=== PATIENT | male | born 1985 | race Caucasian/White ===

== ENCOUNTER 2021-09-26 15:47 | Outpatient (REF) | payer MEDICAID, SELFPAY ==
--- NOTE | ~2021-09-26 | US_ITS ---
EXAMINATION: US SCROTUM CLINICAL INFORMATION: Worsening swelling. History of left varicocele. COMPARISON: Ultrasound scrotum 12/08/2016. TECHNIQUE: A sonogram of the scrotum was performed assessing lyons-scale appearance and color Doppler flow. Spectral Doppler analysis of the arterial and venous flow were performed in the testes bilaterally. FINDINGS: RIGHT: Right testicle measures 5.9 x 2.8 x 3.7 cm, volume 32.5 mL. No focal parenchymal solid lesion is seen. There is a benign macrocalcification. Spectral Doppler analysis of the arterial and venous flow is normal in the right testis. Right epididymal head is normal in size. A 4 mm epididymal head cyst versus spermatocele is seen. No right hydrocele or varicocele is seen. Right epididymal Doppler flow is normal. LEFT: Left testicle measures 6.1 x 2.4 x 2.6 cm, volume 20.5 mL. There are a few scattered macrocalcifications incidentally noted. Spectral Doppler analysis of the arterial and venous flow is increased in the left testis. Left epididymal head is normal in size. A 7 mm left epidural head versus spermatocele is seen. No left varicocele is seen. There are left varicoceles, accentuated with Valsalva maneuver. Left epididymal Doppler flow is normal. US/US scrotum IMPRESSION: 1. There is mild asymmetric increase in left testicular vasculature, which can be associated with orchitis. This requires clinical correlation. 2. No focal testicular mass or torsion is seen bilaterally. 3. There are small bilateral epididymal head cysts versus spermatoceles. 4. There are left varicoceles, accentuated with Valsalva maneuver.
== END 2021-09-26 15:48 | disposition home or self-care (01) ==
LOC: HO.US 15:47
PROVIDERS: Visit Provider Nurse Practitioner Primary Care
DX: N50.89 Other specified disorders of the male genital organs (principal)
CPT/HCPCS: 76870

== ENCOUNTER 2023-06-10 06:04 | Outpatient (REF) | payer MEDICAID, SELFPAY | END 2023-06-10 06:05 | disposition home or self-care (01) | LOC: HO.HOSX 06:04 | PROVIDERS: Visit Provider Physician Assistant | DX: Z13.89 Encounter for screening for other disorder (principal) ==

== ENCOUNTER 2023-07-09 10:39 | Outpatient (REF) | payer MEDICAID, SELFPAY | END 2023-07-09 10:40 | disposition home or self-care (01) | LOC: HO.HOSX 10:39 | PROVIDERS: Visit Provider Physician Assistant | DX: Z13.89 Encounter for screening for other disorder (principal) ==

== ENCOUNTER 2023-10-28 12:52 | Outpatient (REF) | payer MEDICAID, SELFPAY ==
[2023-10-28 16:24] LABS: Estimated Average Glucose 114 mg/dL; Hemoglobin A1c % 5.6 % (<6.0)
[2023-10-28 16:43] LABS: Anion Gap 15 (12-20); Blood Urea Nitrogen 17 mg/dL (9-16); Carbon Dioxide 24 mmol/L (22-29); Chloride 103 mmol/L (96-108); Cholesterol 201 mg/dL (<200); Estimated Glomerular Filt Rate > 60; Glucose Random 114 mg/dL (60-115); HDL Cholesterol 42 mg/dL (>40); LDL Cholesterol Calculated 125 mg/dL (<100); Potassium 3.6 mmol/L (3.3-5.1); Sodium 138 mmol/L (135-145); Triglycerides 173 mg/dL (<150)
== END 2023-10-28 12:53 | disposition home or self-care (01) ==
LOC: HO.HHCL 12:52
PROVIDERS: Visit Provider Nurse Practitioner Primary Care
DX: E78.1 Pure hyperglyceridemia (principal); R73.01 Impaired fasting glucose; I10 Essential (primary) hypertension
CPT/HCPCS: 36415; 80048; 80061; 82043; 82570; 83036

== ENCOUNTER 2023-10-28 14:48 | Outpatient (REF) | payer MEDICAID, SELFPAY ==
[2023-10-28 17:35] LABS: Creatinine Urine 130.93 mg/dL; Microalbum/Creatinine Ratio Ur 4.5 ug/mg cr (<30)
== END 2023-10-28 14:49 | disposition home or self-care (01) ==
LOC: HO.HHCL 14:48
PROVIDERS: Visit Provider Nurse Practitioner Primary Care
DX: I10 Essential (primary) hypertension (principal)
CPT/HCPCS: 82043; 82570

== ENCOUNTER 2024-07-20 10:32 | Outpatient (AMB) | payer MEDICAID, SELFPAY ==
--- NOTE | 2024-07-20 10:34 | A.OFFVIS_ITS ---
Vital Signs 07/20/24 10:36 Height 6 ft 3 in Weight 278 lb BMI 34.7 Intake Visit Reasons: FINISHER HOT STRIP-Ganglion Cyst Of Left Wrist Intake Note: Shahram is a 38 year old right hand dominant male who presents today for a new patient visit with complaints of a cyst on the left wrist. It is on his volar aspect of hand. This causes him pain when he moves his left thumb, heavy lifting and applying pressure. He has noticed it has increased in size. Patient reports that he also has pain in his left elbow. Denies injury or any falls. Accompanied by: Adele Allergies No Known Allergies [No Known Allergies*] Allergy (Unverified 07/20/24 10:36) HPI HPI FINISHER HOT STRIP-Ganglion Cyst Of Left Wrist: Details: Patient 38-year-old male who presents for evaluation of left volar wrist ganglion cyst, ongoing for approximately 6 weeks. Patient states that this has began is very small and not bothersome, but has since grown larger and causes him discomfort with range of motion of the left wrist. Patient states he is interested in excision of this cyst. Denies any numbness or tingling in the left hand. No other acute complaints or concerns at this time. PENDING SALE TO [facility] Surgical History (Updated 07/20/24 @ 10:40 by SHIRA Devine) S/P cubital tunnel release Social History (Updated 07/20/24 @ 10:40 by SHIRA Devine) Current occupational status: employed Current occupation: chofer/ rt hand Review of Systems Const All systems reviewed & are unremarkable except as noted in HPI and below Physical Exam Vital Signs: BMI result Body Mass Index 34.7 Extrem Other: Patient is alert, oriented, and in no acute distress. Neuro: Normal sensation of the tips of all digits of the left hand at this time Vascular: Cap refill brisk Pain: No tenderness to palpation about the left volar wrist ganglion Patient does report pain with extension of the left wrist in the area of the cyst ROM: Patient is able to flex and extend all digits of the left hand fully and without difficulty Skin: There is noted to be a prominent, approximately 1.5 cm in diameter ganglion cyst noted on the volar aspect of the patient's left wrist No lacerations or abrasions. General: No ecchymosis, erythema, or evidence of infection. Psych: Appears grossly normal Affect normal Attitude cooperative Assessment & Plan Assessment & Plan (1) Ganglion cyst of volar aspect of left wrist: Code(s): M67.432 - Ganglion, left wrist Category: Medical Plan 1. Left wrist volar ganglion cyst I educated the patient about the condition. I discussed both operative and nonoperative treatment options. The patient would like to proceed with surgery. The risks and benefits of operative treatment were discussed with the patient and the patient wishes to proceed with surgery. These risks include, but are not limited to, risk of damage to blood vessels, nerves, tendons, infection, recurrence, incomplete relief of preoperative symptoms, persistent pain, possible need for further surgery, and the risks associated with regional blocks and/or anesthesia. Plan is to take the patient to the operating room at some point in the next few weeks for the following procedures: 1. Left volar wrist ganglion excision under general anesthesia All of the preoperative paperwork including the consent was discussed today. All of the patient's questions were answered in the clinic today. The patient understands that they will be in contact with our surgical scrub technologist to discuss scheduling their procedure. Patient denies diabetes, blood thinners, asthma, heart issues, lung issues, kidney issues, or current smoking. Coding Level of Care Code New Pt Level 4 (58719) Diagnoses Ganglion cyst of volar aspect of left wrist M67.432
[2024-07-20 10:36] VITALS: BMI 34.7
== END 2024-07-20 10:56 | disposition home or self-care (01) ==
PROVIDERS: PCP Nurse Practitioner Primary Care
DX: M67.432 Ganglion, left wrist (principal)
CPT/HCPCS: 99204

== ENCOUNTER → 2024-07-20 10:32 | Outpatient (BNVA) | payer MEDICAID, SELFPAY | PROVIDERS: PCP Nurse Practitioner Primary Care | DX: M67.432 Ganglion, left wrist (principal) | CPT/HCPCS: 99212 ==

== ENCOUNTER 2024-10-03 10:24 | Outpatient (AMB) | payer MEDICAID, SELFPAY ==
--- NOTE | 2024-10-03 10:57 | MHC.OFFVIS ---
Vital Signs 10/03/24 10:58 Height 6 ft 3 in Weight 278 lb BMI 34.7 Intake Visit Reasons: Preop - LT VWG Excision 10/05/24 Intake Note: Shahram 38 yr old male presents today for his pre- op visit for his left volar wrist ganglion cyst excision that is scheduled for 10/05/[address] Baltazar. Consents have been signed and surgery questions have been answered. Allergies No Known Allergies [No Known Allergies*] Allergy (Unverified 07/20/24 10:36) HPI HPI Preop - LT VWG Excision 10/05/24: Details: Shahram is a 38 year old right hand dominant man who presents for his left volar wrist ganglion. He reports this mass has been present for ~6 months, and has been increasing in size. 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 [facility] Medical History (Updated 10/03/24 @ 07:59 by Thania Mark RN) HTN (hypertension) Surgical History (Updated 07/20/24 @ 10:40 by SHIRA Devine) S/P cubital tunnel release Social History (Updated 07/20/24 @ 10:40 by SHIRA Devine) Current occupational status: employed Current occupation: chofer/ rt hand Review of Systems Const All systems reviewed & are unremarkable except as noted in HPI and below Physical Exam Vital Signs: BMI result Body Mass Index 34.7 Const General: cooperative, healthy appearing and no acute distress Orientation/consciousness: patient oriented x3 HEENT Head: Yes normocephalic and Yes atraumatic Eyes EOM: EOMs intact bilaterally Resp Effort & Inspection: normal respiratory effort and able to speak in complete sentences Cardio Jugular venous distension: no JVD Skin General skin exam: turgor normal Rashes: no rashes Neuro General: patient oriented x3 Extrem Other: Evaluation of Left Upper Extremity: The patient is alert, oriented, and in no acute distress Neuro: Median, Ulnar, Radial nerves motor and sensory intact and sensation is normal to the tips of all digits Vascular: Cap refill brisk ROM: He can make a fist and extend all his digits No locking or catching Skin: No lacerations or abrasions. General: No Ecchymosis. No Erythema or evidence of infection. There is a mass on the volar aspect of the right wrist, consistent with a ganglion, measuring ~1.5cm in diameter. This is at the distal wrist crease Psych Appearance: grossly normal Affect: normal affect Attitude: cooperative Assessment & Plan Assessment & Plan (1) Ganglion cyst of volar aspect of left wrist: Code(s): M67.432 - Ganglion, left wrist Category: Medical Plan Assessment & Plan: 1. Left volar wrist ganglion Measuring ~1.5cm in diameter I educated him about this condition I discussed operative and non-operative treatment options The patient would like to proceed with surgery He was given a note to return to work 5 days after surgery, with a 2lb weight limit for 4 weeks. He says he has a placement as a monitor and will not be required to do any lifting or dirty activities. The risks and benefits of operative treatment were discussed with the patient and the patient wishes to proceed with surgery. These risks include, but are not limited to risk of damage to blood vessels, nerves, tendons, infection, recurrence, incomplete relief of preoperative symptoms, persistent pain, possible need for further surgery and the risks associated with regional blocks and anesthesia. The plan is to take the patient to the operating room sometime on 10/05/24 for the following procedures: 1. Left volar wrist ganglion excision, under general All of the preoperative paperwork including the consent was reviewed today. All the patient's questions were answered. He denies Diabetes, blood thinners, asthma, heart, lung, kidney issues Scribed for Simona Baltazar MD by Gene Casillas, nuclear medical technologist, on 10/03/24 at 11:10 AM, EST. Coding Level of Care Code Est Pt Level 4 (84478) Diagnoses Ganglion cyst of volar aspect of left wrist M67.432
[2024-10-03 10:58] VITALS: BMI 34.7
--- OUTSIDE RECORDS SUMMARY | 2024-10-03 12:20 | XMS_ITS | Clinical Summary ---
Author Organization [employer] [facility] ity Address [address] [place] [address] Care Team Providers Care Senior J2Ee Developer Name Role Phone Unavailable Primary Care Provider Unavailabl e Social History Tobacco Use Types Packs/Day Years Used Date Smoking Tobacco: Never Assessed Sex and Gender Information Value Date Recorded Sex Assigned at Not on file Legal Sex Male 10:52 PM EST Gender Identity Not on file Sexual Orientation Not on file Plan of Treatment Health Maintenance Due Date Last Done Comments DTaP,Tdap,and Td Vaccines (1 - Tdap) 2005 Hepatitis B Vaccines (1 of 3 - 19+ 3-dose series) 2005 COVID-19 Vaccine (2023-2 5 season) 2024 Influenza Vaccine (Season Ended) 2025 HIB Vaccines Aged Out No longer eligi ble based on patient's age to complete this topic HPV Vaccines Aged Out No longer eligi ble based on patient's age to complete this topic Hepatitis A Vaccines Aged Out No long er eligible based on patient's age to complete this topic IPV Vaccines Aged Out No longer eligi ble based on patient's age to complete this topic MMR Vaccines Aged Out No longer eligi ble based on patient's age to complete this topic Meningococcal ACWY Vaccine Aged Out N o longer eligible based on patient's age to complete this topic Meningococcal B Vaccine Aged Out No l onger eligible based on patient's age to complete this topic Pneumococcal Vaccine: Pediat rics (0 to 5 Years) and At-Risk Patients (6 to 64 Years) Aged Out No longer eligible b ased on patient's age to complete this topic RSV Immunization Patients Un mahendra 20 months Aged Out No longer eligible b ased on patient's age to complete this topic Varicella Vaccines Aged Out No longer eligible based on patient's age to complete this topic
--- OUTSIDE RECORDS SUMMARY | 2024-10-03 12:20 | XMS_ITS | Encounter Summary ---
Author Organization [employer] Address [address] [facility] 7t [place] [address] Care Team Providers Care Stockbroker Name Role Phone Karon Dickson Primary Care Provider [phone] Reason for Visit * Reason Onset Date Comments Med Refill 10/20/2023 Encounter Details Date Type Department Care Team ([facility] st Contact Info) Description 10/20/2023 Refill [facility] [address] [place], [place] [phone] Karon Dickson ANP [address] [place] [address] Impingement syndrome of right shoulder region Social History Tobacco Use Types Packs/Day Years Used Date Smoking Tobacco: Former Cigarettes Q uit: 2015 Smokeless Tobacco: Never Alcohol Use Standard Drinks/Week Comments Not Currently 0 (1 standard drink = 0.6 oz pur e alcohol) Alcohol Answer Date Recorded Frequency of Alcohol Consumption Not on file 06/24/2023 Average Number of Drinks Not on file 023 Frequency of Binge Drinking Not on file 05/29 Score 0 06/24/2023 Depression Answer Date Recorded Patient Health Questionnaire-9 Score 0 06/24/2023 Patient Health Questionnaire-9 Score 0 06/24/2023 Last PHQ-9: Questionnaire Data Not on file 1 08/25/2022 Housing Stability Answer Date Recorded What is your housing situation today? I have lupe ramírez 04/12/[address] you li ve. Do you have problems with any of the following? None of the above 04/12/2023 Food Insecurity Answer Date Recorded Within the past 12 months, y ou worried that your food would run out before you got money to buy more: Never True 04/12/2023 Within the past 12 months,th e food you bought just didn't last and you didn't have enough money to get more: Never True Transportation Answer Date Recorded In the past 12 months, has l ack of transportation kept you from medical appts, meetings, work or from getting things needed for daily living? No 04/12/2023 Utilities Answer Date Recorded In the past 12 months, has t he [employer], gas, oil or water company threatened to shut off services in your home? No 04/12/2023 Depression Answer Date Recorded Patient Health Questionnaire-2 Score 0 06/24/2023 Sex and Gender Information Value Date Recorded Sex Assigned at Male 04/27/2022 10:30 AM EDT Legal Sex Male 10:30 AM EDT Gender Identity Male 04/27/2022 10:30 AM EDT Sexual Orientation Straight 04/27/2022 10 :30 AM EDT Travel History Travel Start Travel End [place] 08/18/2024 09/15/2024 [place] 08/26/2024 09/08/2024 documented as of this encounter Plan of Treatment Upcoming Encounters Date Type Department Care Team (Late st Contact Info) Description 10/10/2024 10:00 AM EDT Office Visit [facility] [address] [place] [address] Felton Lerma MD [address] [place] [address] 10/17/2024 11:00 AM EDT Office Visit [facility] [address] [place] [address] Karon Dickson ANP [address] [place] [phone] 11/10/2024 1:00 PM EDT Office Visit [address] [address] Karon Dickson ANP [address] [place] [address] 12/27/2024 10:30 AM EDT Clinical Support [facility] [address] [place] [address] Sol Lennon, RN [address] [place] [address] documented as of this encounter Visit Diagnoses Diagnosis Impingement syndrome of right shoulder region documented in this encounter Additional Health Concerns Assessment Noted Time PHQ-9 Depression Total Score: 0 06/24/20 23 2:47 PM EST documented as of this encounter Care Teams Stockbroker Relationship Specialty Start Date End Date Karon Dickson ANP [address] [place] [address] PCP - General Family Medicine 08/27/20 documented as of this encounter
--- OUTSIDE RECORDS SUMMARY | 2024-10-03 12:20 | XMS_ITS | Encounter Summary ---
Author Organization [email or web address] Address [address] [facility] 7[address] [place] [address] Care Team Providers Care Briquetter Operator Name Role Phone Karon Dickson Primary Care Provider [phone] Reason for Visit * Reason Onset Date Comments Med Refill 04/20/2023 Encounter Details Date Type Department Care Team ([facility] st Contact Info) Description 04/20/2023 Refill [facility] [address] [place] [address] Karon Dickson ANP [address] [place] [address] Impingement syndrome of right shoulder region Social History Tobacco Use Types Packs/Day Years Used Date Smoking Tobacco: Former Cigarettes Smokeless Tobacco: Never Alcohol Use Standard Drinks/Week Comments Not Currently 0 (1 standard drink = 0.6 oz pur e alcohol) PHQ-2 Answer Date Recorded Patient Health Questionnaire-2 Score 0 11/24/2022 Housing Stability Answer Date Recorded What is [...] the past 12 months, has t he electric, gas, oil or water company threatened to shut off services in your home? No 04/12/2023 Depression Answer Date Recorded Patient Health Questionnaire-2 Score 0 11/24/2022 Sex and Gender Information Value Date Recorded Sex Assigned at Male 04/27/2022 10:30 AM EDT Legal Sex Male 10:30 AM EDT Gender Identity Male 04/27/2022 10:30 AM EDT Sexual Orientation Straight 04/27/2022 10 :30 AM EDT Travel History Travel Start Travel End [place] 08/18/2024 09/15/2024 [place] 08/26/2024 09/08/2024 documented as of this encounter Plan of Treatment Upcoming Encounters Date Type Department Care Team ([facility] st Contact Info) Description 10/10/2024 10:00 AM EDT Office Visit [facility] MED [facility] PEDS [address] [place] [address] Felton Lerma MD [address] [place] [address] 10/17/2024 11:00 AM EDT Office Visit [address] [address] Karon Dickson ANP [address] [place] [address] 11/10/2024 1:00 PM EDT Office Visit [address] [address] Karon Dickson ANP [address] [place] [address] 12/27/2024 10:30 AM EDT Clinical Support [facility] MED & PEDS [address] [place] [address] Sol Lennon RN [address] [place] [address] documented as of this encounter Visit Diagnoses Diagnosis Impingement syndrome of right shoulder region documented in this encounter Care Teams Briquetter Operator Relationship Specialty Start Date End Date Karon Dickson ANP [address] [place] [address] PCP - General Family Medicine 08/27/20 documented as of this encounter
--- OUTSIDE RECORDS SUMMARY | 2024-10-03 12:20 | XMS_ITS | Encounter Summary ---
Author Organization [employer] Address [address] [facility] [address] [place] [address] Care Team Providers Care Management Scientist Name Role Phone Karon Dickson Primary Care Provider [phone] Reason for Visit * Reason Onset Date Comments Med Refill 12/16/2023 Encounter Details Date Type Department Care Team ([facility] st Contact Info) Description 12/16/2023 Refill [facility] [address] [place], [place] [phone] Karon Dickson ANP [address] [place] [address] Impingement syndrome of right shoulder region Social [...] the past 12 months, has t he [employer], gas, oil or water company threatened to [...] EDT Travel History Travel Start Travel End [place] 08/18/2024 09/15/2024 [place] 08/26/2024 09/08/2024 documented as of this encounter Plan of Treatment Upcoming Encounters Date Type Department Care Team (Late st Contact Info) Description 10/10/2024 10:00 AM EDT Office Visit [facility] [address] [place] [address] Felton Lerma MD [address] [place] [address] 10/17/2024 11:00 AM EDT Office Visit [facility] [address] [place] [address] Karon Dickson ANP [address] [place] [phone] 11/10/2024 1:00 PM EDT Office Visit [address] [address] Karon Dickson ANP [address] [place] [address] 12/27/2024 10:30 AM EDT Clinical Support [facility] [address] [place] [address] Sol Lennon, RN [address] [place] [address] documented as of this encounter Visit Diagnoses Diagnosis Impingement syndrome of right shoulder region documented in this encounter Additional Health Concerns Assessment Noted Time PHQ-9 Depression Total Score: 0 06/24/20 23 2:47 PM EST documented as of this encounter Care Teams Management Scientist Relationship Specialty Start Date End Date Karon Dickson ANP [address] [place] [address] PCP - General Family Medicine 08/27/20 documented as of this encounter
--- OUTSIDE RECORDS SUMMARY | 2024-10-03 12:20 | XMS_ITS | Encounter Summary ---
Author Organization [employer] Address [address] [facility] [address] [place] [address] Care Team Providers Care Measurement Coordinator Name Role Phone Karon Dickson Primary Care Provider Reason for Visit * Reason Comments Med Refill Encounter Details Date Type Department Care Team ([facility] st Contact Info) Description 08/31/2023 Refill [facility] MED & PEDS [address] [place], [place] [phone] Karon Dickson ANP [address] [place] [address] Impingement syndrome of right shoulder region Social [...] EDT Travel History Travel Start Travel End [place] 08/18/2024 09/15/2024 [place] 08/26/2024 09/08/2024 documented as of this encounter Plan of Treatment Upcoming Encounters Date Type Department Care Team (Late st Contact Info) Description 10/10/2024 10:00 AM EDT Office Visit [facility] PEDS [address] [place] [address] Felton Lerma MD [address] [place] [address] 10/17/2024 11:00 AM EDT Office Visit [address] [address] Karon Dickson ANP [address] [place] [phone] 11/10/2024 1:00 PM EDT Office Visit [address] [address] Karon Dickson ANP [address] [place] [address] 12/27/2024 10:30 AM EDT Clinical Support [facility] [address] [place] [address] Sol Lennon, RN [address] [place] [address] documented as of this encounter Visit Diagnoses Diagnosis Impingement syndrome of right shoulder region documented in this encounter Additional Health Concerns Assessment Noted Time PHQ-9 Depression Total Score: 0 06/24/20 23 2:47 PM EST documented as of this encounter Care Teams Measurement Coordinator Relationship Specialty Start Date End Date Karon Dickson ANP [address] [place] [address] PCP - General Family Medicine 08/27/20 documented as of this encounter
--- OUTSIDE RECORDS SUMMARY | 2024-10-03 12:20 | XMS_ITS | Encounter Summary ---
Author Organization [email or web address] Address [address] [facility] 7t [place] [address] Care Team Providers Care Mine Inspector Federal Name Role Phone Karon Dickson Primary Care Provider [phone] Reason for Visit * Reason Onset Date Comments Appointment Request 09/23/2023 Encounter Details Date Type Department Care Team ([facility] Contact Info) Description 09/23/2023 Telephone [facility] MEDICINE [address] [place], [place] [phone] Karon Dickson ANP [address] [place] [address] Appointment Request Social History Tobacco Use Types Packs/Day Years [...] EDT Travel History Travel Start Travel End [place] 08/18/2024 09/15/2024 [place] 08/26/2024 09/08/2024 documented as of this encounter Miscellaneous Notes * Telephone Encounter - Carol Calles - 09/23/2023 9:55 AM EDT Tc from pt calling to inform is Covid Positive, pt is requesting r/s appt. documented in this encounter Plan of Treatment Upcoming Encounters Date Type Department Care Team ([facility] st Contact Info) Description 10/10/2024 10:00 AM EDT Office Visit [facility] MED & PEDS [address] [place] [address] Felton Lerma MD 505 [place] [address] 10/17/2024 11:00 AM EDT Office Visit [facility] MEDICINE [address] [place] [address] Karon Dickson, ROBERT [address] [place] [address] 11/10/2024 1:00 PM EDT Office Visit [facility] MEDICINE [address] [place] [address] Karon Dickson ANP [address] [place] [address] 12/27/2024 10:30 AM EDT Clinical Support [facility]S [address] [place] [address] Sol Lennon, RN [address] [place] [address] documented as of this encounter Visit Diagnoses Not on filedocumented in this encounter Additional Health Concerns Assessment Noted Time PHQ-9 Depression Total Score: 0 06/24/20 23 2:47 PM EST documented as of this encounter Care Teams Mine Inspector Federal Relationship Specialty Start Date End Date Karon Dickson ANP [address] [place] [id number] PCP - General Family Medicine 08/27/20 documented as of this encounter
--- OUTSIDE RECORDS SUMMARY | 2024-10-03 12:20 | XMS_ITS | Encounter Summary ---
Author Organization [employer] Address [address] [facility] 7t [place] [address] Care Team Providers Care Washing Machine Loader Name Role Phone Karon Dickson Primary Care Provider [phone] Reason for Visit * Reason Onset Date Comments Med Refill 09/27/2023 Encounter Details Date Type Department Care Team ([facility] st Contact Info) Description 09/27/2023 Refill [facility] MEDICINE [address] [place], [place] [phone] Karon Dickson ANP [address] [place] [address] Cervical radiculopathy Social History Tobacco Use Types Packs/Day Years [...] the past 12 months, has t he [employer], gas, oil or water company threatened to [...] EDT Travel History Travel Start Travel End [place] 08/18/2024 09/15/2024 [place] 08/26/2024 09/08/2024 documented as of this encounter Plan of Treatment Upcoming Encounters Date Type Department Care Team (Late st Contact Info) Description 10/10/2024 10:00 AM EDT Office Visit [facility] MED & PEDS [address] [place] [address] Felton Lerma MD 505 [place] [address] 10/17/2024 11:00 AM EDT Office Visit [facility] MEDICINE [address] [place] [address] Karon Dickson ANP [address] [place] [address] 11/10/2024 1:00 PM EDT Office Visit [address] [address] Karon Dickson ANP [address] [place] [address] 12/27/2024 10:30 AM EDT Clinical Support [facility] MED & PEDS [address] [place] [address] Sol Lennon, RN 505 [place] [address] documented as of this encounter Visit Diagnoses Diagnosis Cervical radiculopathy Brachial neuritis or radiculitis nos documented in this encounter Additional Health Concerns Assessment Noted Time PHQ-9 Depression Total Score: 0 06/24/20 23 2:47 PM EST documented as of this encounter Care Teams Washing Machine Loader Relationship Specialty Start Date End Date Karon iDckson ANP [address] [place] [address] PCP - General Family Medicine 08/27/20 documented as of this encounter
--- OUTSIDE RECORDS SUMMARY | 2024-10-03 12:20 | XMS_ITS | Encounter Summary ---
Author Organization [employer] Address [address] [facility] 7t [place] [address] Care Team Providers Care Service Order Dispatcher Chief Name Role Phone Karon Dickson Primary Care Provider [phone] Encounter Details Date Type Department Care Team ([facility] Contact Info) Description 08/15/[address] [facility] MEDICINE [address] [place], [place] [phone] Karon Dickson ANP [address] [place], [place] [phone] Social History Tobacco Use Types Packs/Day Years [...] Answer Date Recorded Patient Health Questionnaire-9 Score 1 07/11/2024 Patient Health Questionnaire-9 Score 1 07/11/2024 Last PHQ-9: Questionnaire Data Not on file 0 07/11/2024 Housing Stability Answer Date Recorded What is [...] Date Recorded Patient Health Questionnaire-2 Score 0 07/11/2024 Sex and Gender Information Value Date Recorded Sex Assigned at Male 04/27/2022 10:30 AM EDT Legal Sex Male 10:30 AM EDT Gender Identity Male 04/27/2022 10:30 AM EDT Sexual Orientation Straight 04/27/2022 10 :30 AM EDT Travel History Travel Start Travel End [place] 08/18/2024 09/15/2024 [place] 08/26/2024 09/08/2024 documented as of this encounter Miscellaneous Notes * Telephone Encounter - Jessica Oliva RN - 08/15/2024 1:09 PM EST TC placed to pt who states that per [facility] pharmacy the pt needs additional information/documentation in order to have the Amnesteem 40 MG capsule prescribed. Ordering provider is Dr. Lerma at [facility] dermatology. Will forward this message to the [facility] inbox to inquire with Dr. Lerma and [facility] pharmacy what is needed. * Telephone Encounter - Mona Roblero - 08/15/2024 10:19 AM EST Tc from pt calling to inform pharmacy is not able to distribute medication due needing additional information. Shovel Handle Assembler called pharmacy and was inform a I pledge survey needs to be done. Pt has no moremedication left. documented in this encounter Plan of Treatment Upcoming Encounters Date Type Department Care Team (Late st Contact Info) Description 10/10/2024 10:00 AM EDT Office Visit [facility] MED & PEDS [address] [place] [address] Felton Lerma MD 505 [place] [address] 10/17/2024 11:00 AM EDT Office Visit [address] [address] Karon Dickson ANP [address] [place] [address] 11/10/2024 1:00 PM EDT Office Visit [address] [address] Karon Dickson ANP [address] [place] [address] 12/27/2024 10:30 AM EDT Clinical Support [facility] MED & PEDS [address] [place] [address] Sol Lennon RN 505 [place] [address] documented as of this encounter Visit Diagnoses Not on filedocumented in this encounter Additional Health Concerns Assessment Noted Time PHQ-9 Depression Total Score: 1 07/11/19 25 11:22 AM EST documented as of this encounter Care Teams Service Order Dispatcher Chief Relationship Specialty Start Date End Date Karon Dickson ANP [address] [place] [address] PCP - General Family Medicine 08/27/20 documented as of this encounter
--- OUTSIDE RECORDS SUMMARY | 2024-10-03 12:20 | XMS_ITS | Clinical Summary ---
Author Organization [employer] Address 75 [facility] 7t [place] [address] Care Team Providers Care Delivery Rep Name Role Phone Karon Dickson ROBERT Primary Care Provider Allergies No known active allergies Medications acetaminophen (Tylenol 8 Hour) 650 MG ER tablet Take 1 tablet by mouth in the morning and 1 tablet at noon and 1 tablet in the evening. 05/05/20 19 Active adapalene (Differin) 0.1 % gel Apply topically at bed time. 11/10/19 20 Active benzoyl peroxide (Benzac AC) 10 % external wash Apply topically every 12 (twelve) hours. 11/10/19 20 Active Blood Pressure Monitoring (Omron 3 Series BP Monitor) device USE TO CHECK BLOOD PRESSURE DIRECTED 03/30/20 22 Active hydrocortisone 2.5 % cream APPLY TOPICALLY TWICE A DAY FOR 1-2 WEEKS 04/29/20 22 Active B Complex Vitamins (vitamin B complex) tablet TAKE 1 TABLET BY MOUTH EVERY DAY 90 tablet 3 05/26/20 23 Active benzoyl peroxide (PanOxyl Foaming Wash) 10 % external washIndications: Inflammatory acne Apply topically 2 times daily. 187 g 2 02/22/20 24 025 Active adapalene (Differin) 0.1 % gelIndications:I nflammatory acne,Folliculiti s Apply topically at bedtime. 45 g 2 02/22/20 24 025 Active minocycline 50 MG capsuleIndicatio ns:Inflammatory acne TAKE 1 CAPSULE BY MOUTH EVERY DAY 30 capsule 2 05/31/20 24 Active olmesartan (BENIcar) 40 MG tabletIndication s:Essential hypertension Take 1 tablet (40 mg) by mouth Once per day. 90 tablet 1 07/19/19 25 Active famotidine (Pepcid) 20 MG tabletIndication s:Gastroesophage al reflux disease, unspecified whether esophagitis present TAKE 1 TABLET TWICE DAILY NEEDED FOR ACID REFLUX 180 tablet 08/15/19 25 Active ISOtretinoin (Amnesteem) 40 MG capsuleIndicatio ns:Inflammatory acne Take 1 capsule (40 mg) by mouth with breakfast and with evening meal. 60 capsule 08/21/19 25 Active diclofenac (Cataflam) 50 MG tabletIndication s:Cervical radiculopathy TAKE 1 TABLET BY MOUTH TWICE A DAY 60 tablet 09/15/19 25 Active lidocaine (Lidoderm) 5 % patch APPLY 1 PATCH ONTO SKIN EVERY DAY. MAY WEAR UP TO 12 HOURS, THEN REMOVE FOR 12 HOURS 30 patch 09/21/19 25 Active cyclobenzaprine (Flexeril) 5 MG tabletIndication s:Impingement syndrome of right shoulder region TAKE 1-2 TABS BY MOUTH AT BEDTIME NEEDED FOR MUSCLE CRAMP/SPASM 60 tablet 09/21/19 25 Active traMADol (Ultram) 50 MG tabletIndication s:Impingement syndrome of right shoulder region Take 2 tablets (100 mg) by mouth at bedtime for 7 days. 14 tablet 10/03/19 25 025 Active lidocaine (Lidoderm) 5 % patch APPLY 1 PATCH ONTO SKIN EVERY DAY. MAY WEAR UP TO 12 HOURS, THEN REMOVE FOR 12 HOURS 30 patch 08/15/19 25 025 Discontinued(R eorder (will not trigger notification to Pharmacy)) diclofenac (Cataflam) 50 MG tabletIndication s:Cervical radiculopathy TAKE 1 TABLET BY MOUTH TWICE A DAY 60 tablet 08/17/19 25 025 Discontinued(R eorder (will not trigger notification to Pharmacy)) cyclobenzaprine (Flexeril) 5 MG tabletIndication s:Impingement syndrome of right shoulder region TAKE 1-2 TABS BY MOUTH AT BEDTIME NEEDED FOR MUSCLE CRAMP/SPASM 60 tablet 08/17/19 25 025 Discontinued traMADol (Ultram) 50 MG tabletIndication s:Impingement syndrome of right shoulder region Take 2 tablets (100 mg) by mouth at bedtime for 28 days. 56 tablet 08/20/19 25 025 Discontinued(R eorder (will not trigger notification to Pharmacy)) traMADol (Ultram) 50 MG tabletIndication s:Impingement syndrome of right shoulder region Take 2 tablets (100 mg) by mouth at bedtime for 7 days. 14 tablet 09/15/19 25 09/20/ 025 Discontinued(R eorder (will not trigger notification to Pharmacy)) traMADol (Ultram) 50 MG tabletIndication s:Impingement syndrome of right shoulder region Take 2 tablets (100 mg) by mouth at bedtime for 7 days. Do not start before September 21, 2024. 14 tablet 09/22/19 25 025 Discontinued(R eorder (will not trigger notification to Pharmacy)) traMADol (Ultram) 50 MG tabletIndication s:Impingement syndrome of right shoulder region Take 2 tablets (100 mg) by mouth at bedtime for 7 days. 14 tablet 09/27/19 25 025 Discontinued(R eorder (will not trigger notification to Pharmacy)) Active Problems Problem Noted Date Diagnosed Date Long-term current use of opiate analgesic 2024 Essential hypertension 04/09/2023 Perineal abscess 02/13/2023 Assessment & Plan (02/13/2023 1:01 PM EDT): Pt w skin abscess in perineal area for the past 3 d. Induration is larger than 5 cm, so I recommended that the pt go to ED for drainage. Pt states he cannot go today but reports he will definitely go tomorrow. -Start Bactrim 1 DS BID, prescribed for 7 d - explained to pt that ATB may not be sufficient to treat this large abscess and I still recommended that the patient go to ED for I&D. -Alarm signs and Sx discussed. Pt understood risk of complications if drainage is not performed. -Also discussed w pt that if he keeps having recurrent infection, he can request for bacterial cultures at ER. If Staph aureus is found, he can discuss w PCP about decolonization treatment. 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 Cyst of epididymis 07/10/2016 Hypertriglyceridemia 04/20/2016 Inflammatory acne 04/03/2016 Anxiety 04/03/2016 Obesity 04/03/2016 Encounters Date Type Department Care Team Description 10/03/2024 Telephone [facility] [address] [place] [address] Catrachita Richards [place] appt reschedule (Spoke to pt about the request from him to reshedule ,did explain the pros and cons ,pt agreed to com in 10/17,he has some concerns he stated that if his concerns get worse he will go to walk in.) 10/01/2024 Refill [facility] MEDICINE [address] [place] [address] Karon Dickson ANP Impingement syndrome of right shoulder region 09/26/2024 10:30 AM EDT Clinical Support [facility] MED & PEDS [address] [place] [address] Sol Lennon, ANCA Low back pain due to bilateral sciatica (Primary Dx); retirement (current) use of opiate analgesic; Long-term current use of opiate analgesic 09/26/2024 Telephone [facility] MED & PEDS [address] [place] [address] Sol Lennon, ANCA 09/26/2024 Travel 09/26/2024 Refill [facility] MEDICINE [address] [place] [address] Karon Dickson ANP Impingement syndrome of right shoulder region 09/20/2024 Refill [facility] MED[facility]INE [address] [place] [address] Vane, MD Devon Impingement syndrome of right shoulder region; Cervical radiculopathy 09/20/2024 Refill [facility] MED[facility]INE [address] [place] [address] Karon Dickson ANP Impingement syndrome of right shoulder region 09/20/2024 Refill [facility] [address] [place] [address] Funmi Anders MD 09/15/2024 Travel 09/15/2024 Telephone [facility] MED & PEDS [address] [place] [address] Sol Lennon, ANCA medical education manager 09/14/2024 Refill [facility] MED[facility]INE [address] [place] [address] Kiana Stephenson MD Impingement syndrome of right shoulder region; Cervical radiculopathy 09/14/2024 Refill [facility] MED[facility] [address] [place] [address] Karon Dickson ANP Cervical radiculopathy 09/08/2024 Population Health Risk Score [facility] () [address] [phone] Provider, Population Health Generic 08/21/2024 11:15 AM EST Office Visit [facility] MED & PEDS [address] [place] [address] Felton Lerma MD Inflammatory acne 08/21/2024 Travel 08/18/2024 Refill [facility] MED[facility] [address] [place] [address] Karon Dickson ANP Impingement syndrome of right shoulder region 08/15/2024 Telephone [facility] [address] [place] [address] Karon Dickson ANP 08/15/2024 Refill [facility] [address] [place] [address] Karon Dickson ANP Cervical radiculopathy; Impingement syndrome of right shoulder region 08/13/2024 Refill [facility] [address] [place] [address] Karon Dickson ANP Gastroesophageal reflux disease, unspecified whether esophagitis present 08/07/2024 Refill [facility] & PEDS [address] [place] [address] Felton Lerma MD Inflammatory acne 08/02/2024 Telephone [facility] [address] [place] [address] Lizz Granados [place] Zofia recall 07/21/[address] [facility] [address] [place] [address] Karon Dickson ANP Impingement syndrome of right shoulder region 07/19/[address] [address] Marisela Vila RN Medication Question 07/18/[address] [address] Karon Dickson ANP Call Back Request; Appointment Request 07/11/2024 10:30 AM EST Office Visit [address] [address] Karon Dickson ANP Essential hypertension (Primary Dx); Inflammatory acne; Scalp pruritus; Ganglion cyst of wrist, left 07/11/2024 Travel 07/10/[address] [address] Catrachita Richards MA chart prep from Last 3 Months Immunizations Name Administration Dates Next Due Influenza injectable quadriv alent IIV4 with preservative 04/04/2019 Influenza injectable quadriv alent preservative free 03/30/2022,04/27/2020,07/08/2016 Moderna Covid-19 Vaccine 12+ 12/28/2020,11/17/19 21 Moderna Covid-19 Vaccine 6+ Bivalent 08/18/2022 Tdap 07/08/2016 Social History Tobacco Use Types Packs/Day Years Used Date Smoking Tobacco: Former Cigarettes Q uit: 2015 Smokeless Tobacco: Never Tobacco Cessation:Counseling Given: Not Answered Alcohol Use Standard Drinks/Week Comments Not Currently [...] housing situation today? I have lupe ramírez 08/21/[address] you li ve. Do you have problems with any of the following? None of the above 08/21/2024 Food Insecurity Answer Date Recorded Within the past 12 months, y ou worried that your food would run out before you got money to buy more: Never True 08/21/2024 Within the past 12 months,th e food you bought just didn't last and you didn't have enough money to get more: Never True Transportation Answer Date Recorded In the past 12 months, has l ack of transportation kept you from medical appts, meetings, work or from getting things needed for daily living? No 08/21/2024 Utilities Answer Date Recorded In the past 12 months, has t he electric, gas, oil or water company threatened to shut off services in your home? No 08/21/2024 Depression Answer Date Recorded Patient Health Questionnaire-2 Score 0 07/11/2024 Internet Access Answer Date Recorded Internet Access Q1 Yes 08/21/2024 Internet Access Q2 Not on file 08/21/2024 Sex and Gender Information Value Date Recorded Sex Assigned at Male 04/27/2022 10:30 AM EDT Legal Sex Male 10:30 AM EDT Gender Identity Male 04/27/2022 10:30 AM EDT Sexual Orientation Straight 04/27/2022 10 :30 AM EDT Travel History Travel Start Travel End [place] 08/18/2024 09/15/2024 [place] 08/26/2024 09/08/2024 Last Filed Vital Signs Vital Sign Reading Time Taken Comments Blood Pressure 137/85 08/21/2024 11:11 AM EST Pulse 96 08/21/2024 11:11 AM EST Temperature 36.5 ??C (97.7 ??F) 08/21/2024 11:[address] Respiratory Rate 20 08/21/2024 11:11 AM EST Oxygen Saturation 98% 08/21/2024 11:11 AM EST Inhaled Oxygen Concentration - - Weight 127 kg (281 lb) 08/21/2024 11:11 AM EST Height 190.5 cm (6' 3 ) 08/21/2024 11:11 AM EST Body Mass Index 35.12 08/21/2024 11:11 AM EST Plan of Treatment Upcoming Encounters Date Type Department Care Team (Late st Contact Info) Description 10/10/2024 10:00 AM EDT Office Visit [facility] [address] [place] [address] Felton Lerma MD [address] [place] [address] 10/17/2024 11:00 AM EDT Office Visit [address] [address] Karon Dickson, ANP [address] [place] [address] 11/10/2024 1:00 PM EDT Office Visit [address] [address] Karon Dickson, ANP [address] [place] [address] 12/27/2024 10:30 AM EDT Clinical Support [facility] [address] [place] [address] Sol Lennon RN [address] [place] [address] Health Maintenance Due Date Last Done Comments HIV Screening 1986 Family Planning (PISQ) 2001 Hepatitis C Screening 2004 Hepatitis B Vaccines (1 of 3 - 19+ 3-dose series) 2005 COVID-19 Vaccine ( season) 2024 08/18/2022, 12/28/2020, 11/16/2020 Influenza Vaccine (#1) 2024 , 04/27/2020, 04/04/2019, Additional history exists Alcohol/Substance Use Screening 07/11/2025 07/11/2024 Depression Screening 07/11/2025 07/11/2024, 07/11/19 25 SDOH Screening 08/21/2025 08/21/2024 Tobacco Screening 08/21/2025 08/21/2024 DTaP/Tdap/Td Vaccines (2 - Td or Tdap) 07/08/2026 07/08/2016 Lipid Panel 10/27/2028 10/28/2023, 05/06/2022, 03/21/2021 Zoster Vaccines (1 of 2) 2036 RSV Patients and Patients Aged 60 years or older (1 - 1-dose 75+ series) 2061 HIB Vaccines Aged Out No longer eligi [...] patient's age to complete this topic Meningococcal Vaccine Aged Out No gail sunni eligible based on patient's age to complete this topic Pneumococcal Vaccine: Pediatrics (0 to 5 Years) and At-Risk Patients (6 to 49) Years) Aged Out No longer eligible based on patient's age to complete this topic RSV under 20 months Aged Out No longe r eligible based on patient's age to complete this topic Rotavirus Vaccines Aged Out No longer eligible based on patient's age to complete this topic Procedures Procedure Name Priority Date/Time Associated Diagnosis Comments POCT JANIA-14 URINE DRUG SCREEN Routine 09/26/2024 11:07 AM EDT watermaster (current) use of opiate analgesic Low back pain due to bilateral sciatica LIPID PANEL, STANDARD Routine 10/28/2023 3:28 PM EDT Hypertriglyceridemi a from Last 3 Months or Most Recently Relevant to Health Maintenance Results * POCT JANIA-14 Urine Drug Screen (09/26/2024 11:07 AM EDT) Urine Urine specimen obtained by clean catch procedure / Unknown 09/26/2024 11:07 AM EDT Narrative Sol Lennon RN - 09/26/2024 11:07 AM EDT negative AMP, BAR, BUP, BZO, ZOIE, FTY, MDMA, MET, MOP, MTD, OXY, PCP, TCA, THC. Lot# [id number] Exp: 02-14-26 Karon Dickson ANP POINT OF CARE TEST ENTER/EDIT OR DERABLES Final Result * (ABNORMAL) Lipid Panel, Standard (10/28/2023 3:28 PM EDT) Triglycerides 173(H) <150 mg/dL [facility] Comment:Desirable Triglyceri de: less than 150 mg/dLBorderline High Triglyceride 150-199 mg/dLHigh Triglyceride: 200-499 mg/dLVery High Triglyceride: greater than or equal to 5OO mg/dL Cholesterol 201(H) <200 mg/dL [facility] Comment:Desirable Cholestero l: less than 200 mg/dLBorderline High Cholesterol: 200-239 mg/dLHigh Cholesterol: greater than 239 mg/dL LDL Cholesterol Calculated 125(H) <100 mg/dL [facility] Comment:Desirable LDL: less than 100 mg/dLNear Optimal/Above Optimal LDL: 110- 129 mg/dLBorderline High LDL: 130-159 mg/dLHigh LDL: 160-189 mg/dLVery High LDL: greater than or equal to 190 mg/dL HDL Cholesterol 42 >40 mg/dL [facility] Comment:Desirable HDL: great er than 40 mg/dL Note: This HDL assay may give artificially low results in patients with liver disease. Blood Venous blood specimen / Unknown 10/28/2023 3:28 PM EDT 10/28/2023 4:10 PM EDT Karon Dickson ANP LAB BLOOD ORDERABLES Final Resul t [facility] [address] [place] [address] [phone] from Last 3 Months or Most Recently Relevant to Health Maintenance Insurance [place] [address] C3 Care Teams Delivery Rep Relationship Specialty Start Date End Date Karon Dickson ANP [address] [place] [id number] PCP - General Family Medicine 08/27/20
--- OUTSIDE RECORDS SUMMARY | 2024-10-03 12:20 | XMS_ITS | Encounter Summary ---
Author Organization [facility] Address 75 [facility] 7 [place] [address] Care Team Providers Care Radio Station Operator Name Role Phone Karon Dickson Primary Care Provider [phone] Reason for Visit * Reason Onset Date Comments Call Back Request 07/18/2024 Appointment Request 07/18/2024 Encounter Details Date Type Department Care Team ([facility] Contact Info) Description 07/18/2024 Telephone [facility] [address] [place], [place] [phone] Karon Dickson ANP 230 [place] [address] Call Back Request; Appointment Request Social History Tobacco Use Types Packs/Day Years Used Date Smoking Tobacco: Former Cigarettes Q uit: 2014 Smokeless Tobacco: Never Alcohol Use Standard Drinks/Week [...] the past 12 months, has t he [employer] ([employer] gas, oil or water company threatened to [...] encounter Miscellaneous Notes * Telephone Encounter - Kendy Foley - 07/18/2024 8:23 AM EST Tc from pt requesting a callback to r/s appointment as pt can't make it today. documented in this encounter Plan of Treatment Upcoming Encounters Date Type Department Care Team (Late st Contact Info) Description 10/10/2024 10:00 AM EDT Office Visit [facility] MED & PEDS 505 [place] [address] Felton Lerma MD 505 [place] [address] 10/17/2024 11:00 AM EDT Office Visit [facility] MED[facility]INE [address] [place] [address] Karon Dickson ANP [address] [place] [address] 11/10/2024 1:00 PM EDT Office Visit [facility] [address] [place] [address] Karon Dickson ANP 230 [place] [address] 12/27/2024 10:30 AM EDT Clinical Support [facility] MED & PEDS 505 [place] [address] Sol Lennon, ANCA 505 [place] [address] documented as of this encounter Visit Diagnoses Not on filedocumented in this encounter Additional Health Concerns Assessment Noted Time PHQ-9 Depression Total Score: 1 07/11/19 25 11:22 AM EST documented as of this encounter Care Teams Radio Station Operator Relationship Specialty Start Date End Date Karon Dickson ANP [address] [place] [address] PCP - General Family Medicine 08/27/20 documented as of this encounter
--- OUTSIDE RECORDS SUMMARY | 2024-10-03 12:20 | XMS_ITS | Encounter Summary ---
Author Organization [employer] Address 75 [facility] 7t [place] [address] Care Team Providers Care Instructor Extension Work Name Role Phone Karon Dickson Primary Care Provider [phone] Reason for Visit * Reason Comments Med Refill Encounter Details Date Type Department Care Team ([facility] Contact Info) Description 04/20/2023 Refill [facility] MEDICINE 230 [place], [place] [phone] Karon Dickson ANP 230 [place] [address] Impingement syndrome of right shoulder region Social [...] EDT Travel History Travel Start Travel End [place] 08/18/2024 09/15/2024 [place] 08/26/2024 09/08/2024 documented as of this encounter Plan of Treatment Upcoming Encounters Date Type Department Care Team (Late st Contact Info) Description 10/10/2024 10:00 AM EDT Office Visit [facility] MED & PEDS 505 [place] [address] Felton Lerma MD 505 [place] [address] 10/17/2024 11:00 AM EDT Office Visit [facility] MEDICINE [address] [place] [address] Karon Dickson ANP [address] [place] [address] 11/10/2024 1:00 PM EDT Office Visit [address] [address] Karon Dickson ANP [address] [place] [address] 12/27/2024 10:30 AM EDT Clinical Support [facility] MED & PEDS 505 [place] [address] Sol Lennon RN 505 [place] [address] documented as of this encounter Visit Diagnoses Diagnosis Impingement syndrome of right shoulder region documented in this encounter Care Teams Instructor Extension Work Relationship Specialty Start Date End Date Karon Dickson ANP 230 [place] [address] PCP - General Family Medicine 08/27/20 documented as of this encounter
--- OUTSIDE RECORDS SUMMARY | 2024-10-03 12:20 | XMS_ITS | Encounter Summary ---
Author Organization [employer] Address 75 [facility] 7t [place] [address] Care Team Providers Care Hourly Shift Name Role Phone Karon Dickson Primary Care Provider [phone] Reason for Visit * Reason Onset Date Comments Med Refill 10/26/2023 Encounter Details Date Type Department Care Team ([facility] st Contact Info) Description 10/26/2023 Refill [facility] CHC MED & PEDS [address] [place], [place] [phone] Karon Dickson ANP 230 [place] [address] Impingement syndrome of right shoulder region Social [...] the past 12 months, has t he [employer], gas, oil or water company threatened to [...] Description 10/10/2024 10:00 AM EDT Office Visit [facility] CHC MED & PEDS 505 [place] [address] Felton Lerma MD 505 [place] [address] 10/17/2024 11:00 AM EDT Office Visit [facility] MEDICINE [address] [place] [address] Karon Dickson ANP [address] [place] [address] 11/10/2024 1:00 PM EDT Office Visit [address] [address] Karon Dickson ANP 230 [place] [address] 12/27/2024 10:30 AM EDT Clinical Support [facility] CHC MED & PEDS 505 [place] [address] Sol Lennon, RN 505 [place] [address] documented as of this encounter Visit Diagnoses Diagnosis Impingement syndrome of right shoulder region documented in this encounter Additional Health Concerns Assessment Noted Time PHQ-9 Depression Total Score: 0 06/24/20 23 2:47 PM EST documented as of this encounter Care Teams Hourly Shift Relationship Specialty Start Date End Date Karon Dickson ANP 230 [place] [address] PCP - General Family Medicine 08/27/20 documented as of this encounter
--- OUTSIDE RECORDS SUMMARY | 2024-10-03 12:20 | XMS_ITS | Encounter Summary ---
Author Organization [employer] Address 75 [facility] 7t [place] [address] Care Team Providers Care Consumer Sales Representative Name Role Phone Karon Dickson Primary Care Provider [phone] Reason for Visit * Reason Comments Med Refill Encounter Details Date Type Department Care Team ([facility] Contact Info) Description 04/21/2023 Refill [facility] MEDICINE 230 [place], [place] [phone] Karon Dickson ANP 230 [place] [address] Impingement syndrome of right shoulder region Social [...] Description 10/10/2024 10:00 AM EDT Office Visit [facility] MED & PEDS 505 [place] [address] Felton Lerma MD 505 [place] [address] 10/17/2024 11:00 AM EDT Office Visit [facility] MEDICINE [address] [place] [address] Karon Dickson ANP [address] [place] [address] 11/10/2024 1:00 PM EDT Office Visit [address] [address] Karon Dickson ANP [address] [place] [address] 12/27/2024 10:30 AM EDT Clinical Support [facility] MED & PEDS 505 [place] [address] Sol Lennon RN 505 [place] [address] documented as of this encounter Visit Diagnoses Diagnosis Impingement syndrome of right shoulder region documented in this encounter Care Teams Consumer Sales Representative Relationship Specialty Start Date End Date Karon Dickson ANP 230 [place] [address] PCP - General Family Medicine 08/27/20 documented as of this encounter
--- OUTSIDE RECORDS SUMMARY | 2024-10-03 12:20 | XMS_ITS | Encounter Summary ---
Author Organization [employer] Address [address] [facility] 7t [place] [address] Care Team Providers Care Bilingual Administrative Assistant Name Role Phone Karon iDckson Primary Care Provider [phone] Reason for Visit * Reason Onset Date Comments Med Refill 12/16/2023 Encounter Details Date Type Department Care Team ([facility] st Contact Info) Description 12/16/2023 Refill [facility] MEDICINE 230 [place] [address] Karon Dickson ANP 230 [place] [address] Impingement syndrome of right shoulder region; Cervical radiculopathy Social History Tobacco Use Types [...] the past 12 months, has t he [employer], gas, oil or water company threatened to [...] Description 10/10/2024 10:00 AM EDT Office Visit [facility] CHC MED & PEDS 505 [place] [address] Felton Lerma MD 505 [place] [address] 10/17/2024 11:00 AM EDT Office Visit [facility] MEDICINE [address] [place] [address] Karon Dickson ANP [address] [place] [address] 11/10/2024 1:00 PM EDT Office Visit [address] [address] Karon Dickson ANP 230 [place] [address] 12/27/2024 10:30 AM EDT Clinical Support [facility] MED & PEDS 505 [place] [address] Sol Lennon, ANCA 505 [place] [address] documented as of this encounter Visit Diagnoses Diagnosis Impingement syndrome of right shoulder region Cervical radiculopathy Brachial neuritis or radiculitis nos documented in this encounter Additional Health Concerns Assessment Noted Time PHQ-9 Depression Total Score: 0 06/24/20 23 2:47 PM EST documented as of this encounter Care Teams Bilingual Administrative Assistant Relationship Specialty Start Date End Date Karon Dickson ANP [address] [place] [address] PCP - General Family Medicine 08/27/20 documented as of this encounter
--- OUTSIDE RECORDS SUMMARY | 2024-10-03 12:21 | XMS_ITS | Encounter Summary ---
Author Organization [facility] [facility] [employer] [employer] Address 75 [facility] 7t [place] [address] Care Team Providers Care Weight And Balance Control Agent Name Role Phone Karon Dickson Primary Care Provider [phone] Reason for Visit * Reason Onset Date Comments Appointment Request 08/24/2023 Encounter Details Date Type Department Care Team ([facility] Contact Info) Description 08/24/2023 Telephone [facility] MEDICINE 230 [place], [place] [phone] Karon Dickson ANP 230 [place] [address] Appointment Request Social History Tobacco Use Types [...] EDT Travel History Travel Start Travel End [place] 08/18/2024 09/15/2024 [place] 08/26/2024 09/08/2024 documented as of this encounter Miscellaneous Notes * Telephone Encounter - Mona Roblero - 08/24/2023 1:09 PM EST Tc from pt [place] appt [place] and would not be able to attend appt on time . Would like to r/s . documented in this encounter Plan of Treatment Upcoming Encounters Date Type Department Care Team (Late st Contact Info) Description 10/10/2024 10:00 AM EDT Office Visit [facility] CHC MED & PEDS 505 [place] [address] Felton Lerma MD 505 [place] [address] 10/17/2024 11:00 AM EDT Office Visit [facility] MEDICINE 230 [place], [place] [phone] Karon Dickson, ANP 230 [place] [address] 11/10/2024 1:00 PM EDT Office Visit [facility] MEDICINE 230 [place] [address] Karon Dickson ANP 230 [place] [address] 12/27/2024 10:30 AM EDT Clinical Support [facility] CHC MED & PEDS 505 [place], [place] [phone] Sol Lennon, RN 505 [place] [address] documented as of this encounter Visit Diagnoses Not on filedocumented in this encounter Additional Health Concerns Assessment Noted Time PHQ-9 Depression Total Score: 0 06/24/20 23 2:47 PM EST documented as of this encounter Care Teams Weight And Balance Control Agent Relationship Specialty Start Date End Date Karon Dickson ANP [address] [place] [address] PCP - General Family Medicine 08/27/20 documented as of this encounter
--- OUTSIDE RECORDS SUMMARY | 2024-10-03 12:21 | XMS_ITS | Encounter Summary ---
Author Organization [employer] Address [address] [facility] 7t [place] [address] Care Team Providers Care Color Worker Name Role Phone Karon Dickson Primary Care Provider [phone] Reason for Visit * Reason Onset Date Comments Med Refill 09/14/2024 Encounter Details Date Type Department Care Team ([facility] st Contact Info) Description 09/14/2024 Refill [facility] MED[facility]INE 230 [place], [place] [phone] Karon Dickson ANP 230 [place] [address] Cervical radiculopathy Social History Tobacco Use Types [...] the past 12 months, has t he [employer], gas, oil or water company threatened to [...] EDT Office Visit [facility] CHC MED & PEDS 505 [place] [address] Felton Lerma MD 505 [place] [address] 10/17/2024 11:00 AM EDT Office Visit [address] [address] Karon Dickson ANP 230 [place] [address] 11/10/2024 1:00 PM EDT Office Visit [address] [address] Karon Dickson ANP 230 [place] [address] 12/27/2024 10:30 AM EDT Clinical Support [facility] CHC MED & PEDS 505 [place] [address] Sol Lennon, RN 505 [place] [address] documented as of this encounter Visit Diagnoses Diagnosis Cervical radiculopathy Brachial neuritis or radiculitis nos documented in this encounter Additional Health Concerns Assessment Noted Time PHQ-9 Depression Total Score: 1 07/11/19 25 11:22 AM EST documented as of this encounter Care Teams Color Worker Relationship Specialty Start Date End Date Karon Dickson ANP 230 [place] [address] PCP - General Family Medicine 08/27/20 documented as of this encounter
--- OUTSIDE RECORDS SUMMARY | 2024-10-03 12:21 | XMS_ITS | Encounter Summary ---
Author Organization [employer] Address 75 [facility] 7t [place] [address] Care Team Providers Care Student Specialist Name Role Phone Karon Dickson Primary Care Provider [phone] Reason for Visit * Reason Onset Date Comments Med Refill 07/28/2023 Encounter Details Date Type Department Care Team ([facility] st Contact Info) Description 07/28/2023 Refill [facility] MEDICINE 230 [place], [place] [phone] Karon Dickson ANP 230 [place] [address] Essential hypertension Social History Tobacco Use Types Packs/Day Years [...] EDT Travel History Travel Start Travel End [place] 08/18/2024 09/15/2024 [place] 08/26/2024 09/08/2024 documented as of this encounter Plan of Treatment Upcoming Encounters Date Type Department Care Team (Late st Contact Info) Description 10/10/2024 10:00 AM EDT Office Visit [facility] CHC MED & PEDS 505 [place] [address] Felton Lerma MD 505 [place] [address] 10/17/2024 11:00 AM EDT Office Visit [address] [address] Karon Dickson ANP [address] [place] [address] 11/10/2024 1:00 PM EDT Office Visit [address] [address] Karon Dickson ANP [address] [place] [address] 12/27/2024 10:30 AM EDT Clinical Support [facility] CHC MED & PEDS [address] [place] [address] Sol Lennon, RN [address] [place] [address] documented as of this encounter Visit Diagnoses Diagnosis Essential hypertension Unspecified essential hypertension documented in this encounter Additional Health Concerns Assessment Noted Time PHQ-9 Depression Total Score: 0 06/24/20 23 2:47 PM EST documented as of this encounter Care Teams Student Specialist Relationship Specialty Start Date End Date Karon Dickson ANP 230 [place] [address] PCP - General Family Medicine 08/27/20 documented as of this encounter
--- OUTSIDE RECORDS SUMMARY | 2024-10-03 12:21 | XMS_ITS | Encounter Summary ---
Author Organization [employer] Address 75 [facility] 7t [place] [address] Care Team Providers Care Windows Administrator Name Role Phone aKron Dickson Primary Care Provider [phone] Reason for Visit * Reason Onset Date Comments Med Refill 04/28/2024 Encounter Details Date Type Department Care Team ([facility] st Contact Info) Description 04/28/2024 Refill [facility] CHC MED & PEDS [address] [place], [place] [phone] Karon Dickson ANP 230 [place] [address] Impingement syndrome of right shoulder region Social [...] the past 12 months, has t he [employer], gas, oil or water company threatened to [...] EDT Travel History Travel Start Travel End [place] 08/18/2024 09/15/2024 [place] 08/26/2024 09/08/2024 documented as of this encounter Plan of Treatment Upcoming Encounters Date Type Department Care Team (Late st Contact Info) Description 10/10/2024 10:00 AM EDT Office Visit [facility] CHC MED & PEDS 505 [place] [address] Felton Lerma MD 505 [place] [address] 10/17/2024 11:00 AM EDT Office Visit [facility] MEDICINE [address] [place] [address] Karon Dickson ANP [address] [place] [address] 11/10/2024 1:00 PM EDT Office Visit [address] [address] Karon Dickson ANP 230 [place] [address] 12/27/2024 10:30 AM EDT Clinical Support [facility] MED & PEDS 505 [place] [address] Sol Lennon, RN 505 [place] [address] documented as of this encounter Visit Diagnoses Diagnosis Impingement syndrome of right shoulder region documented in this encounter Additional Health Concerns Assessment Noted Time PHQ-9 Depression Total Score: 0 06/24/20 23 2:47 PM EST documented as of this encounter Care Teams Windows Administrator Relationship Specialty Start Date End Date Karon Dickson ANP 230 [place] [address] PCP - General Family Medicine 08/27/20 documented as of this encounter
--- OUTSIDE RECORDS SUMMARY | 2024-10-03 12:21 | XMS_ITS | Encounter Summary ---
Author Organization [employer] Address 75 [facility] 7t [place] [address] Care Team Providers Care Prepress Operator Name Role Phone Karon Dickson Primary Care Provider [phone] Reason for Visit * Reason Onset Date Comments Med Refill 08/04/2023 Encounter Details Date Type Department Care Team ([facility] st Contact Info) Description 08/04/2023 Refill [facility] MEDICINE 230 [place], [place] [phone] Karon Dickson ANP 230 [place] [address] Cervical radiculopathy Social History Tobacco Use Types [...] the past 12 months, has t he [employer], gas, oil or water company threatened to [...] EDT Travel History Travel Start Travel End [place] 08/18/2024 09/15/2024 [place] 08/26/2024 09/08/2024 documented as of this encounter Plan of Treatment Upcoming Encounters Date Type Department Care Team (Late st Contact Info) Description 10/10/2024 10:00 AM EDT Office Visit [facility] CHC MED & PEDS 505 [place] [address] Felton Lerma MD 505 [place] [address] 10/17/2024 11:00 AM EDT Office Visit [facility] MEDICINE [address] [place] [address] Karon Dickson ANP [address] [place] [address] 11/10/2024 1:00 PM EDT Office Visit [address] [address] Karon Dickson ANP [address] [place] [address] 12/27/2024 10:30 AM EDT Clinical Support [facility] MED & PEDS 505 [place] [address] Sol Lennon, RN 505 [place] [address] documented as of this encounter Visit Diagnoses Diagnosis Cervical radiculopathy Brachial neuritis or radiculitis nos documented in this encounter Additional Health Concerns Assessment Noted Time PHQ-9 Depression Total Score: 0 06/24/20 23 2:47 PM EST documented as of this encounter Care Teams Prepress Operator Relationship Specialty Start Date End Date Karon Dickson ANP 230 [place] [address] PCP - General Family Medicine 08/27/20 documented as of this encounter
--- OUTSIDE RECORDS SUMMARY | 2024-10-03 12:21 | XMS_ITS | Encounter Summary ---
Author Organization [employer] Address 75 [facility] 7t [place] [address] Care Team Providers Care Electronics Installer Name Role Phone Karon Dickson Primary Care Provider [phone] Reason for Visit * Reason Onset Date Comments Med Refill 11/18/2023 Encounter Details Date Type Department Care Team ([facility] st Contact Info) Description 11/18/2023 Refill [facility] CHC MED & PEDS [address] [place], [place] [phone] Karon Dickson ANP 230 [place] [address] Impingement syndrome of right shoulder region Social [...] the past 12 months, has t he [employer], gas, oil or water company threatened to [...] Description 10/10/2024 10:00 AM EDT Office Visit [facility] CHC MED & PEDS 505 [place] [address] Felton Lerma MD 505 [place] [address] 10/17/2024 11:00 AM EDT Office Visit [facility] MEDICINE [address] [place] [address] Karon Dickson ANP [address] [place] [address] 11/10/2024 1:00 PM EDT Office Visit [address] [address] Karon Dickson ANP 230 [place] [address] 12/27/2024 10:30 AM EDT Clinical Support [facility] CHC MED & PEDS [address] [place] [address] Sol Lennon, RN 505 [place] [address] documented as of this encounter Visit Diagnoses Diagnosis Impingement syndrome of right shoulder region documented in this encounter Additional Health Concerns Assessment Noted Time PHQ-9 Depression Total Score: 0 06/24/20 23 2:47 PM EST documented as of this encounter Care Teams Electronics Installer Relationship Specialty Start Date End Date Karon Dickson ANP 230 [place] [address] PCP - General Family Medicine 08/27/20 documented as of this encounter
--- OUTSIDE RECORDS SUMMARY | 2024-10-03 12:21 | XMS_ITS | Encounter Summary ---
Author Organization [employer] Address 75 [facility] 7t [place] [address] Care Team Providers Care Hog Grader Name Role Phone Karon Dickson Primary Care Provider [phone] Reason for Visit * Reason Onset Date Comments Med Refill 05/28/2024 Encounter Details Date Type Department Care Team ([facility] st Contact Info) Description 05/28/2024 Refill [facility] CH[facility] MED & PEDS [address] [place], [place] [phone] Karon Dickson ANP 230 [place] [address] Impingement syndrome of right shoulder region Social [...] the past 12 months, has t he [employer], gas, oil or water company threatened to [...] EDT Travel History Travel Start Travel End [place] 08/18/2024 09/15/2024 [place] 08/26/2024 09/08/2024 documented as of this encounter Plan of Treatment Upcoming Encounters Date Type Department Care Team (Late st Contact Info) Description 10/10/2024 10:00 AM EDT Office Visit [facility] CHC MED & PEDS 505 [place] [address] Felton Lerma MD 505 [place] [address] 10/17/2024 11:00 AM EDT Office Visit [facility] MEDICINE [address] [place] [address] Karon Dickson ANP [address] [place] [address] 11/10/2024 1:00 PM EDT Office Visit [address] [address] Karon Dickson ANP 230 [place] [address] 12/27/2024 10:30 AM EDT Clinical Support [facility] CHC MED & PEDS 505 [place] [address] Sol Lennon, RN 505 [place] [address] documented as of this encounter Visit Diagnoses Diagnosis Impingement syndrome of right shoulder region documented in this encounter Additional Health Concerns Assessment Noted Time PHQ-9 Depression Total Score: 0 06/24/20 23 2:47 PM EST documented as of this encounter Care Teams Hog Grader Relationship Specialty Start Date End Date Karon Dickson ANP 230 [place] [address] PCP - General Family Medicine 08/27/20 documented as of this encounter
--- OUTSIDE RECORDS SUMMARY | 2024-10-03 12:21 | XMS_ITS | Encounter Summary ---
Author Organization [employer] Address 75 [facility] 7t [place] [address] Care Team Providers Care Warehouse Distribution Associate Name Role Phone Karon Dickson ROBERT Primary Care Provider [phone] Reason for Visit * Reason Onset Date Comments Med Refill 09/20/2024 Encounter Details Date Type Department Care Team ([facility] st Contact Info) Description 09/20/2024 Refill [facility] MEDICINE 230 [place] [address] Funmi Anders MD 230 [place] [address] Social History Tobacco Use Types Packs/Day Years [...] EDT Travel History Travel Start Travel End [place] 08/18/2024 09/15/2024 [place] 08/26/2024 09/08/2024 documented as of this encounter Plan of Treatment Upcoming Encounters Date Type Department Care Team (Late st Contact Info) Description 10/10/2024 10:00 AM EDT Office Visit [facility] MED & PEDS [address] [place] [address] Felton Lerma MD 505 [place] [address] 10/17/2024 11:00 AM EDT Office Visit [address] [address] Karon Dickson ANP [address] [place] [address] 11/10/2024 1:00 PM EDT Office Visit [address] [address] Karon Dickson ANP 230 [place] [address] 12/27/2024 10:30 AM EDT Clinical Support [facility] CH[facility] MED & PEDS 505 [place] [address] Sol Lennon, RN [address] [place] [address] documented as of this encounter Visit Diagnoses Not on filedocumented in this encounter Additional Health Concerns Assessment Noted Time PHQ-9 Depression Total Score: 1 07/11/19 25 11:22 AM EST documented as of this encounter Care Teams Warehouse Distribution Associate Relationship Specialty Start Date End Date Karon Dickson ANP [address] [place] [address] PCP - General Family Medicine 08/27/20 documented as of this encounter
--- OUTSIDE RECORDS SUMMARY | 2024-10-03 12:21 | XMS_ITS | Encounter Summary ---
Author Organization [employer] Address 75 [facility] 7t [place] [address] Care Team Providers Care Courtroom Clerk Name Role Phone Karon Dickson Primary Care Provider [phone] Reason for Visit * Reason Comments Med Refill Encounter Details Date Type Department Care Team (Late Contact Info) Description 10/15/2022 Refill [facility] MEDICINE 230 [place], [place] [phone] Karon Dickson ANP 230 [place] [address] Impingement syndrome of right shoulder region Social [...] [place] 08/18/2024 09/15/2024 [place] 08/26/2024 09/08/2024 COVID-19 Exposure Response Date Recorded In the last 10 days, have yo u been in contact with someone who was confirmed or suspected to have Coronavirus/COVID-19? No / Unsure 10/16/2022 9:58 AM EDT documented as of this encounter Plan of Treatment Upcoming Encounters Date Type Department Care Team ([facility] Contact Info) Description 10/10/2024 10:00 AM EDT Office Visit [facility] CH[facility] MED & PEDS [address] [place] [address] Felton Lerma MD 505 [place] [address] 10/17/2024 11:00 AM EDT Office Visit [address] [address] Karon Dickson ANP [address] [place] [address] 11/10/2024 1:00 PM EDT Office Visit [address] [address] Karon Dickson ANP [address] [place] [address] 12/27/2024 10:30 AM EDT Clinical Support [facility] CH[facility] MED & PEDS 505 [place] [address] Sol Lennon RN 505 [place] [address] documented as of this encounter Visit Diagnoses Diagnosis Impingement syndrome of right shoulder region documented in this encounter Care Teams Courtroom Clerk Relationship Specialty Start Date End Date Karon Dickson ANP [address] [place] [address] PCP - General Family Medicine 08/27/20 documented as of this encounter
--- OUTSIDE RECORDS SUMMARY | 2024-10-03 12:21 | XMS_ITS | Encounter Summary ---
Author Organization [employer] Address 75 [facility] 7t [place] [address] Care Team Providers Care Director Medicare Sales Name Role Phone Karon Dickson ROBERT Primary Care Provider [phone] Encounter Details Date Type Department Care Team ([facility] [address] Contact Info) Description 06/19/2024 Orders Only [facility] CHC MED & PEDS 505 [place], [place] [phone] Felton Lerma MD 505 [place] [address] Social History Tobacco Use Types Packs/Day Years [...] EDT Travel History Travel Start Travel End [place] 08/18/2024 09/15/2024 [place] 08/26/2024 09/08/2024 documented as of this encounter Plan of Treatment Upcoming Encounters Date Type Department Care Team ([facility] st Contact Info) Description 10/10/2024 10:00 AM EDT Office Visit [facility] MED & PEDS 505 [place] [address] Felton Lerma MD 505 [place] [address] 10/17/2024 11:00 AM EDT Office Visit [address] [address] Karon Dickson ANP [address] [place] [address] 11/10/2024 1:00 PM EDT Office Visit [address] [address] Karon Dickson ANP [address] [place] [address] 12/27/2024 10:30 AM EDT Clinical Support [facility] CHC MED & PEDS 505 [place] [address] Sol Lennon, RN 505 [place] [address] documented as of this encounter Visit Diagnoses Not on filedocumented in this encounter Additional Health Concerns Assessment Noted Time PHQ-9 Depression Total Score: 0 06/24/20 23 2:47 PM EST documented as of this encounter Care Teams Director Medicare Sales Relationship Specialty Start Date End Date Karon Dickson ANP [address] [place] [address] PCP - General Family Medicine 08/27/20 documented as of this encounter
--- OUTSIDE RECORDS SUMMARY | 2024-10-03 12:21 | XMS_ITS | Encounter Summary ---
Author Organization [employer] Address 75 [facility] 7t [place] [address] Care Team Providers Care Radial Drill Operator Name Role Phone Karon Dickson Primary Care Provider [phone] Reason for Visit * Reason Onset Date Comments Med Refill 07/28/2023 Encounter Details Date Type Department Care Team ([facility] st Contact Info) Description 07/28/[address] [facility] MEDICINE 230 [place], [place] [phone] Karon Dickson ANP 230 [place] [address] Gastroesophageal reflux disease, unspecified whether esophagitis present Social History Tobacco Use Types Packs/Day Years [...] the past 12 months, has t he [employer], gas, oil or water company threatened to [...] 10:00 AM EDT Office Visit [facility] CHC MED & PEDS 505 [place] [address] Felton Lerma MD 505 [place] [address] 10/17/2024 11:00 AM EDT Office Visit [facility] MEDICINE [address] [place] [address] Karon Dickson ANP [address] [place] [address] 11/10/2024 1:00 PM EDT Office Visit [address] [address] Karon Dickson ANP 230 [place] [address] 12/27/2024 10:30 AM EDT Clinical Support [facility] MED & PEDS 505 [place] [address] Sol Lennon, RN 505 [place] [address] documented as of this encounter Visit Diagnoses Diagnosis Gastroesophageal reflux disease, unspecified whether esophagitis present documented in this encounter Additional Health Concerns Assessment Noted Time PHQ-9 Depression Total Score: 0 06/24/20 23 2:47 PM EST documented as of this encounter Care Teams Radial Drill Operator Relationship Specialty Start Date End Date Karon Dickson ANP 230 [place] [address] PCP - General Family Medicine 08/27/20 documented as of this encounter
--- OUTSIDE RECORDS SUMMARY | 2024-10-03 12:21 | XMS_ITS | Encounter Summary ---
Author Organization [employer] Address 75 [facility] 7t [place] [address] Care Team Providers Care Cco Name Role Phone Karon Dickson Primary Care Provider [phone] Reason for Visit * Reason Onset Date Comments Med Refill 10/01/2024 Encounter Details Date Type Department Care Team ([facility] st Contact Info) Description 10/01/2024 Refill [facility] MEDICINE 230 [place], [place] [phone] Karon Dickson ANP 230 [place] [address] Impingement syndrome of right shoulder region Social [...] the past 12 months, has t he [employer], gas, oil or water company threatened to [...] Description 10/10/2024 10:00 AM EDT Office Visit [facility] CHC MED & PEDS 505 [place] [address] Felton Lerma MD 505 [place] [address] 10/17/2024 11:00 AM EDT Office Visit [address] [address] Karon Dickson ANP 230 [place] [address] 11/10/2024 1:00 PM EDT Office Visit [address] [address] Karon Dickson ANP 230 [place] [address] 12/27/2024 10:30 AM EDT Clinical Support [facility] CHC MED & PEDS [address] [place] [address] Sol Lennon, RN [address] [place] [address] documented as of this encounter Visit Diagnoses Diagnosis Impingement syndrome of right shoulder region documented in this encounter Additional Health Concerns Assessment Noted Time PHQ-9 Depression Total Score: 1 07/11/19 25 11:22 AM EST documented as of this encounter Care Teams Cco Relationship Specialty Start Date End Date Karon Dickson ANP 230 [place] [address] PCP - General Family Medicine 08/27/20 documented as of this encounter
--- OUTSIDE RECORDS SUMMARY | 2024-10-03 12:21 | XMS_ITS | Encounter Summary ---
Author Organization [employer] Address 75 [facility] 7t [place] [address] Care Team Providers Care Chopper Operator Name Role Phone Karon Dickson Primary Care Provider [phone] Reason for Visit * Reason Onset Date Comments appt reschedule 10/03/2024 Spoke to pt abou t the request from him to reshedule ,did explain the pros and cons ,pt agreed to com in 10/17,he has some concerns he stated that if his concerns get worse he will go to walk in. Encounter Details Date Type Department Care Team ([facility] st Contact Info) Description 10/03/2024 Telephone [facility] 230 [place], [place] [phone] Catrachita Richards [place] appt reschedule (Spoke to pt about the request from him to reshedule ,did explain the pros and cons ,pt agreed to com in 10/17,he has some concerns he stated that if his concerns get worse he will go to walk in.) Social History Tobacco Use Types Packs/Day Years [...] encounter Miscellaneous Notes * Telephone Encounter - Catrachita Richards [place] - 10/03/2024 11:59 AM EDT Spoke to pt about the request from him to reshedule ,did explain the pros and cons ,pt agreed to com in 10/17,he has some concerns he stated that if his concerns get worse he will go to walk in. documented in this encounter Plan of Treatment Upcoming Encounters Date Type Department Care Team (Late st Contact Info) Description 10/10/2024 10:00 AM EDT Office Visit [facility] MED & PEDS 505 [place] [address] Felton Lerma MD 505 [place] [address] 10/17/2024 11:00 AM EDT Office Visit [address] [address] Karon Dickson ANP [address] [place] [address] 11/10/2024 1:00 PM EDT Office Visit [address] [address] Karon Dickson ANP [address] [place] [address] 12/27/2024 10:30 AM EDT Clinical Support [facility] MED & PEDS 505 [place] [address] Sol Lennon, ANCA 505 [place] [address] documented as of this encounter Visit Diagnoses Not on filedocumented in this encounter Additional Health Concerns Assessment Noted Time PHQ-9 Depression Total Score: 1 07/11/19 25 11:22 AM EST documented as of this encounter Care Teams Chopper Operator Relationship Specialty Start Date End Date Karon Dickson ANP [address] [place] [address] PCP - General Family Medicine 08/27/20 documented as of this encounter
--- OUTSIDE RECORDS SUMMARY | 2024-10-03 12:22 | XMS_ITS | Encounter Summary ---
Author Organization [employer] Address 75 [facility] 7t [place] [address] Care Team Providers Care Film Numberer Name Role Phone Karon Dickson Primary Care Provider [phone] Reason for Visit * Reason Onset Date Comments Appointment Request 03/22/2024 Encounter Details Date Type Department Care Team ([facility] Contact Info) Description 03/22/2024 Telephone [facility] MEDICINE 230 [place], [place] [phone] Karon Dickson ANP 230 [place] [address] Appointment Request Social History Tobacco Use Types [...] encounter Miscellaneous Notes * Telephone Encounter - Sriram Ruiz - 03/22/2024 1:46 PM EDT Tc from patient calling to cancel appt from 03/23 states has been having symptoms of Covid and is not feeling well patients child had COVID documented in this encounter Plan of Treatment Upcoming Encounters Date Type Department Care Team (Late st Contact Info) Description 10/10/2024 10:00 AM EDT Office Visit [facility] CHC MED & PEDS 505 [place] [address] Felton Lerma MD 505 [place] [address] 10/17/2024 11:00 AM EDT Office Visit [facility] MEDICINE 230 [place] [address] Karon Dickson, ANP 230 [place] [address] 11/10/2024 1:00 PM EDT Office Visit [facility] MEDICINE 230 [place] [address] Karon Dickson ANP 230 [place] [address] 12/27/2024 10:30 AM EDT Clinical Support [facility] CHC MED & PEDS 505 [place], [place] [phone] Sol Lennon, RN 505 [place] [address] documented as of this encounter Visit Diagnoses Not on filedocumented in this encounter Additional Health Concerns Assessment Noted Time PHQ-9 Depression Total Score: 0 06/24/20 23 2:47 PM EST documented as of this encounter Care Teams Film Numberer Relationship Specialty Start Date End Date Karon Dickson ANP [address] [place] [address] PCP - General Family Medicine 08/27/20 documented as of this encounter
--- OUTSIDE RECORDS SUMMARY | 2024-10-03 12:22 | XMS_ITS | Encounter Summary ---
Author Organization [employer] Address 75 [facility] 7t [place] [address] Care Team Providers Care Website Designer Name Role Phone Karon Dickson Primary Care Provider [phone] Reason for Visit * Reason Onset Date Comments MINING ANALYST 01/11/2024 Encounter Details Date Type Department Care Team ([facility] Contact Info) Description 01/11/2024 Telephone [facility] MEDICINE 230 [place], [place] [phone] Karon Dickson ANP 230 [place], [place] [phone] MINING ANALYST Social History Tobacco Use Types Packs/Day Years [...] EDT Travel History Travel Start Travel End [place] 08/18/2024 09/15/2024 [place] 08/26/2024 09/08/2024 documented as of this encounter Miscellaneous Notes * Telephone Encounter - [place] - 01/11/2024 11:15 AM EDT Tc from pt requesting to r/s appt for MINING ANALYST on 01/12/24 due to work schedule documented in this encounter Plan of Treatment Upcoming Encounters Date Type Department Care Team (Late st Contact Info) Description 10/10/2024 10:00 AM EDT Office Visit [facility] CHC MED & PEDS 505 [place] [address] Felton Lerma MD 505 [place] [address] 10/17/2024 11:00 AM EDT Office Visit [facility] MEDICINE 230 [place] [address] Karon Dickson, ANP 230 [place] [address] 11/10/2024 1:00 PM EDT Office Visit [facility] MEDICINE 230 [place] [address] Karon Dickson ANP 230 [place] [address] 12/27/2024 10:30 AM EDT Clinical Support [facility] CHC MED & PEDS 505 [place], [place] [phone] Sol Lennon, RN 505 [place] [address] documented as of this encounter Visit Diagnoses Not on filedocumented in this encounter Additional Health Concerns Assessment Noted Time PHQ-9 Depression Total Score: 0 06/24/20 23 2:47 PM EST documented as of this encounter Care Teams Website Designer Relationship Specialty Start Date End Date Karon Dickson ANP [address] [place] [address] PCP - General Family Medicine 08/27/20 documented as of this encounter
--- OUTSIDE RECORDS SUMMARY | 2024-10-03 12:22 | XMS_ITS | Encounter Summary ---
Author Organization [employer] Address 75 [facility] 7t [place] [address] Care Team Providers Care Trouble Clerk Name Role Phone Karon Dickson Primary Care Provider Reason for Visit * Reason Onset Date Comments Med Refill 02/11/2024 Encounter Details Date Type Department Care Team ([facility] st Contact Info) Description 02/11/2024 Refill [facility] MEDICINE 230 [place], [place] [phone] Karon Dickson ANP 230 [place] [address] Gastroesophageal reflux disease, unspecified whether esophagitis present [...] the past 12 months, has t he [employer], gas, oil or water company threatened to [...] Description 10/10/2024 10:00 AM EDT Office Visit [facility] CHC MED & PEDS [address] [place] [address] Felton Lerma MD 505 [place] [address] 10/17/2024 11:00 AM EDT Office Visit [facility] MEDICINE [address] [place] [address] Karon Dikcson ANP [address] [place] [address] 11/10/2024 1:00 PM EDT Office Visit [address] [address] Karon Dickson ANP 230 [place] [address] 12/27/2024 10:30 AM EDT Clinical Support [facility] MED & PEDS 505 [place] [address] Sol Lennon, RN 505 [place] [address] documented as of this encounter Visit Diagnoses Diagnosis Gastroesophageal reflux disease, unspecified whether esophagitis present documented in this encounter Additional Health Concerns Assessment Noted Time PHQ-9 Depression Total Score: 0 06/24/20 23 2:47 PM EST documented as of this encounter Care Teams Trouble Clerk Relationship Specialty Start Date End Date Karon Dickson ANP 230 [place] [address] PCP - General Family Medicine 08/27/20 documented as of this encounter
--- OUTSIDE RECORDS SUMMARY | 2024-10-03 12:22 | XMS_ITS | Encounter Summary ---
Author Organization [facility] Address 75 [facility] 7t [place] [address] Care Team Providers Care Special Programs Director Name Role Phone Karon Dickson Primary Care Provider [phone] Reason for Visit * Reason Onset Date Comments Med Refill 02/01/2023 Encounter Details Date Type Department Care Team (Late st Contact Info) Description 02/01/2023 Refill [facility] MEDICINE 230 [place] [address] Karon Dickson ANP 230 [place] [address] Impingement syndrome of right shoulder region Social History Tobacco Use Types Packs/Day Years Used Date Smoking Tobacco: Former Cigarettes Smokeless Tobacco: Never Alcohol Use Standard Drinks/Week Comments Not Currently 0 (1 standard drink = 0.6 oz pur e alcohol) PHQ-2 Answer Date Recorded Patient Health Questionnaire-2 Score 0 11/24/2022 Depression Answer Date Recorded Patient Health Questionnaire-2 [...] Description 10/10/2024 10:00 AM EDT Office Visit [facility] MED & PEDS 505 [place] [address] Felton Lerma MD 505 [place] [address] 10/17/2024 11:00 AM EDT Office Visit [address] [address] Karon Dickson ANP [address] [place] [address] 11/10/2024 1:00 PM EDT Office Visit [address] [address] Karon Dickson ANP [address] [place] [address] 12/27/2024 10:30 AM EDT Clinical Support [facility] MED & PEDS 505 [place] [address] Sol Lennon, ANCA 505 [place] [address] documented as of this encounter Visit Diagnoses Diagnosis Impingement syndrome of right shoulder region documented in this encounter Care Teams Special Programs Director Relationship Specialty Start Date End Date Karon Dickson ANP [address] [place] [address] PCP - General Family Medicine 08/27/20 documented as of this encounter
--- OUTSIDE RECORDS SUMMARY | 2024-10-03 12:22 | XMS_ITS | Encounter Summary ---
Author Organization [employer] Address 75 [facility] 7t [place] [address] Care Team Providers Care Billing Manager Name Role Phone Karon Dickson Primary Care Provider [phone] Reason for Visit * Reason Comments Med Refill Encounter Details Date Type Department Care Team ([facility] st Contact Info) Description 12/07/2022 Refill [facility] MEDICINE 230 [place], [place] [phone] Karon Dickson ANP 230 [place] [address] Impingement syndrome of right shoulder region Social [...] EDT Travel History Travel Start Travel End [place] 08/18/2024 09/15/2024 [place] 08/26/2024 09/08/2024 COVID-19 Exposure Response Date Recorded In the last 10 days, have yo u been in contact with someone who was confirmed or suspected to have Coronavirus/COVID-19? No / Unsure 11/24/2022 10:22 AM EDT documented as of this encounter Miscellaneous Notes * Telephone Encounter - Cindy Anderson RN - 12/07/2022 11:48 AM EDT Refused. Pcp sent med to cover until appt on Wednesday. documented in this encounter Plan of Treatment Upcoming Encounters Date Type Department Care Team (Late st Contact Info) Description 10/10/2024 10:00 AM EDT Office Visit [facility] MED & PEDS 505 [place] [address] Felton Lerma MD 505 [place] [address] 10/17/2024 11:00 AM EDT Office Visit [address] [address] Karon Dickson ANP [address] [place] [address] 11/10/2024 1:00 PM EDT Office Visit [address] [address] Karon Dickson ANP [address] [place] [address] 12/27/2024 10:30 AM EDT Clinical Support [facility] MED & PEDS 505 [place] [address] Sol Lennon RN 505 [place] [address] documented as of this encounter Visit Diagnoses Diagnosis Impingement syndrome of right shoulder region documented in this encounter Care Teams Billing Manager Relationship Specialty Start Date End Date Karon Dickson ANP [address] [place] [address] PCP - General Family Medicine 08/27/20 documented as of this encounter
--- OUTSIDE RECORDS SUMMARY | 2024-10-03 12:22 | XMS_ITS | Encounter Summary ---
Author Organization [employer] Address 75 [facility] 7t [place] [address] Care Team Providers Care Financial Professional Name Role Phone Karon Dickson ROBERT Primary Care Provider [phone] Reason for Visit * Reason Comments Med Refill Encounter Details Date Type Department Care Team ([facility] Contact Info) Description 02/11/2024 Refill [facility] MED & PEDS 505 [place] [address] Allison Martinez MD 230 [place] [address] Impingement syndrome of right shoulder region Social [...] the past 12 months, has t he [employer], gas, oil or water company threatened to [...] EDT Travel History Travel Start Travel End [place] 08/18/2024 09/15/2024 [place] 08/26/2024 09/08/2024 documented as of this encounter Plan of Treatment Upcoming Encounters Date Type Department Care Team (Late st Contact Info) Description 10/10/2024 10:00 AM EDT Office Visit [facility] MED [facility] PEDS 505 [place] [address] Feltno Lerma MD 505 [place] [address] 10/17/2024 11:00 AM EDT Office Visit [facility] MEDICINE [address] [place] [address] Karon Dickson ANP [address] [place] [address] 11/10/2024 1:00 PM EDT Office Visit [address] [address] Karon Dickson ANP [address] [place] [address] 12/27/2024 10:30 AM EDT Clinical Support [facility] MED & PEDS 505 [place] [address] Sol Lennon, RN 505 [place] [address] documented as of this encounter Visit Diagnoses Diagnosis Impingement syndrome of right shoulder region documented in this encounter Additional Health Concerns Assessment Noted Time PHQ-9 Depression Total Score: 0 06/24/20 23 2:47 PM EST documented as of this encounter Care Teams Financial Professional Relationship Specialty Start Date End Date Karon Dickson ANP 230 [place] [address] PCP - General Family Medicine 08/27/20 documented as of this encounter
--- OUTSIDE RECORDS SUMMARY | 2024-10-03 12:22 | XMS_ITS | Encounter Summary ---
Author Organization [employer] Address [address] [facility] 7t [place] [address] Care Team Providers Care Inside Sales Manager Name Role Phone Karon Dickson Primary Care Provider [phone] Reason for Visit * Reason Comments Med Refill Encounter Details Date Type Department Care Team (Late st Contact Info) Description 09/15/2022 Refill [facility] 230 [place], [place] [phone] Osvaldo Proctor MD 230 [place] [address] Impingement syndrome of right shoulder region Social [...] End [place] 08/18/2024 09/15/2024 [place] 08/26/2024 09/08/2024 COVID-19 Exposure Response Date Recorded In the last 10 days, have yo u been in contact with someone who was confirmed or suspected to have Coronavirus/COVID-19? No / Unsure 08/18/2022 2:24 PM EST documented as of this encounter Plan of Treatment Upcoming Encounters Date Type Department Care Team (Late Contact Info) Description 10/10/2024 10:00 AM EDT Office Visit [facility] 505 [place] [address] Felton Lerma MD 505 [place] [address] 10/17/2024 11:00 AM EDT Office Visit [address] [address] Karon Dickson ANP [address] [place] [address] 11/10/2024 1:00 PM EDT Office Visit [address] [address] Karon Dickson ANP [address] [place] [address] 12/27/2024 10:30 AM EDT Clinical Support [facility] 505 [place] [address] Sol Lennon RN 505 [place] [address] documented as of this encounter Visit Diagnoses Diagnosis Impingement syndrome of right shoulder region documented in this encounter Care Teams Inside Sales Manager Relationship Specialty Start Date End Date Karon Dickson ANP [address] [place] [address] PCP - General Family Medicine 08/27/20 documented as of this encounter
--- OUTSIDE RECORDS SUMMARY | 2024-10-03 12:22 | XMS_ITS | Encounter Summary ---
Author Organization [employer] Address 75 [facility] 7t [place] [address] Care Team Providers Care Band Edger Name Role Phone Karon Dickson Primary Care Provider [phone] Encounter Details Date Type Department Care Team (Late Contact Info) Description 07/10/2022 Orders Only [facility] MEDICINE 230 [place] [address] Genoveva Jarrett RN Impingement syndrome of right shoulder region (Primary Dx) Social History Tobacco Use Types Packs/Day Years Used Date Smoking Tobacco: Never Assessed Sex and Gender Information Value Date Recorded Sex Assigned at Male 04/27/2022 10:30 AM EDT Legal Sex Male 10:30 AM EDT Gender Identity Male 04/27/2022 10:30 AM EDT Sexual Orientation Straight 04/27/2022 10 :30 AM EDT Travel History Travel Start Travel End [place] 08/18/2024 09/15/2024 [place] 08/26/2024 09/08/2024 COVID-19 Exposure Response Date Recorded In the last 10 days, have yo u been in contact with someone who was confirmed or suspected to have Coronavirus/COVID-19? No / Unsure 07/09/2022 3:28 PM EST documented as of this encounter Plan of Treatment Upcoming Encounters Date Type Department Care Team (Late Contact Info) Description 10/10/2024 10:00 AM EDT Office Visit [facility] 505 [place], [place] [phone] Felton Lerma MD 505 [place], [place] [phone] 10/17/2024 11:00 AM EDT Office Visit [facility] 230 [place] [address] Karon Dickson ANP 230 [place] [address] 11/10/2024 1:00 PM EDT Office Visit [facility] 230 [place] [address] Karon Dickson ANP 230 [place] [address] 12/27/2024 10:30 AM EDT Clinical Support [facility] 505 [place] [address] Sol Lennon, RN 505 [place] [address] documented as of this encounter Visit Diagnoses Diagnosis Impingement syndrome of right shoulder region- Primary documented in this encounter Care Teams Band Edger Relationship Specialty Start Date End Date Karon Dickson ANP [address] [place] [address] PCP - General Family Medicine 08/27/20 documented as of this encounter
--- OUTSIDE RECORDS SUMMARY | 2024-10-03 12:22 | XMS_ITS | Encounter Summary ---
Author Organization [employer] Address 75 [facility] 7t [place] [address] Care Team Providers Care Field Services Analyst Name Role Phone Karon Dickson Primary Care Provider [phone] Reason for Visit * Reason Comments Med Refill Encounter Details Date Type Department Care Team ([facility] st Contact Info) Description 07/21/2022 Refill [facility] 230 [place], [place] [phone] Karon Dickson ANP 230 [place] [address] Impingement syndrome of right shoulder region Social [...] [place] 08/18/2024 09/15/2024 [place] 08/26/2024 09/08/2024 COVID-19 Exposure Response Date Recorded In the last 10 days, have yo u been in contact with someone who was confirmed or suspected to have Coronavirus/COVID-19? No / Unsure 07/09/2022 3:28 PM EST documented as of this encounter Miscellaneous Notes * Telephone Encounter - Genoveva Jarrett RN - 07/24/2022 11:29 AM EST duplicate documented in this encounter Plan of Treatment Upcoming Encounters Date Type Department Care Team (Late st Contact Info) Description 10/10/2024 10:00 AM EDT Office Visit [facility] MED & PEDS 505 [place] [address] Felton Lerma MD 505 [place] [address] 10/17/2024 11:00 AM EDT Office Visit [address] [address] Karon Dickson ANP [address] [place] [address] 11/10/2024 1:00 PM EDT Office Visit [address] [address] Karon Dickson ANP [address] [place] [address] 12/27/2024 10:30 AM EDT Clinical Support [facility] MED & PEDS 505 [place] [address] Sol Lennon RN 505 [place] [address] documented as of this encounter Visit Diagnoses Diagnosis Impingement syndrome of right shoulder region documented in this encounter Care Teams Field Services Analyst Relationship Specialty Start Date End Date Karon Dickson ANP [address] [place] [address] PCP - General Family Medicine 08/27/20 documented as of this encounter
--- OUTSIDE RECORDS SUMMARY | 2024-10-03 12:22 | XMS_ITS | Encounter Summary ---
Author Organization [employer] Address 75 [facility] 7t [place] [address] Care Team Providers Care Senior Product Consultant Name Role Phone Karon Dickson Primary Care Provider [phone] Reason for Visit * Reason Onset Date Comments Med Refill 09/15/2022 Encounter Details Date Type Department Care Team ([facility] st Contact Info) Description 09/15/2022 Telephone [facility] MEDICINE 230 [place], [place] [phone] Karon Dickson ANP 230 [place] [address] Med Refill Social History Tobacco Use Types Packs/Day Years Used Date Smoking Tobacco: Never Assessed Sex and Gender Information Value Date Recorded Sex Assigned at Male 04/27/2022 10:30 AM EDT Legal Sex Male 10:30 AM EDT Gender Identity Male 04/27/2022 10:30 AM EDT Sexual Orientation Straight 04/27/2022 10 :30 AM EDT Travel History Travel Start Travel End [place] 08/18/2024 09/15/2024 [place] 08/26/2024 09/08/2024 COVID-19 Exposure Response Date Recorded In the last 10 days, have yo u been in contact with someone who was confirmed or suspected to have Coronavirus/COVID-19? No / Unsure 08/18/2022 2:24 PM EST documented as of this encounter Miscellaneous Notes * Telephone Encounter - Mona Annika - 09/15/2022 12:41 PM EDT Tc from pt requesting med refill for medication traMADol (Ultram) 50 MG tablet. documented in this encounter Plan of Treatment Upcoming Encounters Date Type Department Care Team (Late st Contact Info) Description 10/10/2024 10:00 AM EDT Office Visit [facility] 505 [place] [address] Felton Lerma MD 505 [place] [address] 10/17/2024 11:00 AM EDT Office Visit [address] [address] Karon Dickson ANP [address] [place] [address] 11/10/2024 1:00 PM EDT Office Visit [address] [address] Karon Dickson ANP [address] [place] [address] 12/27/2024 10:30 AM EDT Clinical Support [facility] 505 [place] [address] Sol Lennon RN 505 [place] [address] documented as of this encounter Visit Diagnoses Not on filedocumented in this encounter Care Teams Senior Product Consultant Relationship Specialty Start Date End Date Karon Dicskon ANP [address] [place] [address] PCP - General Family Medicine 08/27/20 documented as of this encounter
--- OUTSIDE RECORDS SUMMARY | 2024-10-03 12:22 | XMS_ITS | Encounter Summary ---
Author Organization [employer] Address 75 [facility] 7t [place] [address] Care Team Providers Care Senior Cyber Intelligence Analyst Name Role Phone Karon Dickson Primary Care Provider [phone] Reason for Visit * Reason Onset Date Comments triage 09/16/2022 Encounter Details Date Type Department Care Team ([facility] Contact Info) Description 09/16/2022 Telephone [facility] MEDICINE 230 [place], [place] [phone] Karon Dickson ANP 230 [place] [address] triage Social History Tobacco Use Types Packs/Day Years Used Date Smoking Tobacco: Never Assessed Sex and Gender Information Value Date Recorded Sex Assigned at Male 04/27/2022 10:30 AM EDT Legal Sex Male 10:30 AM EDT Gender Identity Male 04/27/2022 10:30 AM EDT Sexual Orientation Straight 04/27/2022 10 :30 AM EDT Travel History Travel Start Travel End [place] 08/18/2024 09/15/2024 [place] 08/26/2024 09/08/2024 COVID-19 Exposure Response Date Recorded In the last 10 days, have yo u been in contact with someone who was confirmed or suspected to have Coronavirus/COVID-19? No / Unsure 08/18/2022 2:24 PM EST documented as of this encounter Miscellaneous Notes * Telephone Encounter - Genoveva Jarrett RN - 09/23/2022 3:32 PM EDT Per [facility] , pt filled 30 day supply of Tramadol on 09/16/22. * Telephone Encounter - Lashanda Dong RN - 09/16/2022 2:06 PM EDT Called pt. Spouse ( Ca) answered phone. Pt. Is requesting a refill on Tramadol for right shoulder pain. Pt. Had a shoulder injection 2-3 months ago with no relief. Pt. Shoulder painful and has weakness and numbness that runs down entire arm in to hands and fingers. Pt. Made appt for 09/24/22 at2pm with PCP but needs refill on Tramadol as it is due for refill tomorrow. No fever. No other sx. Will send request for Tramadol to PCP. Protocol Used: Shoulder Pain (Adult) Protocol-Based Disposition: See in Office or Video Visit Today or Tomorrow- Schedule does not allowappts. For pt. After 2pm. Appt. Scheduled for 09/24/22 at 2pm. Video visit not offered Positive Triage Questions: * Patient wants to be seen * Shoulder pain is a chronic symptom (recurrent or ongoing AND present > 4 weeks) * All higher-acuity triage questions were negative Care Advice Discussed: * Reassurance and Education - Shoulder Pain * Pain Medicines * Pain Medicines - Extra Notes and Warnings * Reasons To Call Back * Telephone Encounter - Mona Roblero - 09/16/2022 11:32 AM EDT Symptom: Arm Pain - Not From Injury Outcome: Schedule an appointment to be seen within 24 hours Reason: No high acuity concerns reported by caller The caller accepted this outcome Pt states got arm pain injection and he feel like pain has gotten worse . documented in this encounter Plan of Treatment Upcoming Encounters Date Type Department Care Team (Late st Contact Info) Description 10/10/2024 10:00 AM EDT Office Visit [facility] MED & PEDS 505 [place] [address] Felton Lerma MD 505 [place] [address] 10/17/2024 11:00 AM EDT Office Visit [address] [address] Karon Dickson ANP [address] [place] [address] 11/10/2024 1:00 PM EDT Office Visit [address] [address] Karon Dickson ANP [address] [place] [address] 12/27/2024 10:30 AM EDT Clinical Support [facility]S 505 [place] [address] Sol Lennon RN 505 [place], [place] [phone] documented as of this encounter Visit Diagnoses Diagnosis Impingement syndrome of right shoulder region documented in this encounter Care Teams Senior Cyber Intelligence Analyst Relationship Specialty Start Date End Date Karon Dickson ANP [address] [place] [address] PCP - General Family Medicine 08/27/20 documented as of this encounter
--- OUTSIDE RECORDS SUMMARY | 2024-10-03 12:22 | XMS_ITS | Encounter Summary ---
Author Organization [employer] Address 75 [facility] 7t [place] [address] Care Team Providers Care Pulley Mortiser Operator Name Role Phone Karon Dickson Primary Care Provider [phone] Reason for Visit * Reason Comments Med Refill Encounter Details Date Type Department Care Team (Late st Contact Info) Description 01/04/2023 Refill [facility] MED[facility] 230 [place] [address] Karon Dickson ANP 230 [place] [address] Impingement syndrome of right shoulder region Social [...] EDT Travel History Travel Start Travel End [place] 08/18/2024 09/15/2024 [place] 08/26/2024 09/08/2024 documented as of this encounter Plan of Treatment Upcoming Encounters Date Type Department Care Team (Late st Contact Info) Description 10/10/2024 10:00 AM EDT Office Visit [facility] [address] [place] [address] Felton Lerma MD 505 [place] [address] 10/17/2024 11:00 AM EDT Office Visit [address] [address] Karon Dickson ANP [address] [place] [address] 11/10/2024 1:00 PM EDT Office Visit [address] [address] Karon Dickson ANP [address] [place] [address] 12/27/2024 10:30 AM EDT Clinical Support [facility] MED & PEDS 505 [place] [address] Sol Lennon RN 505 [place] [address] documented as of this encounter Visit Diagnoses Diagnosis Impingement syndrome of right shoulder region documented in this encounter Care Teams Pulley Mortiser Operator Relationship Specialty Start Date End Date Karon Dickson ANP [address] [place] [address] PCP - General Family Medicine 08/27/20 documented as of this encounter
--- OUTSIDE RECORDS SUMMARY | 2024-10-03 12:22 | XMS_ITS | Encounter Summary ---
Author Organization [employer] Address 75 [facility] 7t [place] [address] Care Team Providers Care Community Relations Representative Name Role Phone Karon Dickson Primary Care Provider [phone] Reason for Visit * Reason Onset Date Comments Med Refill 05/30/2024 Encounter Details Date Type Department Care Team ([facility] st Contact Info) Description 05/30/2024 Refill [facility]S [address] [place], [place] [phone] Karon Dickson ANP 230 [place] [address] Impingement syndrome of right shoulder region Social [...] the past 12 months, has t he [employer] gas, oil or water company threatened to [...] Description 10/10/2024 10:00 AM EDT Office Visit [facility] 505 [place] [address] Felton Lerma MD 505 [place] [address] 10/17/2024 11:00 AM EDT Office Visit [facility] [address] [place] [address] Karon Dickson ANP [address] [place] [address] 11/10/2024 1:00 PM EDT Office Visit [address] [address] Karon Dickson ANP 230 [place] [address] 12/27/2024 10:30 AM EDT Clinical Support [facility] 505 [place] [address] Sol Lennon, RN 505 [place] [address] documented as of this encounter Visit Diagnoses Diagnosis Impingement syndrome of right shoulder region documented in this encounter Additional Health Concerns Assessment Noted Time PHQ-9 Depression Total Score: 0 06/24/20 23 2:47 PM EST documented as of this encounter Care Teams Community Relations Representative Relationship Specialty Start Date End Date Karon Dickson ANP 230 [place] [address] PCP - General Family Medicine 08/27/20 documented as of this encounter
--- OUTSIDE RECORDS SUMMARY | 2024-10-03 12:22 | XMS_ITS | Encounter Summary ---
Author Organization [employer] Address 75 [facility] 7t [place] [address] Care Team Providers Care Editorial Project Manager Name Role Phone Karon Dickson Primary Care Provider [phone] Reason for Visit * Reason Onset Date Comments Med Refill 01/04/2023 Encounter Details Date Type Department Care Team ([facility] st Contact Info) Description 01/04/2023 Refill [facility] MEDICINE 230 [place] [address] Karon Dickson ANP 230 [place] [address] Impingement syndrome of right shoulder region Social [...] EDT Travel History Travel Start Travel End [place] 08/18/2024 09/15/2024 [place] 08/26/2024 09/08/2024 documented as of this encounter Miscellaneous Notes * Telephone Encounter - Lina Roberts - 01/06/2023 10:06 AM EDT Tc from patient requesting med refill script for tramadol 50 mg to be re sent to pharmacy, due to system being down at the pharmacy and script now being invalid. Patient is out of medication. documented in this encounter Plan of Treatment Upcoming Encounters Date Type Department Care Team (Late st Contact Info) Description 10/10/2024 10:00 AM EDT Office Visit [facility] MED & PEDS 505 [place] [address] Felton Lerma MD 505 [place] [address] 10/17/2024 11:00 AM EDT Office Visit [address] [address] aKron Dickson ANP [address] [place] [address] 11/10/2024 1:00 PM EDT Office Visit [address] [address] Karon Dickson ANP [address] [place] [address] 12/27/2024 10:30 AM EDT Clinical Support [facility] MED [facility] PEDS 505 [place] [address] Sol Lennon RN 505 [place] [address] documented as of this encounter Visit Diagnoses Diagnosis Impingement syndrome of right shoulder region documented in this encounter Care Teams Editorial Project Manager Relationship Specialty Start Date End Date Karon Dickson ANP [address] [place] [address] PCP - General Family Medicine 08/27/20 documented as of this encounter
--- OUTSIDE RECORDS SUMMARY | 2024-10-03 12:23 | XMS_ITS | Encounter Summary ---
Author Organization [employer] Address 75 [facility] 7t [place] [address] Care Team Providers Care Social Media Executive Name Role Phone Karon Dickson Primary Care Provider Reason for Visit * Reason Onset Date Comments Med Refill 02/01/2023 Encounter Details Date Type Department Care Team (Late st Contact Info) Description 02/01/2023 Refill [facility] MEDICINE 230 [place] [address] Karon Dickson ANP 230 [place] [address] Impingement syndrome of right shoulder region Social [...] [facility] 505 [place] [address] Felton Lerma MD 505 [place] [address] 10/17/2024 11:00 AM EDT Office Visit [address] [address] Karon Dickson ANP [address] [place] [address] 11/10/2024 1:00 PM EDT Office Visit [address] [address] Karon Dickson ANP [address] [place] [address] 12/27/2024 10:30 AM EDT Clinical Support [facility] MED & PEDS 505 [place] [address] Sol Lennon, ANCA 505 [place] [address] documented as of this encounter Visit Diagnoses Diagnosis Impingement syndrome of right shoulder region documented in this encounter Care Teams Social Media Executive Relationship Specialty Start Date End Date Karon Dickson ANP [address] [place] [address] PCP - General Family Medicine 08/27/20 documented as of this encounter
== END 2024-10-03 11:20 | disposition home or self-care (01) ==
LOC: HO.HOS 10:24
PROVIDERS: PCP Nurse Practitioner Primary Care; Visit Provider Orthopaedic Surgery
DX: M67.432 Ganglion, left wrist (principal)
CPT/HCPCS: 99024

== ENCOUNTER → 2024-10-03 10:24 | Outpatient (BNVA) | payer MEDICAID, SELFPAY | PROVIDERS: PCP Nurse Practitioner Primary Care; Visit Provider Orthopaedic Surgery | DX: Z01.818 Encounter for other preprocedural examination (principal); M67.432 Ganglion, left wrist | CPT/HCPCS: 99212 ==

== ENCOUNTER 2024-10-05 06:47 | Day surgery (SDC) | payer MEDICAID, SELFPAY ==
[2024-10-03 08:00] VITALS: BMI 34.7
--- NOTE | 2024-10-03 12:19 | HO.ANESPROP2 ---
HPI - Anesthesia Eval Consult details Narrative: 38yo M for Left Volar Wrist Excision Ganglion PMFSH Active Problems Active Problems: All Active Problems Ganglion cyst of volar aspect of left wrist (Acute) Past Medical History Medical History (Updated 10/03/24 @ 07:59 by Thania Mark RN) HTN (hypertension) Surgical History Surgical History (Updated 07/20/24 @ 10:40 by SHIRA Devine) S/P cubital tunnel release Social History Social History (Updated 07/20/24 @ 10:40 by SHIRA Devine) Current occupational status: employed Current occupation: chofer/ rt hand Meds Allergies Allergy/AdvReac Type Severity Reaction Status Date / Time No Known Allergies Allergy Unverified 07/20/24 10:36 [No Known Allergies*] Home Medications ?Medication ?Instructions ?Recorded ?Confirmed ?Last Taken ?Type cyclobenzaprine 5 mg tablet 5 - 10 mg PO BEDTIME PRN 07/20/24 Unknown History diclofenac potassium 50 mg tablet 50 mg PO BID 07/20/24 Unknown History famotidine 20 mg tablet 20 mg PO BID PRN acid reflux 07/20/24 Unknown History olmesartan 5 mg tablet 5 mg PO DAILY 07/20/24 Unknown History tramadol 50 mg tablet mg PO 07/20/24 Unknown History vitamin B complex-folic acid 0.4 1 tab PO DAILY 07/20/24 Unknown History mg tablet Exam Height,Weight and Vital Signs: Height 6 ft 3 in Weight 126.099 kg Assessment and Plan Assessment Anesthesia Assessment: Chart Reviewed
[2024-10-05 07:06] VITALS: BMI 35.2
[2024-10-05 07:18] VITALS: BP 124/82; PULSE 84; RESP 16; TEMP 36.5; O2SAT 97
[2024-10-05] MEDS: Lactated Ringers 1,000 ML 100 ML IVCONT (07:31)
--- NOTE | 2024-10-05 08:20 | P.CONAN_ITS ---
[facility] Active Problems Active Problems: All Active Problems Ganglion cyst of volar aspect of left wrist (Acute) Past Medical History Medical History HTN (hypertension) Functional capacity: independent ambulation Family History Family history of problems with anesthesia: No Surgical History Surgical History S/P cubital tunnel release History of Problems with Anesthesia: No Social History Social History Patient Tobacco Use Status: Never used Tobacco Use of substances other than those prescribed or required for medical reasons: No Are you DNR?: No Advance Directives: No Advance Directives Information Provided: Yes Poor oral hygiene: No Current occupational status: employed Current occupation: chofer/ rt hand Meds Allergies Allergy/AdvReac Type Severity Reaction Status Date / Time No Known Allergies Allergy Unverified 07/20/24 10:36 [No Known Allergies*] Active Medications: Current Medications Lactated Ringer's (Lr) 1,000 mls @ 100 mls/hr IVCONT .Q10H MAGUI Last Admin: 10/05/24 07:31 Dose: 100 mls/hr Home Medications ?Medication ?Instructions ?Recorded ?Confirmed ?Last Taken ?Type cyclobenzaprine 5 mg tablet 5 - 10 mg PO BEDTIME PRN 07/20/24 Unknown History diclofenac potassium 50 mg tablet 50 mg PO BID 07/20/24 Unknown History famotidine 20 mg tablet 20 mg PO BID PRN acid reflux 07/20/24 Unknown History olmesartan 5 mg tablet 5 mg PO DAILY 07/20/24 10/05/24 10/05/24 History tramadol 50 mg tablet mg PO 07/20/24 Unknown History vitamin B complex-folic acid 0.4 1 tab PO DAILY 07/20/24 Unknown History mg tablet Exam Height,Weight and Vital Signs: Height 6 ft 3 in Weight 127.6 kg Last Vital Signs Temp 97.7 F 10/05/24 07:18 Pulse 84 10/05/24 07:18 Resp 16 10/05/24 07:18 BP 124/82 10/05/24 07:18 Pulse Ox 97 10/05/24 07:18 O2 Del Method Room Air 10/05/24 07:18 Airway Mallampati Class: III TM Dist: >3cm Neck ROM: Full Heart: RRR Lungs: CTA Assessment and Plan Assessment Anesthesia Assessment: Anesthesia Plan Discussed and Chart Reviewed Final Anesthetic Review Family History of Problems with Anesthesia: No History of Problems with Anesthesia: No NPO: Yes ASA Class: II Final Preanesthetic Review: Meds/Allgs Chart Reviewed, Consent Obtained/Reviewed and Anes Risks/Benef Reviewed Patient Risk: Low Procedure Risk: Low Anesthetic Plan Anesthetic Plan: GA Disposition: Standard PACU
--- NOTE | 2024-10-05 08:27 | HO.ANESPROP2 ---
[facility] Active Problems Active Problems: All Active Problems Ganglion cyst of volar aspect of left wrist (Acute) Past Medical History Medical History HTN (hypertension) Functional capacity: independent ambulation Family History Family history of problems with anesthesia: No Surgical History Surgical History S/P cubital tunnel release History of Problems with Anesthesia: No Social History Social History Patient Tobacco Use Status: Never used Tobacco Use of substances other than those prescribed or required for medical reasons: No Are you DNR?: No Advance Directives: No Advance Directives Information Provided: Yes Poor oral hygiene: No Current occupational status: employed Current occupation: chofer/ rt hand Meds Allergies Allergy/AdvReac Type Severity Reaction Status Date / Time No Known Allergies Allergy Unverified 07/20/24 10:36 [No Known Allergies*] Active Medications: Current Medications Lactated Ringer's (Lr) 1,000 mls @ 100 mls/hr IVCONT .Q10H MAGUI Last Admin: 10/05/24 07:31 Dose: 100 mls/hr Home Medications ?Medication ?Instructions ?Recorded ?Confirmed ?Last Taken ?Type cyclobenzaprine 5 mg tablet 5 - 10 mg PO BEDTIME PRN 07/20/24 Unknown History diclofenac potassium 50 mg tablet 50 mg PO BID 07/20/24 Unknown History famotidine 20 mg tablet 20 mg PO BID PRN acid reflux 07/20/24 Unknown History olmesartan 5 mg tablet 5 mg PO DAILY 07/20/24 10/05/24 10/05/24 History tramadol 50 mg tablet mg PO 07/20/24 Unknown History vitamin B complex-folic acid 0.4 1 tab PO DAILY 07/20/24 Unknown History mg tablet Exam Height,Weight and Vital Signs: Height 6 ft 3 in Weight 127.6 kg Last Vital Signs Temp 97.7 F 10/05/24 07:18 Pulse 84 10/05/24 07:18 Resp 16 10/05/24 07:18 BP 124/82 10/05/24 07:18 Pulse Ox 97 10/05/24 07:18 O2 Del Method Room Air 10/05/24 07:18 Assessment and Plan Assessment Anesthesia Assessment: Anesthesia Plan Discussed and Chart Reviewed Final Anesthetic Review Family History of Problems with Anesthesia: No History of Problems with Anesthesia: No NPO: Yes ASA Class: III Final Preanesthetic Review: Meds/Allgs Chart Reviewed, Consent Obtained/Reviewed and Anes Risks/Benef Reviewed Patient Risk: Low Procedure Risk: Low Anesthetic Plan Anesthetic Plan: GA Disposition: Standard PACU
--- NOTE | 2024-10-05 09:17 | MHC.SHP ---
Pre-Procedural Eval Section A - 24 Hr Update-Section A only Date of Service: 10/05/24 The patient is an INPATIENT: No Changes since office visit: No Cold of Flu in the past 2 weeks, No New Medical Problems, No Changes in Medication and No Patient answered all questions The patient has been examined within 24 hours of the surgical procedure. The History & Physical has been completed within 30 days and I have reviewed it.: Yes Section B - Complete if H&P > 30 days Chief Complaint: Ganglion, left wrist Allergies: Allergies Allergy/AdvReac Type Severity Reaction Status Date / Time No Known Allergies Allergy Unverified 07/20/24 10:36 [No Known Allergies*] Plan I have reviewed the history and physical and performed a pertinent physical examination on my patient. No changes have occurred unless specified. Time Spent With Patient Time: Total time managing care of this patient today ____ minutes.
--- NOTE | 2024-10-05 09:17 | W.PM.OPN ---
Operative Note Operative Note Date of Service: 10/05/24 Narrative: Operative Note Narrative: Preop diagnosis: 1. Left Volar wrist ganglion Postop diagnosis: Same Procedure: 1. Left Volar wrist ganglion excision Surgeon: Simona Baltazar MD Cataloging Assistant: Francesco DUMONT Anesthesia: General Anesthesia Findings: Left volar wrist ganglion Implants: None Tourniquet time: 7 minutes EBL: 5.0 ml Specimen: Left Volar wrist ganglion Drains: None Complications: None Disposition: Brought to the recovery room in stable condition Plan: Follow-up in 10-14 days for wound check, suture removal and to check pathology Indications: The patient is 38 years old with a left volar wrist ganglion . The risks and benefits of operative treatment, including but not limited to risk of damage to blood vessels, nerves, tendons, infection, recurrence, persistent pain or numbness, incomplete resolution of preoperative symptoms, or need for further surgery were discussed with the patient and they wished to proceed with surgery. Procedure: Once consent was obtained patient was brought back to the operating suite and placed in the operating table in a supine position. . Perioperative antibiotics and anesthesia was administered by the anesthesia team. A tourniquet was applied to the proximal aspect of the left upper extremity and the limb was prepped and draped in a standard surgical fashion. The limb was elevated exsanguinated with Esmarch bandage and the tourniquet inflated to 250 mm of mercury for a total tourniquet time of 7 minutes. A 2 cm longitudinal incision was made centered over the patient's left volar wrist ganglion. The incision was made through the skin the subcutaneous tissues using a 15. Blade. Careful dissection was then made down to the level of the volar wrist ganglion using tenotomy scissors. The volar ganglion measured approximately 1.5 cm in diameter and was filled with clear viscous fluid consistent with a ganglion. It was located just proximal to the distal wrist crease. The ganglion was dissected free from the surrounding tissues in the adjacent FCR tendon using tenotomy and iris scissors. Care was taken to protect the superficial branch of the radial artery which crossed just distal to the ganglion. The stalk to the ganglion was then isolated and cauterized using bipolar electrocautery. The ganglion was then removed and placed on the back table to be sent for histopathology. It contained clear viscous fluid consistent with a ganglion. At this point the tourniquet was deflated and hemostasis obtained with a brief period of local pressure and bipolar electrocautery. The wound was copiously irrigated with normal saline. The skin edges were reapproximated with 5-0 nylon suture. The wound was infiltrated with some 1% lidocaine with epinephrine for postop pain control and a sterile dressing was applied. The patient appears to have tolerated the procedure well and with no complications. All digits were well vascularized conclusion of the case.
[2024-10-05 10:28] VITALS: BP 97/49; PULSE 108; RESP 14; TEMP 36.6; O2SAT 93
[2024-10-05 10:30] VITALS: BP 102/50; PULSE 103; RESP 16; O2SAT 93
[2024-10-05 10:35] VITALS: BP 99/66; PULSE 94; RESP 16; O2SAT 94
[2024-10-05 10:40] VITALS: BP 103/57; PULSE 94; RESP 16; O2SAT 94
[2024-10-05 10:55] VITALS: BP 115/72; PULSE 92; RESP 20; TEMP 36.2; O2SAT 95
--- NOTE | 2024-10-05 14:03 | HO.POSTANES ---
Post Anesthesia Evaluation Post Anesthesia Evaluation Date of Service: 10/05/24 Vital Signs: Vital Signs Temp Pulse Resp BP Pulse Ox O2 Del Method 10/05/24 10:55 97.1 F 92 20 115/72 95 Room Air 10/05/24 10:40 94 16 103/57 L 94 Room Air 10/05/24 10:35 94 16 99/66 94 Room Air 10/05/24 10:30 103 H 16 102/50 L 93 Room Air 10/05/24 10:28 98 F 108 H 14 97/49 L 93 Room Air 10/05/24 07:18 97.7 F 84 16 124/82 97 Room Air Anesthesia: General LMA Mental Status: Awake Pain Control: Satisfactory Nausea/Vomiting: None Hydration: Adequate Anesthesia-Related Issues: No Anes. Related Issues
== END 2024-10-05 12:14 | disposition home or self-care (01) ==
PROVIDERS: PCP Nurse Practitioner Primary Care; Visit Provider Orthopaedic Surgery
PROC: (CPT 25111; principal; 2024-10-05 09:20)
DX: M67.432 Ganglion, left wrist (principal); M25.532 Pain in left wrist; M25.522 Pain in left elbow; Z98.890 Other specified postprocedural states
CPT/HCPCS: 25111; 88304; J0131; J0690; J1100; J1885; J2003; J2250; J2405; J2704; J3010

== ENCOUNTER → 2024-10-05 06:47 | Outpatient (BNV) | payer MEDICAID, SELFPAY | PROVIDERS: PCP Nurse Practitioner Primary Care; Visit Provider Orthopaedic Surgery | DX: M67.432 Ganglion, left wrist (principal) | CPT/HCPCS: 25111 ==

== ENCOUNTER 2024-10-18 10:28 | Outpatient (AMB) | payer MEDICAID, SELFPAY ==
--- NOTE | 2024-10-18 10:49 | A.OFFVIS_ITS ---
Intake Visit Reasons: PO - LT VWG Exc 10/05/24 Intake Note: Shahram is a 38 year old right hand dominant male who presents today for a post operative visit s/p left volar wrist ganglion excision DOS: 10/05/[address] Simona Baltazar. He reports that he is doing well, has some mild pain with dorsi and dugan flexion.Sutures removed and Steris applied Allergies No Known Allergies [No Known Allergies*] Allergy (Unverified 07/20/24 10:36) HPI HPI PO - LT VWG Exc 10/05/24: Details: Shahram is a 38 year old right hand dominant male who presents today for a post operative visit s/p left volar wrist ganglion excision DOS: 10/05/[address] Simona Baltazar. He reports that he is doing well, has some mild pain with flexion and extension of the left wrist. Denies redness, swelling, discharge from the incision site. Sutures removed and Steris applied PFSH Medical History HTN (hypertension) Surgical History S/P cubital tunnel release Social History Patient Tobacco Use Status: Never used Tobacco Current occupational status: employed Current occupation: chofer/ rt hand Review of Systems Const All systems reviewed & are unremarkable except as noted in HPI and below Physical Exam Const General: cooperative, healthy appearing and no acute distress Orientation/consciousness: patient oriented x3 HEENT Head: Yes normocephalic and Yes atraumatic Eyes EOM: EOMs intact bilaterally Resp Effort & Inspection: normal respiratory effort and able to speak in complete sentences Cardio Jugular venous distension: no JVD Skin General skin exam: turgor normal Rashes: no rashes Neuro General: patient oriented x3 Extrem Other: Evaluation of Left Upper Extremity: The patient is alert, oriented, and in no acute distress Neuro: Median, Ulnar, Radial nerves motor and sensory intact and sensation is normal to the tips of all digits Vascular: Cap refill brisk ROM: He can make a fist and extend all his digits No locking or catching Skin: No lacerations or abrasions. General: No Ecchymosis. No evidence of infection. Incision site noted on the volar aspect of the right wrist where cyst was re moved, very minimal erythema consistent with suture irritation but no evidence of infection. Psych Appearance: grossly normal Affect: normal affect Attitude: cooperative Assessment & Plan Assessment & Plan (1) Ganglion cyst of volar aspect of left wrist: Code(s): M67.432 - Ganglion, left wrist Category: Medical Plan 1. Status post volar wrist ganglion excision of the left wrist DOS 10/05/2024 No evidence of cyst recurrence at this time Patient appears to be recovering well postoperatively Patient is educated about the typical recovery course At this time, patient was informed he will require no further acute follow-up with us, as he appears to be recovering quite well Patient was amenable to this plan Follow-up as needed Coding Level of Care Code Global (67710) Diagnoses Ganglion cyst of volar aspect of left wrist M67.432
--- OUTSIDE RECORDS SUMMARY | 2024-10-18 12:22 | XMS_ITS | Clinical Summary ---
Author Organization [employer] Address [address] [facility] [address] [place] [address] Care Team Providers Care Grass Farmer Name Role Phone Tiffany Swanson ROBERT Primary Care Provider [phone] Allergies No known active allergies Medications acetaminophen [...] ACID REFLUX 180 tablet 08/15/19 25 Active diclofenac (Cataflam) 50 MG tabletIndication [...] by mouth at bedtime for 28 days. Do not start before October 08, 2024. 56 tablet 10/09/19 25 025 Active ISOtretinoin (Accutane) 40 MG capsuleIndicatio ns:Inflammatory acne Take 1 capsule (40 mg) by mouth with breakfast and with evening meal. 60 capsule 10/14/19 25 Active Tirzepatide-Weig ht Management (Zepbound) 2.5 MG/0.5ML solution auto-injectorInd ications:Class 1 obesity with serious comorbidity and body mass index (BMI) of 34.0 to 34.9 in adult, unspecified obesity type Inject 0.5 mL (2.5 mg) under the skin 1 (one) time per week. 2 mL 10/18/19 25 Active lidocaine (Lidoderm) 5 % patch [...] CRAMP/SPASM 60 tablet 08/17/19 25 025 Discontinued ISOtretinoin (Amnesteem) 40 MG capsuleIndicatio ns:Inflammatory acne Take 1 capsule (40 mg) by mouth with breakfast and with evening meal. 60 capsule 08/21/19 25 025 Discontinued traMADol (Ultram) 50 MG tabletIndication s:Impingement syndrome of right shoulder region Take 2 tablets (100 mg) by mouth at bedtime for 7 days. 14 tablet 09/15/19 25 025 Discontinued(R eorder (will not trigger [...] 7 days. 14 tablet 10/03/19 25 025 Discontinued(R eorder (will not trigger notification to Pharmacy)) ISOtretinoin (Accutane) 40 MG capsuleIndicatio ns:Inflammatory acne TAKE 1 CAPSULE (40 MG) BY MOUTH WITH BREAKFAST AND WITH EVENING MEAL. 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 Cyst of epididymis 07/10/2016 Hypertriglyceridemia 04/20/2016 Inflammatory acne 04/03/2016 Anxiety 04/03/2016 Obesity 04/03/2016 Encounters Date Type Department Care Team Description 10/17/2024 11:00 AM EDT Office Visit [facility] [address] [place] [address] Tiffany Swanson ANP Essential hypertension (Primary Dx); Need for hepatitis B screening test; Impaired fasting glucose; Class 1 obesity with serious comorbidity and body mass index (BMI) of 34.0 to 34.9 in adult, unspecified obesity type 10/17/2024 Travel 10/13/2024 3:40 PM EDT Office Visit [facility] [address] [place] [address] Felton Lerma MD Inflammatory acne (Primary Dx) 10/13/2024 Orders Only [facility] [address] [place] [address] Felton Lerma MD Inflammatory acne 10/13/2024 Travel 10/11/2024 Telephone [facility] [address] [place] [address] Tiffany Swanson ANP reschedule derm appt 10/10/2024 Telephone [facility] [address] [place] [address] Tiffany Swanson ANP Appointment Request; chartprep 10/06/2024 Refill [facility] [address] [place] [phone] Tiffany Swanson ANP Impingement syndrome of right shoulder region 10/05/2024 Orders Only GENERIC EXTERNAL DATA DEPARTMENT Provider, Generic External Data 10/05/2024 Refill [facility] [address] [place] [address] Felton Lerma MD Inflammatory acne 10/04/2024 Telephone [facility] [address] [place] [address] Felton Lerma MD Med Refill 10/03/2024 Telephone [facility] [address] [place] [phone] Catrachita Richards [place] appt reschedule (Spoke to pt about the request from him to reshedule ,did explain the pros and cons ,pt agreed to com in 10/17,he has some concerns he stated that if his concerns get worse he will go to walk in.) 10/01/2024 Refill [facility] [address] [place] [address] Tiffany Swanson ANP Impingement syndrome of right shoulder region 09/26/2024 10:30 AM EDT Clinical Support [facility] [address] [place] [address] Sol Lennon, ANCA Low back pain due to bilateral sciatica (Primary Dx); detention (current) use of opiate analgesic; Long-term current use of opiate analgesic 09/26/2024 Telephone [facility] [address] [place] [address] Sol Lennon RN 09/26/2024 Travel 09/26/2024 Refill [facility] [address] [place] [address] Tiffany Swanson ANP Impingement syndrome of right shoulder region 09/20/2024 Refill [facility] [address] [place] [address] Devon Cifuentes MD Impingement syndrome of right shoulder region; Cervical radiculopathy 09/20/2024 Refill [facility] [address] [place] [address] Tiffany Swanson ANP Impingement syndrome of right shoulder region 09/20/2024 Refill [facility] [address] [place] [address] Funmi Anders MD 09/15/2024 Travel 09/15/2024 Telephone [facility] [address] [place] [address] Sol Lennon, ANCA divisional merchandising manager 09/14/2024 Refill [facility] [address] [place] [address] Kiana Stephenson MD Impingement syndrome of right shoulder region; Cervical radiculopathy 09/14/2024 Refill [facility] [address] [place] [address] Tiffany Swanson ANP Cervical radiculopathy 09/08/2024 Population Health Risk Score [facility] () Department [address] [place] [phone] Provider, Population Health Generic 08/21/2024 11:15 AM EST Office Visit [facility] [address] [place] [address] Felton Lerma MD Inflammatory acne 08/21/2024 Travel 08/18/2024 Refill [facility] [address] [place] [address] Tiffany Swanson ANP Impingement syndrome of right shoulder region 08/15/2024 Telephone [facility] [address] [place] [address] Tiffany Swanson ANP 08/15/2024 Refill [facility] [address] [place], [place] [phone] Tiffany Swanson ANP Cervical radiculopathy; Impingement syndrome of right shoulder region 08/13/2024 Refill [facility] [address] [place] [address] Tiffany Swanson ANP Gastroesophageal reflux disease, unspecified whether esophagitis present 08/07/2024 Refill [facility] [address] [place] [address] Felton Lerma MD Inflammatory acne 08/02/2024 Telephone [facility] [address] [place] [address] Lizz Granados [place] September07/21/2024 Refill [facility] [address] [place] [address] Tiffany Swanson ANP Impingement syndrome of right shoulder region from Last 3 Months Immunizations Name Administration Dates Next Due Influenza injectable quadriv alent IIV4 with preservative 04/04/2019 Influenza injectable quadriv alent preservative free 03/30/2022,04/27/2020,07/08/2016 Moderna Covid-19 Vaccine 12+ 12/28/2020,11/17/19 21 Moderna Covid-19 Vaccine 6+ Bivalent 08/18/2022 Tdap 07/08/2016 Family History Medical History Relation Name Comments Stroke Mother hemorrhagic Relation Name Status Comments Mother Social History Tobacco Use Types Packs/Day Years [...] Orientation Straight 04/27/2022 10 :30 AM EDT Last Filed Vital Signs Vital Sign Reading Time Taken Comments Blood Pressure 130/100 10/17/2024 11:18 AM EDT Pulse 94 10/17/2024 11:03 AM EDT Temperature 36.6 ??C (97.8 ??F) 10/13/2024 9:59 AM ED T Respiratory Rate 16 10/17/2024 11:03 AM EDT Oxygen Saturation 98% 10/13/2024 9:59 AM EDT Inhaled Oxygen Concentration - - Weight 127 kg (279 lb) 10/17/2024 11:03 AM EDT Height 190.5 cm (6' 3 ) 10/17/2024 11:03 AM EDT Body Mass Index 34.87 10/17/2024 11:03 AM EDT Plan of Treatment Upcoming Encounters Date Type Department Care Team (Late st Contact Info) Description 12/27/2024 10:30 AM EDT Clinical Support [facility] [address] [place] [address] Sol Lennon, RN [address] [place] [address] 01/22/2025 11:00 AM EDT Office Visit [facility] [address] [place] [address] Tiffany Swanson ANP [address] [place] [address] Health Maintenance Due Date Last Done Comments HIV Screening 1985 Family Planning (PISQ) 2001 Hepatitis C Screening 2004 Hepatitis B Vaccines (1 of 3 - 19+ 3-dose series) 2005 COVID-19 Vaccine (4 - 2023- season) 2024 08/18/2022, 12/28/2020, 11/16/2020 Influenza Vaccine (#1) 2024 , 04/27/2020, 04/04/2019, Additional history exists Alcohol/Substance Use Screening 07/11/2025 07/11/2024 Depression Screening 07/11/2025 07/11/2024, 07/11/19 SDOH Screening 08/21/2025 08/21/2024 Tobacco Screening 10/17/2025 10/17/2024 DTaP/Tdap/Td Vaccines (2 - Td or Tdap) 07/08/2026 07/08/2016 Lipid Panel 10/27/2028 10/28/2023, 0506/2022, 03/21/2021 Zoster Vaccines (1 of 2) 2036 [...] Procedure Name Priority Date/Time Associated Diagnosis Comments GROSS AND MICROSCOPIC LEVEL 3 Routine 10/05/2024 9:45 AM EDT POCT JANIA-14 URINE DRUG SCREEN Routine 09/26/2024 11:07 AM EDT detention (current) use of opiate analgesic Low back pain due to bilateral sciatica LIPID PANEL, STANDARD Routine 10/28/2023 3:28 PM EDT Hypertriglyceridemi a from Last 3 Months or Most Recently Relevant to Health Maintenance Results * Gross and Microscopic Level 3 (10/05/2024 9:45 AM EDT) 10/05/2024 9:45 AM EDT 10/05/2024 11:28 AM EDT [facility] - 10/06/2024 2:26 PM EDT ----- ------- Name: Shahram Dougherty ? Age/Sex: 38/M ? : 1985 Unit#: [id number] ?? Attend Dr: Simona Baltazar MD ?Re10/05/24 ?Status: DEP SD ? Location: HO.SSS ?Disch: ? ----- ------- SPEC : [id number] ? RECD: 10/05/24 ? STATUS: ??SOUT ? REQ NUM: [id number] ? PEPPER: 10/05/24 ? SUBM DR: Simona Baltazar MD ? ENTERED: ??10/05/24 ?SP TYPE: Surgical ? OTHR DR: TIFFANY SWANSON NP ? ORDERED: ??Gross Micro L3 ? Diagnosis ?? Soft tissue, left wrist, excision: ??Fibrovascular and adipose tissue with pseudocyst ?? formation and myxoid change, consistent with ganglion. ?Clinical History Left wrist volar ganglion ?Microscopic Description Microscopic sections reviewed. ? Material Received ?? Left wrist volar ganglion ? Gross Description Received in formalin labeled ?left wrist volar ganglion? is a 1.1 cm in greatest dimension smooth and shaggy, lyons-white cyst with scant attached delicate fibrous tissue. ??The margins are inked and the specimen is sectioned to reveal a thin-walled cyst containing clear tenacious mucus. ??Hogshead Liner sections are submitted in a cassette labeled A1. CEDS Copies To: ?? Simona Baltazar MD ?? [facility] ?? [address] [place] [address] Dr [address] ?? [place] [address] ?? [phone] ?? TIFFANY SWANSON NP ?? [facility] ?? [address] [facility] [address] ?? [place] [address] ?? [phone] ----- ------- Signed (signature on file) Billy Duran MD 10/06/241425 ? ----- ------- ? END OF REPORT ? us Generic External Data Provider LAB CYTOLOGY NASRIN RODRÍGUEZ Final Result [facility] [address] [facility] [place] [address] [phone] * POCT JANIA-14 Urine Drug Screen (09/26/2024 11:07 AM EDT) Urine Urine specimen obtained by clean catch procedure / Unknown 09/26/2024 11:07 AM EDT Narrative Sol Lennon, ANCA - 09/26/2024 11:07 AM EDT negative AMP, BAR, BUP, BZO, ZOIE, FTY, MDMA, MET, MOP, MTD, OXY, PCP, TCA, THC. Lot# [id number] Exp: 02-14-26 Tiffany Swanson ANP POINT OF CARE TEST ENTER/EDIT OR DERABLES Final Result * (ABNORMAL) Lipid Panel, Standard (10/28/2023 3:28 PM EDT) Triglycerides 173(H) <150 mg/dL [facility] Comment:Desirable Triglyceri de: less than 150 mg/dLBorderline High Triglyceride 150-199 mg/dLHigh Triglyceride: 200-499 mg/dLVery High Triglyceride: greater than or equal to 5OO mg/dL Cholesterol 201(H) <200 mg/dL [facility] Comment:Desirable Cholestero l: less than 200 mg/dLBorderline High Cholesterol: 200-239 mg/dLHigh Cholesterol: greater than 239 mg/dL LDL Cholesterol Calculated 125(H) <100 mg/dL [facility] Comment:Desirable LDL: less than 100 mg/dLNear Optimal/Above Optimal LDL: 110- 129 mg/dLBorderline High LDL: 130-159 mg/dLHigh LDL: 160-189 mg/dLVery High LDL: greater than or equal to 190 mg/dL HDL Cholesterol 42 >40 mg/dL [facility] Comment:Desirable HDL: great er than 40 mg/dL Note: This HDL assay may give artificially low results in patients with liver disease. Blood Venous blood specimen / Unknown 10/28/2023 3:28 PM EDT 10/28/2023 4:10 PM EDT Tiffany Swanson ANP LAB BLOOD ORDERABLES Final Resul t [facility] [address] [place], [place] [phone] from Last 3 Months or Most Recently Relevant to Health Maintenance [place] [address] [place] [address] C3 Care Teams Grass Farmer Relationship Specialty Start Date End Date Tiffany Swanson ANP [address] [place] [address] [place] [address] PCP - General Family Medicine 08/27/20
--- OUTSIDE RECORDS SUMMARY | 2024-10-18 12:22 | XMS_ITS | Encounter Summary ---
Author Organization [employer] Address [address] [facility] [address] [place] [address] Care Team Providers Care At Risk Specialist Name Role Phone Karon Dickson Primary Care Provider [phone] Reason for Visit * Reason Onset Date Comments Med Refill 12/16/2023 Encounter Details Date Type Department Care Team ([facility] st Contact Info) Description 12/16/2023 Refill [facility] [address] [place], [place] [phone] Karon Dickson ANP [address] [place] [address] Impingement syndrome of right shoulder region Social [...] the past 12 months, has t he [employer], gas, oil or water company threatened to shut off services in your home? No 04/12/2023 Depression Answer Date Recorded Patient Health Questionnaire-2 Score 0 06/24/2023 Sex and Gender Information Value Date Recorded Sex Assigned at Male 04/27/2022 10:30 AM EDT Legal Sex Male 10:30 AM EDT Gender Identity Male 04/27/2022 10:30 AM EDT Sexual Orientation Straight 04/27/2022 10 :30 AM EDT documented as of this encounter Plan of Treatment Upcoming Encounters Date Type Department Care Team (Late st Contact Info) Description 12/27/2024 10:30 AM EDT Clinical Support [facility] [address] [place] [address] Sol Lennon, ANCA [address] [place] [address] 01/22/2025 11:00 AM EDT Office Visit [facility] [address] [place] [address] Karon Dickson ANP [address] [place] [address] documented as of this encounter Visit Diagnoses Diagnosis Impingement syndrome of right shoulder region documented in this encounter Additional Health Concerns Assessment Noted Time PHQ-9 Depression Total Score: 0 06/24/20 23 2:47 PM EST documented as of this encounter Care Teams At Risk Specialist Relationship Specialty Start Date End Date Karon Dickson ANP [address] [place] [id number] PCP - General Family Medicine 08/27/20 documented as of this encounter
--- OUTSIDE RECORDS SUMMARY | 2024-10-18 12:22 | XMS_ITS | Encounter Summary ---
Author Organization [employer] Address 75 [facility] 7t [place] [address] Care Team Providers Care Publications Designer Name Role Phone Karon Dickson Primary Care Provider [phone] Encounter Details Date Type Department Care Team ([facility] Contact Info) Description 08/15/2024 Telephone [facility] MEDICINE [address] [place], [place] [phone] Karon Dickson ANP 230 [place], [place] [phone] Social History Tobacco Use Types Packs/Day Years [...] placed to pt who states that per [facility] pharmacy the pt needs additional information/documentation in order to have the Amnesteem 40 MG capsule prescribed. Ordering provider is Dr. Lerma at [facility] dermatology. Will forward this message to the [facility] inbox to inquire with Dr. Lerma and [facility] pharmacy what is needed. * Telephone Encounter - Mona Roblero - 08/15/2024 10:19 AM EST Tc from pt calling to inform pharmacy is not able to distribute medication due needing additional information. Strip Cutting Machine Operator called pharmacy and was inform a I pledge survey needs to be done. Pt has no moremedication left. documented in this encounter Plan of Treatment Upcoming Encounters Date Type Department Care Team (Late st Contact Info) Description 12/27/2024 10:30 AM EDT Clinical Support [facility] MED & PEDS 505 [place] [address] Sol Lennon, ANCA 505 [place] [address] 01/22/2025 11:00 AM EDT Office Visit [facility] MEDICINE 230 [place] [address] Karon Dickson ANP 230 [place] [address] documented as of this encounter Visit Diagnoses Not on filedocumented in this encounter Additional Health Concerns Assessment Noted Time PHQ-9 Depression Total Score: 1 07/11/19 25 11:22 AM EST documented as of this encounter Care Teams Publications Designer Relationship Specialty Start Date End Date Karon Dickson ANP [address] [place] [address] PCP - General Family Medicine 08/27/20 documented as of this encounter
--- OUTSIDE RECORDS SUMMARY | 2024-10-18 12:22 | XMS_ITS | Encounter Summary ---
Author Organization 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 Encounter Details Date Type Department Care Team ([facility] Contact Info) Description 01/11/2024 Telephone [facility] MEDICINE 230 [place], [place] [phone] Karon Dickson ANP 230 [place], [place] [phone] LIME SUPERVISOR Social History Tobacco Use Types Packs/Day Years [...] from pt requesting to r/s appt for LIME SUPERVISOR on 01/12/24 due to work schedule documented in this encounter Plan of Treatment Upcoming Encounters Date Type Department Care Team (Late st Contact Info) Description 12/27/2024 10:30 AM EDT Clinical Support [facility] MED & PEDS 505 [place] [address] Sol Lennon, ANCA 505 [place] [address] 01/22/2025 11:00 AM EDT Office Visit [facility] MEDICINE 230 [place], [place] [phone] Karon Dickson ANP 230 [place] [address] documented as of this encounter Visit Diagnoses Not on filedocumented in this encounter Additional Health Concerns Assessment Noted Time PHQ-9 Depression Total Score: 0 06/24/20 23 2:47 PM EST documented as of this encounter Care Teams Server Assistant Relationship Specialty Start Date End Date Karon Dickson ANP 230 [place] [address] PCP - General Family Medicine 08/27/20 documented as of this encounter
--- OUTSIDE RECORDS SUMMARY | 2024-10-18 12:22 | XMS_ITS | Encounter Summary ---
Author Organization [employer] Address [address] [facility] 7t [place] [address] Care Team Providers Care Transportation Maintenance Specialist Name Role Phone Karon Dickson Primary Care Provider [phone] Reason for Visit * Reason Onset Date Comments Med Refill 09/14/2024 Encounter Details Date Type Department Care Team ([facility] st Contact Info) Description 09/14/2024 Refill [facility] MEDICINE 230 [place], [place] [phone] Karon Dickson ANP 230 [place] [address] Cervical radiculopathy Social History Tobacco Use Types [...] the past 12 months, has t he [employer], gas, oil or water [facility] threatened to shut off services in your [...] 12/27/2024 10:30 AM EDT Clinical Support [facility] MED & PEDS 505 [place] [address] Sol Lennon, ANCA 505 [place] [address] 01/22/2025 11:00 AM EDT Office Visit [facility] MEDICINE 230 [place] [address] Karon Dickson ANP 230 [place] [address] documented as of this encounter Visit Diagnoses Diagnosis Cervical radiculopathy Brachial neuritis or radiculitis nos documented in this encounter Additional Health Concerns Assessment Noted Time PHQ-9 Depression Total Score: 1 07/11/19 25 11:22 AM EST documented as of this encounter Care Teams Transportation Maintenance Specialist Relationship Specialty Start Date End Date Karon Dickson ANP [address] [place] [address] PCP - General Family Medicine 08/27/20 documented as of this encounter
--- OUTSIDE RECORDS SUMMARY | 2024-10-18 12:22 | XMS_ITS | Encounter Summary ---
Author Organization [employer] Address 75 [facility] 7t [place] [address] Care Team Providers Care Assembler Installer Structures Name Role Phone Karon Dickson Primary Care Provider [phone] Reason for Visit * Reason Onset Date Comments Appointment Request 08/24/2023 Encounter Details Date Type Department Care Team ([facility] Contact Info) Description 08/24/2023 Telephone [facility] MEDICINE 230 [place], [place] [phone] Karon Dickson ANP 230 [place] [address] Appointment Request Social History Tobacco Use Types [...] Description 12/27/2024 10:30 AM EDT Clinical Support [facility] MED & PEDS 505 [place] [address] Sol Lennon, ANCA 505 [place] [address] 01/22/2025 11:00 AM EDT Office Visit [facility] MEDICINE 230 [place], [place] [phone] Karon Dickson ANP 230 [place] [address] documented as of this encounter Visit Diagnoses Not on filedocumented in this encounter Additional Health Concerns Assessment Noted Time PHQ-9 Depression Total Score: 0 06/24/20 23 2:47 PM EST documented as of this encounter Care Teams Assembler Installer Structures Relationship Specialty Start Date End Date Karon Dickson ANP 230 [place] [address] PCP - General Family Medicine 08/27/20 documented as of this encounter
--- OUTSIDE RECORDS SUMMARY | 2024-10-18 12:22 | XMS_ITS | Encounter Summary ---
Author Organization [employer] Address 75 [facility] 7t [place] [address] Care Team Providers Care Local City Driver Name Role Phone Karon Dickson Primary Care Provider [phone] Reason for Visit * Reason Onset Date Comments Med Refill 05/28/2024 Encounter Details Date Type Department Care Team ([facility] st Contact Info) Description 05/28/2024 Refill [facility] MED & PEDS [address] [place], [place] [phone] Karon Dickson ANP 230 [place] [address] Impingement syndrome of right shoulder region Social [...] the past 12 months, has t he [employer], gas, oil or water company threatened to [...] 12/27/2024 10:30 AM EDT Clinical Support [facility] MED & PEDS 505 [place] [address] Sol Lennon, ANCA 505 [place] [address] 01/22/2025 11:00 AM EDT Office Visit [facility] MEDICINE [address] [place] [address] Karon Dickson ANP 230 [place] [address] documented as of this encounter Visit Diagnoses Diagnosis Impingement syndrome of right shoulder region documented in this encounter Additional Health Concerns Assessment Noted Time PHQ-9 Depression Total Score: 0 06/24/20 23 2:47 PM EST documented as of this encounter Care Teams Local City Driver Relationship Specialty Start Date End Date Karon Dickson ANP [address] [place] [address] PCP - General Family Medicine 08/27/20 documented as of this encounter
--- OUTSIDE RECORDS SUMMARY | 2024-10-18 12:22 | XMS_ITS | Encounter Summary ---
Author Organization [employer] Address 75 [facility] 7t [place] [address] Care Team Providers Care Cooperative Education Coordinator Name Role Phone Karon Dickson ROBERT Primary Care Provider [phone] Reason for Visit * Reason Comments Med Refill Encounter Details Date Type Department Care Team ([facility] Contact Info) Description 02/11/2024 Refill [facility] MED & PEDS 505 [place] [address] Allison Martinez MD 230 [place] [address] Impingement syndrome of right shoulder region Social [...] [facility] 505 [place] [address] Sol Lennon, RN 505 [place] [address] 01/22/2025 11:00 AM EDT Office Visit [facility] MEDICINE [address] [place] [address] Karon Dickson ANP 230 [place] [address] documented as of this encounter Visit Diagnoses Diagnosis Impingement syndrome of right shoulder region documented in this encounter Additional Health Concerns Assessment Noted Time PHQ-9 Depression Total Score: 0 06/24/20 23 2:47 PM EST documented as of this encounter Care Teams Cooperative Education Coordinator Relationship Specialty Start Date End Date Karon Dickson ANP [address] [place] [address] PCP - General Family Medicine 08/27/20 documented as of this encounter
--- OUTSIDE RECORDS SUMMARY | 2024-10-18 12:22 | XMS_ITS | Encounter Summary ---
Author Organization [employer] Address 75 [facility] 7t [place] [address] Care Team Providers Care Hardwood Floor Installer Name Role Phone Karon Dickson ROBERT Primary Care Provider [phone] Reason for Visit * Reason Onset Date Comments Med Refill 09/20/2024 Encounter Details Date Type Department Care Team ([facility] st Contact Info) Description 09/20/2024 Refill [facility] MEDICINE 230 [place] [address] Funmi Anders MD 230 [place] [address] Social History Tobacco Use Types Packs/Day Years [...] Description 12/27/2024 10:30 AM EDT Clinical Support [facility] MED & PEDS 505 [place] [address] Sol Lennon, ANCA 505 [place] [address] 01/22/2025 11:00 AM EDT Office Visit [facility] MEDICINE 230 [place] [address] Karon Dickson ANP 230 [place] [address] documented as of this encounter Visit Diagnoses Not on filedocumented in this encounter Additional Health Concerns Assessment Noted Time PHQ-9 Depression Total Score: 1 07/11/19 25 11:22 AM EST documented as of this encounter Care Teams Hardwood Floor Installer Relationship Specialty Start Date End Date Karon Dickson ANP [address] [place] [address] PCP - General Family Medicine 08/27/20 documented as of this encounter
--- OUTSIDE RECORDS SUMMARY | 2024-10-18 12:22 | XMS_ITS | Clinical Summary ---
Author Organization [employer] [facility] ity Address [address] [place] [address] Care Team Providers Care Baby Stroller Rental Clerk Name Role Phone Unavailable Primary Care Provider [...]
--- OUTSIDE RECORDS SUMMARY | 2024-10-18 12:22 | XMS_ITS | Encounter Summary ---
Author Organization [employer] Address 75 [facility] 7t [place] [address] Care Team Providers Care Supervisor Painting Name Role Phone Karon Dickson Primary Care Provider [phone] Reason for Visit * Reason Onset Date Comments Appointment Request 09/23/2023 Encounter Details Date Type Department Care Team ([facility] Contact Info) Description 09/23/2023 Telephone [facility] MEDICINE 230 [place], [place] [phone] Karon Dickson ANP 230 [place] [address] Appointment Request Social History Tobacco Use Types [...] Description 12/27/2024 10:30 AM EDT Clinical Support [facility] MED & PEDS 505 [place] [address] Sol Lennon, ANCA 505 [place] [address] 01/22/2025 11:00 AM EDT Office Visit [facility] MEDICINE 230 [place] [address] Karon Dickson ANP 230 [place] [address] documented as of this encounter Visit Diagnoses Not on filedocumented in this encounter Additional Health Concerns Assessment Noted Time PHQ-9 Depression Total Score: 0 06/24/20 23 2:47 PM EST documented as of this encounter Care Teams Supervisor Painting Relationship Specialty Start Date End Date Karon Dickson ANP 230 [place] [address] PCP - General Family Medicine 08/27/20 documented as of this encounter
--- OUTSIDE RECORDS SUMMARY | 2024-10-18 12:22 | XMS_ITS | Encounter Summary ---
Author Organization [employer] Address 75 [facility] 7t [place] [address] Care Team Providers Care Bridge Worker Name Role Phone Karon Dickson Primary Care Provider [phone] Reason for Visit * Reason Onset Date Comments Med Refill 12/16/2023 Encounter Details Date Type Department Care Team ([facility] st Contact Info) Description 12/16/2023 Refill [facility] MEDICINE 230 [place] [address] Karon Dickson ANP 230 [place] [address] Impingement syndrome of right shoulder region; Cervical [...] the past 12 months, has t he [employer], gas, oil or water company threatened to [...] Description 12/27/2024 10:30 AM EDT Clinical Support [facility] MED [facility] PEDS 505 [place] [address] Sol Lennon, ANCA 505 [place] [address] 01/22/2025 11:00 AM EDT Office Visit [facility] MEDICINE [address] [place] [address] Karon Dickson ANP 230 [place] [address] documented as of this encounter Visit Diagnoses Diagnosis Impingement syndrome of right shoulder region Cervical radiculopathy Brachial neuritis or radiculitis nos documented in this encounter Additional Health Concerns Assessment Noted Time PHQ-9 Depression Total Score: 0 06/24/20 23 2:47 PM EST documented as of this encounter Care Teams Bridge Worker Relationship Specialty Start Date End Date Karon Dickson ANP [address] [place] [address] PCP - General Family Medicine 08/27/20 documented as of this encounter
--- OUTSIDE RECORDS SUMMARY | 2024-10-18 12:22 | XMS_ITS | Encounter Summary ---
Author Organization [employer] Address 75 [facility] 7t [place] [address] Care Team Providers Care Biometric Technician Name Role Phone Karon Dickson Primary Care Provider [phone] Reason for Visit * Reason Onset Date Comments Med Refill 08/04/2023 Encounter Details Date Type Department Care Team ([facility] st Contact Info) Description 08/04/2023 Refill [facility] MEDICINE 230 [place], [place] [phone] Karon Dickson ANP 230 [place] [address] Cervical radiculopathy Social History Tobacco Use Types [...] your housing situation today? I have lupe ramírze 04/12/[address] you li [...] the past 12 months, has t he [employer], gas, oil or water company threatened to [...] Description 12/27/2024 10:30 AM EDT Clinical Support [facility] CH[facility] MED & PEDS 505 [place] [address] Sol Lennon, RN 505 [place] [address] 01/22/2025 11:00 AM EDT Office Visit [facility] MEDICINE 230 [place] [address] Karon Dickson ANP 230 [place] [address] documented as of this encounter Visit Diagnoses Diagnosis Cervical radiculopathy Brachial neuritis or radiculitis nos documented in this encounter Additional Health Concerns Assessment Noted Time PHQ-9 Depression Total Score: 0 06/24/20 23 2:47 PM EST documented as of this encounter Care Teams Biometric Technician Relationship Specialty Start Date End Date Karon Dickson ANP [address] [place] [address] PCP - General Family Medicine 08/27/20 documented as of this encounter
--- OUTSIDE RECORDS SUMMARY | 2024-10-18 12:22 | XMS_ITS | Encounter Summary ---
Author Organization [employer] Address 75 [facility] 7t [place] [address] Care Team Providers Care Chief Of Staff Doctor Name Role Phone Karon Dickson Primary Care Provider [phone] Reason for Visit * Reason Comments Med Refill Encounter Details Date Type Department Care Team ([facility] Contact Info) Description 04/20/2023 Refill [facility] MEDICINE 230 [place], [place] [phone] Karon Dickson ANP 230 [place] [address] Impingement syndrome of right shoulder region Social [...] Description 12/27/2024 10:30 AM EDT Clinical Support [facility] CH[facility] MED & PEDS 505 [place] [address] Sol Lennon, RN 505 [place] [address] 01/22/2025 11:00 AM EDT Office Visit [facility] MEDICINE 230 [place] [address] Karon Dickson ANP 230 [place] [address] documented as of this encounter Visit Diagnoses Diagnosis Impingement syndrome of right shoulder region documented in this encounter Care Teams Chief Of Staff Doctor Relationship Specialty Start Date End Date Karon Dickson ANP [address] [place] [address] PCP - General Family Medicine 08/27/20 documented as of this encounter
--- OUTSIDE RECORDS SUMMARY | 2024-10-18 12:22 | XMS_ITS | Clinical Summary ---
Author Organization [employer] [facility] Address [address] [facility] [address] [place] [address] Phone Care Team Providers Care Music Box Mechanic Name Role Phone Karon Dickson ROBERT Primary Care Provider [phone] Social History Tobacco Use Types Packs/Day Years Used Date Smoking Tobacco: Never Assessed Education Answer Date Recorded Are you interested in more education? Not on arsenio e 04/21/2024 Are you concerned about learning? Not on file 04/21/2024 No 04/21/2024 No 04/21/2024 Digital Access Answer Date Recorded No 04/21/2024 No 04/21/2024 Reliable internet access at home? Not on file 04/21/2024 Device with a working camera? Not on file Sex and Gender Information Value Date Recorded Sex Assigned at Not on file Gender Identity Not on file Sexual Orientation Not on file Plan of Treatment Health Maintenance Due Date Last Done Comments DEPRESSION SCREENING 1998 SMOKING Hx and SMOKELESS TOBACCO SCREENING 10/31/1999 HEPATITIS C SCREENING 2004 HIV ONE-TIME SCREENING (18-6 5 YEARS) 2004 COVID-19 VACCINE (2023-2 5 season) 2024 08/18/2022, 12/28/2020, 11/16/2020 Adult Td,Tdap Booster 07/08/2026 07/08/2016 LIPID PANEL 10/27/2028 10/28/2023 HEPATITIS A VACCINES Aged Out No long er eligible based on patient's age to complete this topic HIB VACCINES Aged Out No longer eligi ble based on patient's age to complete this topic MENINGOCOCCAL VACCINES (ACWY) Aged Out No longer eligible based on patient's age to complete this topic PNEUMOCOCCAL VACCINES (0-49 years) Aged Out No longer eligible b ased on patient's age to complete this topic Medical Devices Not on file Care Teams Music Box Mechanic Relationship Specialty Start Date End Date Karon Dickson ANP [address] [place] [address] PCP - General Nurse Practitioner 04/21/24 Additional Source Comments The information contained in this document represents components of the legal health record. It is not the complete legal health record.[facility]
--- OUTSIDE RECORDS SUMMARY | 2024-10-18 12:22 | XMS_ITS | Encounter Summary ---
Author Organization [facility] Address 75 [facility] 7t [place] [address] Care Team Providers Care Flume Maker Name Role Phone Karon Dickson Primary Care Provider [phone] Reason for Visit * Reason Comments Med Refill Encounter Details Date Type Department Care Team (Late st Contact Info) Description 07/21/2022 Refill [facility] MEDICINE 230 [place], [place] [phone] Karon Dickson ANP 230 [place] [address] Impingement syndrome of right shoulder region Social History Tobacco Use Types Packs/Day Years Used Date Smoking Tobacco: Never Assessed Sex and Gender Information Value Date Recorded Sex Assigned at Male 04/27/2022 10:30 AM EDT Legal Sex Male 10:30 AM EDT Gender Identity Male 04/27/2022 10:30 AM EDT Sexual Orientation Straight 04/27/2022 10 :30 AM EDT COVID-19 Exposure Response Date Recorded In the [...] Department Care Team (Late Contact Info) Description 12/27/2024 10:30 AM EDT Clinical Support [facility] MED & PEDS 505 [place] [address] Sol Lennon, RN 505 [place] [address] 01/22/2025 11:00 AM EDT Office Visit [facility] MEDICINE 230 [place] [address] Karon Dickson ANP 230 [place] [address] documented as of this encounter Visit Diagnoses Diagnosis Impingement syndrome of right shoulder region documented in this encounter Care Teams Flume Maker Relationship Specialty Start Date End Date Karon Dickson ANP [address] [place] [address] PCP - General Family Medicine 08/27/20 documented as of this encounter
--- OUTSIDE RECORDS SUMMARY | 2024-10-18 12:22 | XMS_ITS | Encounter Summary ---
Author Organization [employer] Address [address] [facility] 7t [place] [address] Care Team Providers Care Bran Mixer Name Role Phone Karon Dickson Primary Care Provider [phone] Reason for Visit * Reason Onset Date Comments Med Refill 07/28/2023 Encounter Details Date Type Department Care Team ([facility] st Contact Info) Description 07/28/2023 Refill [facility] MEDICINE 230 [place], [place] [phone] Karon Dickson ANP 230 [place] [address] Gastroesophageal reflux disease, unspecified whether esophagitis present [...] the past 12 months, has t he [employer], gas, oil or water company threatened to [...] Description 12/27/2024 10:30 AM EDT Clinical Support [facility] MED & PEDS 505 [place] [address] Sol Lennon, ANCA 505 [place] [address] 01/22/2025 11:00 AM EDT Office Visit [facility] MEDICINE [address] [place] [address] Karon Dickson ANP 230 [place] [address] documented as of this encounter Visit Diagnoses Diagnosis Gastroesophageal reflux disease, unspecified whether esophagitis present documented in this encounter Additional Health Concerns Assessment Noted Time PHQ-9 Depression Total Score: 0 06/24/20 23 2:47 PM EST documented as of this encounter Care Teams Bran Mixer Relationship Specialty Start Date End Date Karon Dickson ANP [address] [place] [address] PCP - General Family Medicine 08/27/20 documented as of this encounter
--- OUTSIDE RECORDS SUMMARY | 2024-10-18 12:22 | XMS_ITS | Encounter Summary ---
Author Organization [employer] Address 75 [facility] 7t [place] [address] Care Team Providers Care Risk Management Manager Name Role Phone Karon Dickson Primary Care Provider [phone] Reason for Visit * Reason Comments Med Refill Encounter Details Date Type Department Care Team ([facility] Contact Info) Description 04/21/2023 Refill [facility] MEDICINE [address] [place], [place] [phone] Karon Dickson ANP 230 [place] [address] Impingement syndrome of right shoulder region Social [...] Description 12/27/2024 10:30 AM EDT Clinical Support [facility] CHC MED & PEDS 505 [place] [address] Sol Lennon, RN 505 [place] [address] 01/22/2025 11:00 AM EDT Office Visit [facility] MEDICINE 230 [place] [address] Karon Dickson ANP 230 [place] [address] documented as of this encounter Visit Diagnoses Diagnosis Impingement syndrome of right shoulder region documented in this encounter Care Teams Risk Management Manager Relationship Specialty Start Date End Date Karon Dickson ANP [address] [place] [address] PCP - General Family Medicine 08/27/20 documented as of this encounter
--- OUTSIDE RECORDS SUMMARY | 2024-10-18 12:22 | XMS_ITS | Encounter Summary ---
Author Organization [employer] [facility] Address 75 [facility] 7t [place] [address] Care Team Providers Care Car Conditioner Name Role Phone Karon Dickson Primary Care Provider [phone] Reason for Visit * Reason Comments Med Refill Encounter Details Date Type Department Care Team (Late st Contact Info) Description 10/15/2022 Refill [facility] MEDICINE 230 [place], [place] [phone] Karon Dickson ANP 230 [place] [address] Impingement syndrome of right shoulder region Social [...] Description 12/27/2024 10:30 AM EDT Clinical Support [facility] CHC MED & PEDS 505 [place] [address] Sol Lennon, RN 505 [place] [address] 01/22/2025 11:00 AM EDT Office Visit [facility] MEDICINE 230 [place] [address] Karon Dickson ANP 230 [place] [address] documented as of this encounter Visit Diagnoses Diagnosis Impingement syndrome of right shoulder region documented in this encounter Care Teams Car Conditioner Relationship Specialty Start Date End Date Karon Dickson ANP [address] [place] [address] PCP - General Family Medicine 08/27/20 documented as of this encounter
--- OUTSIDE RECORDS SUMMARY | 2024-10-18 12:22 | XMS_ITS | Encounter Summary ---
Author Organization [employer] Address 75 [facility] 7t [place] [address] Care Team Providers Care Technical Editor Name Role Phone Karon Dickson Primary Care Provider [phone] Reason for Visit * Reason Onset Date Comments Med Refill 10/26/2023 Encounter Details Date Type Department Care Team ([facility] st Contact Info) Description 10/26/2023 Refill [facility] CHC MED & PEDS [address] [place], [place] [phone] Karon Dickson ANP 230 [place] [address] Impingement syndrome of right shoulder region Social [...] the past 12 months, has t he [employer], gas, oil or water company threatened to [...] Description 12/27/2024 10:30 AM EDT Clinical Support [facility] CHC MED & PEDS 505 [place] [address] Sol Lennon, ANCA 505 [place] [address] 01/22/2025 11:00 AM EDT Office Visit [facility] MEDICINE [address] [place] [address] Karon Dickson ANP 230 [place] [address] documented as of this encounter Visit Diagnoses Diagnosis Impingement syndrome of right shoulder region documented in this encounter Additional Health Concerns Assessment Noted Time PHQ-9 Depression Total Score: 0 06/24/20 23 2:47 PM EST documented as of this encounter Care Teams Technical Editor Relationship Specialty Start Date End Date Karon Dickson ANP [address] [place] [address] PCP - General Family Medicine 08/27/20 documented as of this encounter
--- OUTSIDE RECORDS SUMMARY | 2024-10-18 12:22 | XMS_ITS | Encounter Summary ---
Author Organization [employer] Address 75 [facility] 7t [place] [address] Care Team Providers Care Broom Stitcher Name Role Phone Karon Dickson ROBERT Primary Care Provider [phone] Encounter Details Date Type Department Care Team ([facility] Contact Info) Description 06/19/2024 Orders Only [facility] CHC MED & PEDS 505 [place], [place] [phone] Felton Lerma MD 505 [place] [address] Social History Tobacco Use Types Packs/Day Years [...] 10:30 AM EDT Clinical Support [facility] CHC MED & PEDS 505 [place] [address] Sol Lennon, RN 505 [place] [address] 01/22/2025 11:00 AM EDT Office Visit [facility] MEDICINE [address] [place] [address] Karon Dickson ANP 230 [place] [address] documented as of this encounter Visit Diagnoses Not on filedocumented in this encounter Additional Health Concerns Assessment Noted Time PHQ-9 Depression Total Score: 0 06/24/20 23 2:47 PM EST documented as of this encounter Care Teams Broom Stitcher Relationship Specialty Start Date End Date Karon Dickson ANP [address] [place] [address] PCP - General Family Medicine 08/27/20 documented as of this encounter
--- OUTSIDE RECORDS SUMMARY | 2024-10-18 12:22 | XMS_ITS | Encounter Summary ---
Author Organization [employer] Address 75 [facility] 7 [place] [address] Care Team Providers Care Interactive Video Technician Name Role Phone Karon Dickson Primary Care Provider [phone] Reason for Visit * Reason Onset Date Comments Call Back Request 07/18/2024 Appointment Request 07/18/2024 Encounter Details Date Type Department Care Team ([facility] Contact Info) Description 07/18/2024 Telephone [facility] MEDICINE 230 [place], [place] [phone] Karon Dickson ANP 230 [place] [address] Call Back Request; Appointment Request Social History [...] the past 12 months, has t he [employer], gas, oil or water [employer] threatened to shut off services in your [...] Description 12/27/2024 10:30 AM EDT Clinical Support [facility] CHC MED & PEDS 505 [place] [address] Sol Lennon, RN 505 [place] [address] 01/22/2025 11:00 AM EDT Office Visit [facility] MEDICINE 230 [place] [address] Karon Dickson ANP 230 [place] [address] documented as of this encounter Visit Diagnoses Not on filedocumented in this encounter Additional Health Concerns Assessment Noted Time PHQ-9 Depression Total Score: 1 07/11/19 25 11:22 AM EST documented as of this encounter Care Teams Interactive Video Technician Relationship Specialty Start Date End Date Karon Dickson ANP 230 [place] [address] PCP - General Family Medicine 08/27/20 documented as of this encounter
--- OUTSIDE RECORDS SUMMARY | 2024-10-18 12:22 | XMS_ITS | Encounter Summary ---
Author Organization [employer] Address 75 [facility] 7t [place] [address] Care Team Providers Care Hr Receptionist Name Role Phone Karon Dickson Primary Care Provider [phone] Reason for Visit * Reason Onset Date Comments Med Refill 09/27/2023 Encounter Details Date Type Department Care Team ([facility] st Contact Info) Description 09/27/2023 Refill [facility] MEDICINE [address] [place], [place] [phone] Karon Dickson ANP 230 [place] [address] Cervical radiculopathy Social History Tobacco Use Types [...] the past 12 months, has t he [employer], gas, oil or water company threatened to [...] Description 12/27/2024 10:30 AM EDT Clinical Support [facility] CHC MED & PEDS 505 [place] [address] Sol Lennon, RN 505 [place] [address] 01/22/2025 11:00 AM EDT Office Visit [facility] MEDICINE 230 [place] [address] Karon Dickson ANP 230 [place] [address] documented as of this encounter Visit Diagnoses Diagnosis Cervical radiculopathy Brachial neuritis or radiculitis nos documented in this encounter Additional Health Concerns Assessment Noted Time PHQ-9 Depression Total Score: 0 06/24/20 23 2:47 PM EST documented as of this encounter Care Teams Hr Receptionist Relationship Specialty Start Date End Date Karon Dickson ANP [address] [place] [address] PCP - General Family Medicine 08/27/20 documented as of this encounter
--- OUTSIDE RECORDS SUMMARY | 2024-10-18 12:22 | XMS_ITS | Encounter Summary ---
Author Organization [employer] Address 75 [facility] 7t [place] [address] Care Team Providers Care Distillery Laborer Name Role Phone Karon Dickson Primary Care Provider [phone] Reason for Visit * Reason Onset Date Comments Med Refill 02/11/2024 Encounter Details Date Type Department Care Team ([facility] st Contact Info) Description 02/11/2024 Refill [facility] MEDICINE 230 [place], [place] [phone] Karon Dickson ANP 230 [place] [address] Gastroesophageal reflux disease, unspecified whether esophagitis present [...] the past 12 months, has t he [employer], gas, oil or water company threatened to [...] Description 12/27/2024 10:30 AM EDT Clinical Support [facility] CHC MED & PEDS 505 [place] [address] Sol Lennon, ANCA 505 [place] [address] 01/22/2025 11:00 AM EDT Office Visit [facility] MEDICINE [address] [place] [address] Karon Dickson ANP 230 [place] [address] documented as of this encounter Visit Diagnoses Diagnosis Gastroesophageal reflux disease, unspecified whether esophagitis present documented in this encounter Additional Health Concerns Assessment Noted Time PHQ-9 Depression Total Score: 0 06/24/20 23 2:47 PM EST documented as of this encounter Care Teams Distillery Laborer Relationship Specialty Start Date End Date Karon Dickson ANP [address] [place] [address] PCP - General Family Medicine 08/27/20 documented as of this encounter
--- OUTSIDE RECORDS SUMMARY | 2024-10-18 12:22 | XMS_ITS | Encounter Summary ---
Author Organization [employer] Address 75 [facility] 7t [place] [address] Care Team Providers Care Correspondence Clerk Name Role Phone Karon Dickson Primary Care Provider Reason for Visit * Reason Onset Date Comments Med Refill 05/30/2024 Encounter Details Date Type Department Care Team ([facility] st Contact Info) Description 05/30/2024 Refill [facility] CHC MED & PEDS [address] [place], [place] [phone] Karon Dickson ANP 230 [place] [address] Impingement syndrome of right shoulder region Social [...] the past 12 months, has t he [employer], gas, oil or water company threatened to [...] Description 12/27/2024 10:30 AM EDT Clinical Support [facility] CHC MED & PEDS 505 [place] [address] Sol Lennon, ANCA 505 [place] [address] 01/22/2025 11:00 AM EDT Office Visit [facility] MEDICINE [address] [place] [address] Karon Dickson ANP 230 [place] [address] documented as of this encounter Visit Diagnoses Diagnosis Impingement syndrome of right shoulder region documented in this encounter Additional Health Concerns Assessment Noted Time PHQ-9 Depression Total Score: 0 06/24/20 23 2:47 PM EST documented as of this encounter Care Teams Correspondence Clerk Relationship Specialty Start Date End Date Karon Dickson ANP [address] [place] [address] PCP - General Family Medicine 08/27/20 documented as of this encounter
--- OUTSIDE RECORDS SUMMARY | 2024-10-18 12:22 | XMS_ITS | Encounter Summary ---
Author Organization [employer] Address 75 [facility] 7t [place] [address] Care Team Providers Care Photovoltaic Fabrication Technician Name Role Phone Karon Dickson Primary Care Provider [phone] Reason for Visit * Reason Onset Date Comments Med Refill 11/18/2023 Encounter Details Date Type Department Care Team ([facility] st Contact Info) Description 11/18/2023 Refill [facility] CHC MED & PEDS [address] [place], [place] [phone] Karon Dickson ANP 230 [place] [address] Impingement syndrome of right shoulder region Social [...] the past 12 months, has t he [employer], gas, oil or water company threatened to [...] Description 12/27/2024 10:30 AM EDT Clinical Support [facility] CHC MED & PEDS 505 [place] [address] Sol Lennon, ANCA 505 [place] [address] 01/22/2025 11:00 AM EDT Office Visit [facility] MEDICINE [address] [place] [address] Karon Dickson ANP 230 [place] [address] documented as of this encounter Visit Diagnoses Diagnosis Impingement syndrome of right shoulder region documented in this encounter Additional Health Concerns Assessment Noted Time PHQ-9 Depression Total Score: 0 06/24/20 23 2:47 PM EST documented as of this encounter Care Teams Photovoltaic Fabrication Technician Relationship Specialty Start Date End Date Karon Dickson ANP [address] [place] [address] PCP - General Family Medicine 08/27/20 documented as of this encounter
--- OUTSIDE RECORDS SUMMARY | 2024-10-18 12:22 | XMS_ITS | Encounter Summary ---
Author Organization [employer] Address 75 [facility] 7t [place] [address] Care Team Providers Care Executive Sous Chef Name Role Phone Karon Dickson Primary Care Provider [phone] Reason for Visit * Reason Comments Med Refill Encounter Details Date Type Department Care Team ([facility] st Contact Info) Description 08/31/2023 Refill [facility] CHC MED & PEDS [address] [place], [place] [phone] Karon Dickson ANP 230 [place] [address] Impingement syndrome of right shoulder region Social [...] Description 12/27/2024 10:30 AM EDT Clinical Support [facility] CHC MED & PEDS 505 [place] [address] Sol Lennon, RN 505 [place] [address] 01/22/2025 11:00 AM EDT Office Visit [facility] MEDICINE [address] [place] [address] Karon Dickson ANP 230 [place] [address] documented as of this encounter Visit Diagnoses Diagnosis Impingement syndrome of right shoulder region documented in this encounter Additional Health Concerns Assessment Noted Time PHQ-9 Depression Total Score: 0 06/24/20 23 2:47 PM EST documented as of this encounter Care Teams Executive Sous Chef Relationship Specialty Start Date End Date Karon Dickson ANP [address] [place] [address] PCP - General Family Medicine 08/27/20 documented as of this encounter
--- OUTSIDE RECORDS SUMMARY | 2024-10-18 12:22 | XMS_ITS | Encounter Summary ---
Author Organization [employer] [facility] Address 75 [facility] 7t [place] [address] Care Team Providers Care Orthotics Assistant Name Role Phone Karon Dickson Primary Care Provider [phone] Encounter Details Date Type Department Care Team (Late Contact Info) Description 07/10/2022 Orders Only [facility] MEDICINE [address] [place] [address] Genoveva Jarrett RN Impingement syndrome of right [...] Description 12/27/2024 10:30 AM EDT Clinical Support [facility] CHC MED & PEDS 505 [place] [address] Sol Lennon, RN 505 [place] [address] 01/22/2025 11:00 AM EDT Office Visit [facility] MEDICINE [address] [place] [address] [phone] Karon Dickson ANP 230 [place] [address] documented as of this encounter Visit Diagnoses Diagnosis Impingement syndrome of right shoulder region- Primary documented in this encounter Care Teams Orthotics Assistant Relationship Specialty Start Date End Date Karon Dickson ANP 230 [place] [address] PCP - General Family Medicine 08/27/20 documented as of this encounter
--- OUTSIDE RECORDS SUMMARY | 2024-10-18 12:22 | XMS_ITS | Encounter Summary ---
Author Organization [employer] Address 75 [facility] 7t [place] [address] Care Team Providers Care Industrial Plant Custodian Name Role Phone Karon Dickson Primary Care Provider Reason for Visit * Reason Onset Date Comments Med Refill 04/20/2023 Encounter Details Date Type Department Care Team ([facility] st Contact Info) Description 04/20/2023 Refill [facility] MEDICINE 230 [place] [address] Karon Dickson ANP 230 [place] [address] Impingement syndrome of right shoulder region Social [...] Description 12/27/2024 10:30 AM EDT Clinical Support [facility] CHC MED & PEDS 505 [place] [address] Sol Lennon, RN 505 [place] [address] 01/22/2025 11:00 AM EDT Office Visit [facility] MEDICINE 230 [place] [address] Karon Dickson ANP 230 [place] [address] documented as of this encounter Visit Diagnoses Diagnosis Impingement syndrome of right shoulder region documented in this encounter Care Teams Industrial Plant Custodian Relationship Specialty Start Date End Date Karon Dickson ANP [address] [place] [address] PCP - General Family Medicine 08/27/20 documented as of this encounter
--- OUTSIDE RECORDS SUMMARY | 2024-10-18 12:22 | XMS_ITS | Encounter Summary ---
Author Organization [employer] Address 75 [facility] 7t [place] [address] Care Team Providers Care Body Repairer Name Role Phone Karon Dickson Primary Care Provider [phone] Reason for Visit * Reason Onset Date Comments Med Refill 10/20/2023 Encounter Details Date Type Department Care Team ([facility] st Contact Info) Description 10/20/[address] [facility] CHC MED & PEDS [address] [place], [place] [phone] Karon Dickson ANP 230 [place] [address] Impingement syndrome of right shoulder region Social [...] the past 12 months, has t he [employer], gas, oil or water company threatened to [...] 10:30 AM EDT Clinical Support [facility] CHC MED & PEDS 505 [place] [address] Sol Lennon, ANCA 505 [place] [address] 01/22/2025 11:00 AM EDT Office Visit [facility] MEDICINE [address] [place] [address] Karon Dickson ANP 230 [place] [address] documented as of this encounter Visit Diagnoses Diagnosis Impingement syndrome of right shoulder region documented in this encounter Additional Health Concerns Assessment Noted Time PHQ-9 Depression Total Score: 0 06/24/20 23 2:47 PM EST documented as of this encounter Care Teams Body Repairer Relationship Specialty Start Date End Date Karon Dickson ANP [address] [place] [address] PCP - General Family Medicine 08/27/20 documented as of this encounter
--- OUTSIDE RECORDS SUMMARY | 2024-10-18 12:22 | XMS_ITS | Encounter Summary ---
Author Organization [employer] Address 75 [facility] 7t [place] [address] Care Team Providers Care Associate Professor Of Medicine Name Role Phone Karon Dickson Primary Care Provider [phone] Reason for Visit * Reason Onset Date Comments Med Refill 07/28/2023 Encounter Details Date Type Department Care Team ([facility] st Contact Info) Description 07/28/[address] [facility] MEDICINE 230 [place], [place] [phone] Karon Dickson ANP 230 [place] [address] Essential hypertension Social History Tobacco Use Types [...] AM EDT Clinical Support [facility] CHC MED & PEDS 505 [place] [address] Sol Lennon, RN 505 [place] [address] 01/22/2025 11:00 AM EDT Office Visit [facility] MEDICINE [address] [place] [address] Karon Dickson ANP 230 [place] [address] documented as of this encounter Visit Diagnoses Diagnosis Essential hypertension Unspecified essential hypertension documented in this encounter Additional Health Concerns Assessment Noted Time PHQ-9 Depression Total Score: 0 06/24/20 23 2:47 PM EST documented as of this encounter Care Teams Associate Professor Of Medicine Relationship Specialty Start Date End Date Karon Dickson ANP [address] [place] [address] PCP - General Family Medicine 08/27/20 documented as of this encounter
--- OUTSIDE RECORDS SUMMARY | 2024-10-18 12:22 | XMS_ITS | Encounter Summary ---
Author Organization [employer] [facility] Address 75 [facility] 7t [place] [address] Care Team Providers Care Electric Motor Repairman Name Role Phone Karon Dickson Primary Care Provider [phone] Reason for Visit * Reason Comments Med Refill Encounter Details Date Type Department Care Team (Late Contact Info) Description 09/15/2022 Refill [facility] MEDICINE 230 [place], [place] [phone] Osvaldo Proctor MD 230 [place] [address] Impingement syndrome of right shoulder region Social [...] Description 12/27/2024 10:30 AM EDT Clinical Support [facility] CHC MED & PEDS 505 [place], [place] [phone] Sol Lennon RN 505 [place], [place] [phone] 01/22/2025 11:00 AM EDT Office Visit [facility] MEDICINE 230 [place] [address] Karon Dickson ANP 230 [place] [address] documented as of this encounter Visit Diagnoses Diagnosis Impingement syndrome of right shoulder region documented in this encounter Care Teams Electric Motor Repairman Relationship Specialty Start Date End Date Karon Dickson ANP 230 [place] [address] PCP - General Family Medicine 08/27/20 documented as of this encounter
--- OUTSIDE RECORDS SUMMARY | 2024-10-18 12:22 | XMS_ITS | Encounter Summary ---
Author Organization [employer] Address 75 [facility] 7t [place] [address] Care Team Providers Care Senior Technical Writer Name Role Phone Karon Dickson Primary Care Provider [phone] Reason for Visit * Reason Onset Date Comments Med Refill 04/28/2024 Encounter Details Date Type Department Care Team ([facility] st Contact Info) Description 04/28/2024 Refill [facility] CHC MED & PEDS [address] [place], [place] [phone] Karon Dickson ANP 230 [place] [address] Impingement syndrome of right shoulder region Social [...] the past 12 months, has t he [employer], gas, oil or water company threatened [...] 10:30 AM EDT Clinical Support [facility] CHC MED & PEDS 505 [place] [address] Sol Lennon, ANCA 505 [place] [address] 01/22/2025 11:00 AM EDT Office Visit [facility] MEDICINE [address] [place] [address] Karon Dickson ANP 230 [place] [address] documented as of this encounter Visit Diagnoses Diagnosis Impingement syndrome of right shoulder region documented in this encounter Additional Health Concerns Assessment Noted Time PHQ-9 Depression Total Score: 0 06/24/20 23 2:47 PM EST documented as of this encounter Care Teams Senior Technical Writer Relationship Specialty Start Date End Date Karon Dickson ANP [address] [place] [address] PCP - General Family Medicine 08/27/20 documented as of this encounter
--- OUTSIDE RECORDS SUMMARY | 2024-10-18 12:23 | XMS_ITS | Encounter Summary ---
Author Organization [employer] Address 75 [facility] 7t [place] [address] Care Team Providers Care Photograph Mounter Name Role Phone Karon Dickson Primary Care Provider [phone] Encounter Details Date Type Department Care Team (Latest Contact Info) Description 10/17/2024 Travel Social History Tobacco Use Types Packs/Day Years [...] 10:30 AM EDT Clinical Support [facility] CHC MED & PEDS 505 [place] [address] Sol Lennon, ANCA 505 [place] [address] 01/22/2025 11:00 AM EDT Office Visit [facility] MEDICINE 230 [place] [address] Karon Dickson ANP 230 [place] [address] documented as of this encounter Visit Diagnoses Not on filedocumented in this encounter Additional Health Concerns Assessment Noted Time PHQ-9 Depression Total Score: 1 07/11/19 25 11:22 AM EST documented as of this encounter Care Teams Photograph Mounter Relationship Specialty Start Date End Date Karon Dickson ANP [address] [place] [phone] PCP - General Family Medicine 08/27/20 documented as of this encounter
--- OUTSIDE RECORDS SUMMARY | 2024-10-18 12:23 | XMS_ITS | Encounter Summary ---
Author Organization [employer] Address [address] [facility] 7t [place] [address] Care Team Providers Care Internal Combustion Engine Subassembler Name Role Phone Karon Dickson Primary Care Provider [phone] Encounter Details Date Type Department Care Team (Latest Contact Info) Description 10/13/2024 Travel Social History Tobacco Use Types Packs/Day [...] 10:30 AM EDT Clinical Support [facility] CHC MED & PEDS 505 [place] [address] Sol Lennon, ANCA 505 [place] [address] 01/22/2025 11:00 AM EDT Office Visit [facility] MEDICINE 230 [place] [address] Karon Dickson ANP 230 [place] [address] documented as of this encounter Visit Diagnoses Not on filedocumented in this encounter Additional Health Concerns Assessment Noted Time PHQ-9 Depression Total Score: 1 07/11/19 25 11:22 AM EST documented as of this encounter Care Teams Internal Combustion Engine Subassembler Relationship Specialty Start Date End Date Karon Dickson ANP [address] [place] [address] PCP - General Family Medicine 08/27/20 documented as of this encounter
--- OUTSIDE RECORDS SUMMARY | 2024-10-18 12:23 | XMS_ITS | Encounter Summary ---
Author Organization [employer] Address 75 [facility] 7t [place] [address] Care Team Providers Care Diesel Locomotive Crane Operator Name Role Phone Karon Dickson Primary Care Provider [phone] Reason for Visit * Reason Onset Date Comments Med Refill 09/15/2022 Encounter Details Date Type Department Care Team ([facility] st Contact Info) Description 09/15/2022 Telephone [facility] MEDICINE 230 [place], [place] [phone] Karon Dickson ANP 230 [place] [address] Med Refill Social History Tobacco Use Types [...] * Telephone Encounter - Mona Roblero - 09/15/2022 12:41 PM EDT Tc from pt requesting med refill for medication traMADol (Ultram) 50 MG tablet. documented in this encounter Plan of Treatment Upcoming Encounters Date Type Department Care Team (Late st Contact Info) Description 12/27/2024 10:30 AM EDT Clinical Support [facility] CHC MED & PEDS 505 [place] [address] Sol Lennon, RN 505 [place], [place] 01/22/2025 11:00 AM EDT Office Visit [facility] MEDICINE 230 [place] [address] Karon Dickson ANP 230 [place] [address] documented as of this encounter Visit Diagnoses Not on filedocumented in this encounter Care Teams Diesel Locomotive Crane Operator Relationship Specialty Start Date End Date Karon Dickson ANP [address] [place] [phone] PCP - General Family Medicine 08/27/20 documented as of this encounter
--- OUTSIDE RECORDS SUMMARY | 2024-10-18 12:23 | XMS_ITS | Encounter Summary ---
Author Organization [employer] Address 75 [facility] 7t [place] [address] Care Team Providers Care Glove Former Name Role Phone Karon Dickson ROBERT Primary Care Provider [phone] Encounter Details Date Type Department Care Team ([facility] Contact Info) Description 10/13/2024 Orders Only [facility] CHC MED & PEDS 505 [place], [place] [phone] Felton Lerma MD 505 [place] [address] Inflammatory acne Social History Tobacco Use Types Packs/Day Years [...] Description 12/27/2024 10:30 AM EDT Clinical Support [facility] CHC MED & PEDS 505 [place] [address] Sol Lennon, ANCA 505 [place] [address] 01/22/2025 11:00 AM EDT Office Visit [facility] MEDICINE [address] [place] [address] Karon Dickson ANP 230 [place] [address] documented as of this encounter Visit Diagnoses Diagnosis Inflammatory acne documented in this encounter Additional Health Concerns Assessment Noted Time PHQ-9 Depression Total Score: 1 07/11/19 25 11:22 AM EST documented as of this encounter Care Teams Glove Former Relationship Specialty Start Date End Date Karon Dickson ANP [address] [place] [address] PCP - General Family Medicine 08/27/20 documented as of this encounter
--- OUTSIDE RECORDS SUMMARY | 2024-10-18 12:23 | XMS_ITS | Encounter Summary ---
Author Organization [employer] Address 75 [facility] 7t [place] [address] Care Team Providers Care Correspondence Clerk Name Role Phone Karon Dickson Primary Care Provider [phone] Reason for Visit * Reason Onset Date Comments Appointment Request 03/22/2024 Encounter Details Date Type Department Care Team ([facility] Contact Info) Description 03/22/2024 Telephone [facility] MEDICINE 230 [place], [place] [phone] Karon Dickson ANP 230 [place] [address] Appointment Request Social History Tobacco Use Types [...] 10:30 AM EDT Clinical Support [facility] CHC MED & PEDS 505 [place] [address] Sol Lennon, ANCA 505 [place] [address] 01/22/2025 11:00 AM EDT Office Visit [facility] MEDICINE 230 [place] [address] Karon Dickson ANP 230 [place] [address] documented as of this encounter Visit Diagnoses Not on filedocumented in this encounter Additional Health Concerns Assessment Noted Time PHQ-9 Depression Total Score: 0 06/24/20 23 2:47 PM EST documented as of this encounter Care Teams Correspondence Clerk Relationship Specialty Start Date End Date Karon Dickson ANP 230 [place] [address] PCP - General Family Medicine 08/27/20 documented as of this encounter
--- OUTSIDE RECORDS SUMMARY | 2024-10-18 12:23 | XMS_ITS | Encounter Summary ---
Author Organization [employer] Address 75 [facility] 7t [place] [address] Care Team Providers Care Cattle Dehorner Name Role Phone Karon Dickson Primary Care Provider [phone] Reason for Visit * Reason Onset Date Comments Med Refill 01/04/2023 Encounter Details Date Type Department Care Team ([facility] st Contact Info) Description 01/04/[address] [facility] MEDICINE 230 [place] [address] Karon Dickson ANP 230 [place] [address] Impingement syndrome of right shoulder region Social [...] Description 12/27/2024 10:30 AM EDT Clinical Support [facility] MED & PEDS 505 [place] [address] Sol Lennon, RN 505 [place] [address] 01/22/2025 11:00 AM EDT Office Visit [facility] MEDICINE 230 [place] [address] Karon Dickson ANP [address] [place] [address] documented as of this encounter Visit Diagnoses Diagnosis Impingement syndrome of right shoulder region documented in this encounter Care Teams Cattle Dehorner Relationship Specialty Start Date End Date Karon Dickson ANP [address] [place] [address] PCP - General Family Medicine 08/27/20 documented as of this encounter
--- OUTSIDE RECORDS SUMMARY | 2024-10-18 12:23 | XMS_ITS | Encounter Summary ---
Author Organization [employer] [facility] Address 75 [facility] 7t [place] [address] Care Team Providers Care Falafel Cart Cook Name Role Phone Karon Dickson Primary Care Provider [phone] Reason for Visit * Reason Comments Med Refill Encounter Details Date Type Department Care Team ([facility] st Contact Info) Description 12/07/2022 Refill [facility] MEDICINE 230 [place], [place] [phone] Karon Dickson ANP 230 [place] [address] Impingement syndrome of right shoulder region Social [...] Upcoming Encounters Date Type Department Care Team ([facility] st Contact Info) Description 12/27/2024 10:30 AM EDT Clinical Support [facility] MED & PEDS 505 [place] [address] Sol Lennon, ANCA 505 [place] [address] 01/22/2025 11:00 AM EDT Office Visit [facility] MEDICINE 230 [place] [address] Karon Dickson ANP 230 [place] [address] documented as of this encounter Visit Diagnoses Diagnosis Impingement syndrome of right shoulder region documented in this encounter Care Teams Falafel Cart Cook Relationship Specialty Start Date End Date Karon Dickson ANP [address] [place] [address] PCP - General Family Medicine 08/27/20 documented as of this encounter
--- OUTSIDE RECORDS SUMMARY | 2024-10-18 12:23 | XMS_ITS | Encounter Summary ---
Author Organization [employer] Address 75 [facility] 7t [place] [address] Care Team Providers Care Telehealth Nurse Educator Name Role Phone Karon Dickson Primary Care Provider [phone] Reason for Visit * Reason Onset Date Comments triage 09/16/2022 Encounter Details Date Type Department Care Team ([facility] Contact Info) Description 09/16/2022 Telephone [facility] MEDICINE 230 [place], [place] [phone] Karon Dickson ANP 230 [place] [address] triage Social History Tobacco Use Types Packs/Day [...] RN - 09/23/2022 3:32 PM EDT Per Ge , pt filled 30 day supply of [...] [facility] CHC MED & PEDS 505 [place] [address] Sol Lennon, RN 505 [place] [address] 01/22/2025 11:00 AM EDT Office Visit [facility] MEDICINE 230 [place] [address] Karon Dickson ANP 230 [place] [address] documented as of this encounter Visit Diagnoses Diagnosis Impingement syndrome of right shoulder region documented in this encounter Care Teams Telehealth Nurse Educator Relationship Specialty Start Date End Date Karon Dickson ANP 230 [place] [address] PCP - General Family Medicine 08/27/20 documented as of this encounter
--- OUTSIDE RECORDS SUMMARY | 2024-10-18 12:23 | XMS_ITS | Encounter Summary ---
Author Organization [employer] [facility] Address 75 [facility] 7t [place] [address] Care Team Providers Care Regulatory Assistant Name Role Phone Karon Dickson Primary Care Provider [phone] Reason for Visit * Reason Onset Date Comments Med Refill 02/01/2023 Encounter Details Date Type Department Care Team (Late st Contact Info) Description 02/01/2023 Refill [facility] MEDICINE 230 [place] [address] Karon Dickson ANP 230 [place] [address] Impingement syndrome of right shoulder region Social [...] 12/27/2024 10:30 AM EDT Clinical Support [facility] CHC MED & PEDS 505 [place] [address] Sol Lennon, ANCA 505 [place] [address] 01/22/2025 11:00 AM EDT Office Visit [facility] MEDICINE [address] [place] [address] Karon Dickson ANP [address] [place] [address] documented as of this encounter Visit Diagnoses Diagnosis Impingement syndrome of right shoulder region documented in this encounter Care Teams Regulatory Assistant Relationship Specialty Start Date End Date Karon Dickson ANP [address] [place] [address] PCP - General Family Medicine 08/27/20 documented as of this encounter
--- OUTSIDE RECORDS SUMMARY | 2024-10-18 12:23 | XMS_ITS | Encounter Summary ---
Author Organization [employer] Address 75 [facility] 7 [place] [address] Care Team Providers Care Senior Product Development Manager Name Role Phone Karon Dickson ROBERT Primary Care Provider [phone] Reason for Visit * Reason Comments Acne Encounter Details Date Type Department Care Team ([facility] Contact Info) Description 10/13/2024 3:40 PM EDT Office Visit [facility] CHC MED & PEDS 505 [place] [address] Felton Lerma MD 505 [place] [address] Inflammatory acne (Primary Dx) Social History Tobacco Use Types [...] the past 12 months, has t he [employer], gas, oil or water company threatened [...] AM EDT documented as of this encounter Last Filed Vital Signs Vital Sign Reading Time Taken Comments Blood Pressure 126/87 10/13/2024 9:59 AM EDT Pulse 84 10/13/2024 9:59 AM EDT Temperature 36.6 ??C (97.8 ??F) 10/13/2024 9:59 AM ED T Respiratory Rate 20 10/13/2024 9:59 AM EDT Oxygen Saturation 98% 10/13/2024 9:59 AM EDT Inhaled Oxygen Concentration - - Weight 125 kg (275 lb 2 oz) 10/13/2024 9:59 AM E DT Height 190.5 cm (6' 3 ) 10/13/2024 9:59 AM EDT Body Mass Index 34.39 10/13/2024 9:59 AM EDT documented in this encounter Progress Notes * Felton Lerma MD - 10/13/2024 3:40 PM EDT Subjective Patient ID: Shahram Dougherty is a 38 y.o. male who presents for Acne. HPI Pt is here to get a refill on his Accutane. No further acneiform lesions since the last visit. Had received 2400 mg since his last refill. [place] 29164 [place] [address] mg. Medication is well tolerated. Has dry mouth managed w/ hydration and hydrating lipsticks. Patient Active Problem List Diagnosis Cervical radiculopathy Impingement syndrome of right shoulder region Scapulothoracic bursitis Cubital tunnel syndrome Hypertriglyceridemia Impaired fasting glucose Inflammatory acne Scrotal varices Anxiety Elevated alanine aminotransferase (ALT) level Acquired trigger finger Obesity Cyst of epididymis Perineal abscess Essential hypertension Long-term current use of opiate analgesic No Known Allergies Review of Systems Constitutional: Negative for appetite change, chills and diaphoresis. Eyes: Negative for photophobia, pain and redness. Respiratory: Negative for cough, choking and shortness of breath. Genitourinary: Negative for genital sores and hematuria. Musculoskeletal: Negative for back pain and gait problem. Objective BP 126/87 (BP Location: Right arm, Patient Position: Sitting, BP Cuff Size: Large adult) Pulse 84 Temp 97.8 ??F (36.6 ??C) (Oral) Resp 20 Ht 6' 3 (1.905 m) Wt 275 lb 2 oz (125 kg) SpO2 98% BMI 34.39 kg/m?? Physical Exam Constitutional: General: He is not in acute distress. Appearance: Normal appearance. He is not ill-appearing, toxic-appearing or diaphoretic. Pulmonary: Effort: Pulmonary effort is normal. Skin: Comments: No papules or pustules on the face, axilla and chest Multiple scars of the cheeks b/l Neurological: Mental Status: He is alert. Assessment/Plan Diagnoses and all orders for this visit: Inflammatory acne Comments: [employer] accessed. Pt's chart is updated. His pharmacy was called after the medication was sent. I will be called if needed. documented in this encounter Plan of Treatment Upcoming Encounters Date Type Department Care Team ([facility] st Contact Info) Description 12/27/2024 10:30 AM EDT Clinical Support [facility] MED & PEDS 505 [place] [address] Sol Lennon RN 505 [place] [address] 01/22/2025 11:00 AM EDT Office Visit [facility] MEDICINE 230 [place] [address] Karon Dickson ANP 230 [place] [address] documented as of this encounter Visit Diagnoses Diagnosis Inflammatory acne- Primary documented in this encounter Additional Health Concerns Assessment Noted Time PHQ-9 Depression Total Score: 1 07/11/19 25 11:22 AM EST documented as of this encounter Care Teams Senior Product Development Manager Relationship Specialty Start Date End Date Karon Dickson ANP 230 [place] [address] PCP - General Family Medicine 08/27/20 documented as of this encounter
--- OUTSIDE RECORDS SUMMARY | 2024-10-18 12:23 | XMS_ITS | Encounter Summary ---
Author Organization [employer] [facility] Address 75 [facility] 7t [place] [address] Care Team Providers Care Supervisor Sheet Manufacturing Name Role Phone Karon Dickson Primary Care Provider [phone] Reason for Visit * Reason Onset Date Comments Med Refill 02/01/2023 Encounter Details Date Type Department Care Team (Late st Contact Info) Description 02/01/2023 Refill [facility] MEDICINE 230 [place] [address] Karon Dickson ANP 230 [place] [address] Impingement syndrome of right shoulder region Social [...] Description 12/27/2024 10:30 AM EDT Clinical Support [facility] CHC MED & PEDS 505 [place] [address] Sol Lennon, ANCA 505 [place] [address] 01/22/2025 11:00 AM EDT Office Visit [facility] MEDICINE [address] [place] [address] Karon Dickson ANP [address] [place] [address] documented as of this encounter Visit Diagnoses Diagnosis Impingement syndrome of right shoulder region documented in this encounter Care Teams Supervisor Sheet Manufacturing Relationship Specialty Start Date End Date Karon Dickson ANP [address] [place] [address] PCP - General Family Medicine 08/27/20 documented as of this encounter
--- OUTSIDE RECORDS SUMMARY | 2024-10-18 12:23 | XMS_ITS | Encounter Summary ---
Author Organization [employer] Address [address] [facility] [address] [place] [address] Care Team Providers Care Office Assistant Receptionist Name Role Phone Karon Dickson Primary Care Provider [phone] Reason for Visit * Reason Comments Hypertension Encounter Details Date Type Department Care Team ([facility] Contact Info) Description 10/17/2024 11:00 AM EDT Office Visit [facility] MEDICINE [address] [place], [place] [phone] Karon Dickson ANP [address] [place] [address] Essential hypertension (Primary Dx); Need for hepatitis B screening test; Impaired fasting glucose; Class 1 obesity with serious comorbidity and body mass index (BMI) of 34.0 to 34.9 in adult, unspecified obesity type Social History Tobacco Use Types Packs/Day Years [...] Pulse 94 10/17/2024 11:03 AM EDT Temperature - - Respiratory Rate 16 10/17/2024 11:03 AM EDT Oxygen Saturation - - Inhaled Oxygen Concentration - - Weight 127 kg (279 lb) 10/17/2024 11:03 AM EDT Height 190.5 cm (6' 3 ) 10/17/2024 11:03 AM EDT Body Mass Index 34.87 10/17/2024 11:03 AM EDT documented in this encounter Progress Notes * ROBERT Fernandes - 10/17/2024 11:00 AM EDT Subjective Patient ID: Shahram Dougherty is a 38 y.o. male who presents for Hypertension. HPI PMH incl HTN, chronic pain, acne, cervical radiculopathy S/p left volar wrist ganglion cyst excision 10/05/24 w/ Dr. Baltazar HTN: He is on olmesartan 40 mg once daily. BP here is elevated but reports BP at home is good and at specialist visits it has been also good. BP Readings from Last 4 Encounters: 10/17/24 (!) 130/100 10/13/24 126/87 08/21/24 137/85 07/11/24 (!) 142/97 His mom in August with hemorrhagic stroke which has been really difficult. She was an organ donor which has been comforting. Here today for weight check. He would like to lose weight. He is very active and tries to eat healthy and has not lost weight. BMI Readings from Last 4 Encounters: 10/17/24 34.87 kg/m?? 10/13/24 34.39 kg/m?? 08/21/24 35.12 kg/m?? 07/11/24 34.92 kg/m?? Wt Readings from Last 4 Encounters: 10/17/24 279 lb (127 kg) 10/13/24 275 lb 2 oz (125 kg) 08/21/24 281 lb (127 kg) 07/11/24 279 lb 6.4 oz (127 kg) Understands that weight loss medications must be used as part of a comprehensive lifestyle plan that incorporates daily exercise, adequate protein intake, decreased soda and sugary beverage consumption, decreased caloric intake. Non-smoker, lives w/ and kids. Review of Systems Constitutional: Negative for chills and fever. HENT: Negative for sore throat. Respiratory: Negative for cough and shortness of breath. Cardiovascular: Negative for chest pain. Gastrointestinal: Negative for constipation and diarrhea. Endocrine: Negative for polydipsia, polyphagia and polyuria. Genitourinary: Negative for dysuria. Musculoskeletal: Positive for arthralgias. Neurological: Negative for weakness. Objective BP (!) 130/100 (BP Location: Right arm, Patient Position: Sitting, BP Cuff Size: Large adult) Pulse 94 Resp 16 Ht 6' 3 (1.905 m) Wt 279 lb (127 kg) BMI 34.87 kg/m?? Physical Exam Vitals reviewed. Constitutional: General: He is not in acute distress. Appearance: Normal appearance. He is not ill-appearing. HENT: Head: Normocephalic and atraumatic. Eyes: General: No scleral icterus. Extraocular Movements: Extraocular movements intact. Pupils: Pupils are equal, round, and reactive to light. Cardiovascular: Rate and Rhythm: Normal rate and regular rhythm. Pulmonary: Effort: Pulmonary effort is normal. No accessory muscle usage or respiratory distress. Skin: Comments: Scarring on face, inflammatory acne Neurological: Mental Status: He is alert and oriented to person, place, and time. Psychiatric: Mood and Affect: Mood normal. Behavior: Behavior normal. Assessment/Plan Diagnoses and all orders for this visit: Essential hypertension Above goal </= 130/80. Reports home BP < 130/80. Continue to encourage low salt diet, regular exercise, home BP monitoring, compliance with medications. Call clinic if BP is frequently >150/90 Go to ED/call 911 if > 170/100 and having sx such as ADKINS, visual changes, chest pain, SOB Last renal function: Lab Results Component Value Date GLUCOSE 114 10/28/2023 NA 138 10/28/2023 K 3.6 10/28/2023 CO2 24 10/28/2023 CL 103 10/28/2023 BUN 17 (H) 10/28/2023 CREATININE 0.89 10/28/2023 EGFR >60 10/28/2023 No results found for: MICROALBCREA Lab Results Component Value Date MICROALBCREU 4.5 10/28/2023 Need for hepatitis B screening test - Hepatitis B Core Antibody, Total; Future - Hepatitis B surface antigen, EIA; Future - Hepatitis B Surface Antibody, Qualitative; Future Impaired fasting glucose - Hemoglobin A1c; Future Class 1 obesity with serious comorbidity and body mass index (BMI) of 34.0 to 34.9 in adult, unspecified obesity type Recommend: Daily exercise at least 30min, moderate intensity, incorporating both cardiovascular exercise and weight training. Adequate protein intake, Recommended at least 20 g per meal of protein to assist with satiety. Decrease soda and sugary beverage consumption. Weight loss medications must be used as part of a comprehensive lifestyle plan that incorporates the recommendations above. Pt has tried to lose weight for at least 4 mos via improved nutrition/reduced caloric intake and increased physical activity and has not lost weight. Baseline weight: -given BMI >30kg/m2 or >27kg/m2 with one or more weight related comorbidities pt is a candidate for glucagon-like peptide-1s (GLP-1) to assist with weight loss -pt has attempted > 3 months of dietary changes and increased physical activity without significant reduction in weight -patient counseled this medication is to be used in combination with reduced calorie diet and increased physical activity -Contraindication to phentermine: uncontrolled hypertension -Reviewed w/ pt side effects of GLP1 and how to mitigate incl eating small portions and do not eat through sensation of fullness. No personal or family h/o papillary thyroid cancer. No personal h/o pancreatitis. Does not have known retinopathy. Refrigerate but do not freeze. -For Zepbound (tirzepatide) Start 2.5mg subcutaneously q week x 1 month, then 5mg subcutaneously q week. May increased by 2.5mgq 4 weeks with max 15mg/wk - Tirzepatide-Weight Management (Zepbound) 2.5 MG/0.5ML solution auto-injector; Inject 0.5 mL (2.5 mg) under the skin 1 (one) time per week. documented in this encounter Plan of Treatment Upcoming Encounters Date Type Department Care Team (Late st Contact Info) Description 12/27/2024 10:30 AM EDT Clinical Support [facility] MED & PEDS [address] [place] [address] Sol Lennon, ANCA [address] [place] [address] 01/22/2025 11:00 AM EDT Office Visit [facility] MEDICINE [address] [place] [address] Karon Dickson ANP [address] [place] [address] Scheduled Orders Name Type Priority Associated Diagnoses Orde r Schedule Hepatitis B Core Antibody, Total Lab Routine Need for hepatitis B screening test Expected: 10/17/2024 (Approximate), Expires: 10/17/2025 Hepatitis B surface antigen, EIA Lab Routine Need for hepatitis B screening test Expected: 10/17/2024 (Approximate), Expires: 10/17/2025 Hepatitis B Surface Antibody, Qualitative Lab Routine Need for hepatitis B screening test Expected: 10/17/2024 (Approximate), Expires: 10/17/2025 Hemoglobin A1c Lab Routine Impaired fasting glucose Expected: 10/17/2024 (Approximate), Expires: 10/17/2025 documented as of this encounter Visit Diagnoses Diagnosis Essential hypertension- Primary Unspecified essential hypertension Need for hepatitis B screening test Impaired fasting glucose Class 1 obesity with serious comorbidity and body mass index (BMI) of 34.0 to 34.9 in adult, unspecified obesity type documented in this encounter Additional Health Concerns Assessment Noted Time PHQ-9 Depression Total Score: 1 07/11/19 25 11:22 AM EST documented as of this encounter Care Teams Office Assistant Receptionist Relationship Specialty Start Date End Date Karon Dickson ANP [address] [place] [address] PCP - General Family Medicine 08/27/20 documented as of this encounter
--- OUTSIDE RECORDS SUMMARY | 2024-10-18 12:23 | XMS_ITS | Encounter Summary ---
Author Organization [employer] [facility] Address [address] [facility] [address] [place] [address] Care Team Providers Care Estimating Manager Name Role Phone Karon Dickson Primary Care Provider [phone] Reason for Visit * Reason Comments Med Refill Encounter Details Date Type Department Care Team (Late st Contact Info) Description 01/04/2023 Refill [facility] MEDICINE [address] [place], [place] [phone] Karon Dicksno ANP [address] [place] [address] Impingement syndrome of right shoulder region Social [...] Description 12/27/2024 10:30 AM EDT Clinical Support [facility] CH[facility] MED & PEDS [address] [place], [place] [phone] Sol Lennon, ANCA [address] [place] [address] 01/22/2025 11:00 AM EDT Office Visit [facility] MEDICINE [address] [place] [address] Karon Dickson ANP [address] [place] [address] documented as of this encounter Visit Diagnoses Diagnosis Impingement syndrome of right shoulder region documented in this encounter Care Teams Estimating Manager Relationship Specialty Start Date End Date Karon Dickson ANP [address] [place] [id number] PCP - General Family Medicine 08/27/20 documented as of this encounter
== END 2024-10-18 11:15 | disposition home or self-care (01) ==
LOC: HO.HOS 10:29
PROVIDERS: PCP Nurse Practitioner Primary Care
DX: M67.432 Ganglion, left wrist (principal)
CPT/HCPCS: 99024

== ENCOUNTER → 2024-10-18 10:28 | Outpatient (BNVA) | payer MEDICAID, SELFPAY | PROVIDERS: PCP Nurse Practitioner Primary Care | DX: Z09 Encounter for follow-up examination after completed treatment for conditions other than malignant neoplasm (principal); Z87.39 Personal history of other diseases of the musculoskeletal system and connective tissue; Z98.890 Other specified postprocedural states | CPT/HCPCS: 99212 ==

== ENCOUNTER 2025-01-12 10:12 | Outpatient (REF) | payer OTHER, SELFPAY ==
--- OUTSIDE RECORDS SUMMARY | 2025-01-12 10:34 | XMS_ITS | Clinical Summary ---
Author Organization [employer] [facility] Address [address] [place] [address] Care Team Providers Care Dock Manager Name Role Phone Unavailable Primary Care Provider [...] 2005 COVID-19 Vaccine (2023-2 5 season) 2024 Depression Screening 06/28/2024 Influenza Vaccine (#1) 2025 HIB Vaccines Aged Out No longer [...] 5 Years) and At-Risk Patients (6 to 49 Years) Aged Out No longer eligible b ased on patient's age to complete this topic RSV Immunization Patients Un mahendra 20 months Aged Out No longer eligible b ased on patient's age to complete this topic Varicella Vaccines Aged Out No longer eligible based on patient's age to complete this topic
--- OUTSIDE RECORDS SUMMARY | 2025-01-12 10:34 | XMS_ITS | Clinical Summary ---
Author Organization [facility] Address [address] [facility] [address] [place] [phone] Phone Care Team Providers Care Business Continuity Consultant Name Role Phone Karon Dickson ROBERT Primary Care Provider [phone] Social History Tobacco Use Types Packs/Day Years [...] at Not on file Legal Sex Male 10:18 AM EDT Gender Identity Not on file Sexual Orientation [...] age to complete this topic MENINGOCOCCAL VACCINES (B) Aged Out N o longer eligible based on patient's age to complete this topic PNEUMOCOCCAL VACCINES (0-49 years) Aged Out No longer eligible b ased on patient's age to complete this topic Medical Devices Not on file Insurance C3 ACO C3 ACO C3 ACO C3 ACO C3 ACO C3 ACO Care Teams Business Continuity Consultant Relationship Specialty Start Date End Date Karon Dickson ANP [address] [place] [id number] PCP - General Nurse Practitioner 04/21/24 Additional Source Comments The information contained in this document represents components of the legal health record. It is not the complete legal health record.[facility]
--- OUTSIDE RECORDS SUMMARY | 2025-01-12 10:34 | XMS_ITS | Encounter Summary ---
Author Organization [employer] Address [address] [facility] [address] [place] [address] Care Team Providers Care Die Maker Electronic Name Role Phone Karon Dickson Primary Care Provider [phone] Reason for Visit * Reason Comments Med Refill Encounter Details Date Type Department Care Team ([facility] Contact Info) Description 04/20/2023 Refill [facility] MEDICINE [address], [place] [phone] Karon Dickson ANP [address] [place] [address] Impingement syndrome of right shoulder region Social [...] AM EDT documented as of this encounter Functional Status * Over the last 2 weeks, how often have you been bothered by any of the following problems? Question Answer Date of Assessment Author Feeling nervous, anxious, or on edge 0 04/20/2023 11:20 AM EDT Sol Lennon RN Not being able to stop or co ntrol worrying 0 04/20/2023 11:20 AM EDT Sol Lennon RN Worrying too much about diff erent things 0 04/20/2023 11:20 AM EDT Sol Lennon RN Trouble relaxing 0 04/20/2023 11:20 AM EDT Sol Lennon RN Being so restless that it is hard to sit still 0 04/20/2023 11:20 AM EDT Sol Lennon RN Becoming easily annoyed or irritable 0 04/20/2023 11:20 AM EDT Sol Lennon RN Feeling afraid as if somethi ng awful might happen 0 04/20/2023 11:20 AM EDT Sol Lennon RN TERELL-7 Total Score 0 04/20/2023 11:20 AM EDT Sol Lennon RN documented as of this encounter Plan of Treatment Upcoming Encounters Date Type Department Care Team (Late st Contact Info) Description 02/13/2025 10:00 AM EDT Clinical Support [facility] MED & [facility]S [address] [facility] [place] [address] Sol Lennon RN [address] [facility] [place] [address] 03/06/2025 10:15 AM EDT Office Visit [facility] MEDICINE [address] [place] [address] Karon Dickson ANP [address] [place] [address] documented as of this encounter Visit Diagnoses Diagnosis Impingement syndrome of right shoulder region documented in this encounter Care Teams Die Maker Electronic Relationship Specialty Start Date End Date Karon Dickson ANP [address] [place] [address] PCP - General Family Medicine 08/27/20 documented as of this encounter
[2025-01-12 12:07] LABS: Hemoglobin A1C 155.2802 umol/L; Total Hemoglobin (HGBA1C) 4398.3921 umol/L
[2025-01-12 12:08] LABS: Anion Gap 11 (12-20); Blood Urea Nitrogen 17 mg/dL (9-16); Calcium 9.7 mg/dL (8.4-10.2); Carbon Dioxide 27 mmol/L (22-29); Chloride 105 mmol/L (96-108); Estimated Glomerular Filt Rate > 60; Potassium 4.3 mmol/L (3.3-5.1); Sodium 139 mmol/L (135-145)
[2025-01-12 12:33] LABS: HBS Num1 295.15 mIU/mL (0-7.99); HBc Num1 0.06 S/CO (0.00-0.79); HBsAGNum1 0.34 S/CO (0.00-0.99); Hepatitis B Surface Antigen Negative (Negative); ~Hepatitis B Surface Antibody REACTIVE (Nonreactive)
[2025-01-15 16:49] LABS: TS Negative Control Passed; TS Panel A 0; TS Panel B 0; TS Positive Control Passed; TSpotTB Negative (Negative)
== END 2025-01-12 10:13 | disposition home or self-care (01) ==
LOC: HO.HHCL 10:12
PROVIDERS: PCP Nurse Practitioner Primary Care; Visit Provider Internal Medicine Geriatric Medicine
DX: Z00.00 Encounter for general adult medical examination without abnormal findings (principal); N17.9 Acute kidney failure, unspecified; I95.89 Other hypotension; R73.01 Impaired fasting glucose; Z11.59 Encounter for screening for other viral diseases; I10 Essential (primary) hypertension
CPT/HCPCS: 36415; 80048; 82043; 82570; 83036; 86481; 86704; 86706; 87340